=== PATIENT | male | born 1950 | race Caucasian/White ===

== ENCOUNTER 2017-06-24 23:58 | Emergency (ER) | payer OTHER ==
[~2017-06-24] VITALS: Ht 185.4 cm; Wt 104.3 kg
[~2017-06-24 23:58] MED LIST: ALBU90I INH; ALBU90OI INH; ALBU90OI6 INH; ALBU90OI61 INH; ALPR1 PO; AMIO200 PO; AMIT25 PO; AMOX250 PO; ARTAIN; ARTANE; ASPI81EC PO; ATOR40TA PO; AZIT250 PO; Aspir-Low81 MG PO; BENZ.5 PO; BENZ2 PO; CARV3.125 PO; CEPH500 PO; CHLO100 PO; CHOL10002 PO; CLON1 PO; CLON2 PO; CLOP75 PO; CODGUAEL PO; CRUTCH3 USE; DIGO.125 PO; DIPATR PO; DIVA250EC PO; DIVA250ER PO; DIVA500ER PO; FANAPT8 MG PO; FEBU40TA; FEBU40TA PO; FLORICET PO; FLUR15 PO; FURO40 PO; HALO5 PO; HYDACE10B PO; HYDACE5 PO; HYDHCL10EL PO; HYDMETSO OP; HYDPAM50 PO; LATUDA PO; LEVO750 PO; LISI10 PO; LISI20 PO; LISI5 PO; LITH300C PO; LOXA10 PO; MAGOXI400 PO; METO25ER PO; METO50 PO; METO50ER PO; NAPR500 PO; Namenda10 MG PO; OMEP20ER PO; OXYACE5T PO; OXYACE7.5T PO; OXYC15ER PO; OXYC1TAB11; OXYC1TAB11 PO; OXYC30ER PO; OXYC5 PO; Omeprazole20 M1 PO; Oxycodone-Apap1 EAC3; PALI6TA; POTCHL10ER PO; POTCHL20ER PO; PRED20 PO; Percocet 5-3251 EACH PO; QUET300 PO; RANI150 PO; RXTRAM50 PO; Roxicodone5 MG PO; SPIR25 PO; TEMA15 PO; TEMA30 PO; THORAZINE; TRAM50 PO; TRAZ150T57 PO; TRIA80TC; TRIA80TC TOP; Trihexyphenidyl2 MG PO; Trihexyphenidyl5 MG PO; VITAMIN D-32000 UNIT PO; VRAYLAR1.5 MG PO; WARF1 PO; WARF5 PO; XARELTO10 MG PO; XARELTO20 MG PO; Xanax0.5 MG PO; Zofran Odt4 MG SL; [UNRECOGNIZED DRUG - OTHER] PO
[2017-06-25] MEDS ORDERED: ENTRESTO 24 MG1 EACH PO (00:32)
[2017-06-25] MEDS ORDERED: TORSE20 PO (00:32)
[2017-06-25] MEDS ORDERED: LITH300C PO (00:33)
[2017-06-25 00:54] LABS: BASOPHILS ABSOLUTE AUTO 0.03 K/mm3 (0.00-0.23); BASOPHILS PERCENT AUTO 0 % (0-2); EOSINOPHILS ABSOLUTE AUTO 0.19 K/mm3 (0.00-0.68); EOSINOPHILS PERCENT AUTO 2 % (0-6); Hematocrit 40.9 % (37.0-53.0); Hemoglobin 13.2 g/dL (13.5-17.5); IMMATURE GRAN ABSOLUTE AUTO 0.06 K/mm3 (0.00-0.10); IMMATURE GRAN PERCENT AUTO 1 % (0-1); LYMPHOCYTES ABSOLUTE AUTO 1.21 K/mm3 (0.84-5.20); LYMPHOCYTES PERCENT AUTO 12 % (21-46); MONOCYTES ABSOLUTE AUTO 1.31 K/mm3 (0.16-1.47); MONOCYTES PERCENT AUTO 12 % (4-13); Mean Corpuscular HGB 30.9 pg (26.0-34.0); Mean Corpuscular HGB Conc 32.3 g/dL (31.5-36.5); Mean Corpuscular Volume 96 fL (80-100); Mean Platelet Volume 9.8 fL (9.1-12.4); NEUTROPHILS ABSOLUTE AUTO 7.73 K/mm3 (1.96-9.15); NEUTROPHILS PERCENT AUTO 73 % (41-73); Platelet Count 186 K/mm3 (150-400); RDW Coefficient Variation 13.6 % (11.7-14.2); RDW Standard Deviation 47.9 fL (35.1-46.3); Red Blood Cell Count 4.27 M/mm3 (4.30-5.90); White Blood Cell Count 10.53 K/mm3 (4.00-11.30)
== END 2017-06-25 02:09 | disposition home or self-care (01) ==
LOC: ER 23:58
PROVIDERS: Emergency Medicine
DX: M25.461 Effusion, right knee (principal); M25.561 Pain in right knee; F25.9 Schizoaffective disorder, unspecified; G20 Parkinson's disease; Z88.8 Allergy status to other drugs, medicaments and biological substances; Z88.5 Allergy status to narcotic agent; Z88.2 Allergy status to sulfonamides; Z79.899 Other long term (current) drug therapy; Z87.891 Personal history of nicotine dependence
CPT/HCPCS: 36415; 73562-RT; 85025; 85651; 86140; 99283

== ENCOUNTER 2017-06-27 14:56 | Emergency (ER) | payer OTHER ==
[~2017-06-27] VITALS: Ht 185.4 cm; Wt 104.3 kg
[~2017-06-27 14:56] MED LIST changes: +ENTRESTO 24 MG1 EACH PO; +TORSE20 PO
== END 2017-06-27 16:43 | disposition home or self-care (01) ==
LOC: ER 14:56
DX: S80.11XA Contusion of right lower leg, initial encounter (principal); F31.9 Bipolar disorder, unspecified; Z88.8 Allergy status to other drugs, medicaments and biological substances; Z88.2 Allergy status to sulfonamides; Z88.1 Allergy status to other antibiotic agents; Z79.899 Other long term (current) drug therapy; Z87.891 Personal history of nicotine dependence; X58.XXXA Exposure to other specified factors, initial encounter
CPT/HCPCS: 93971; 99284

== ENCOUNTER 2017-09-17 19:56 | Inpatient (IN) | payer OTHER ==
[~2017-09-17] VITALS: Ht 182.9 cm; Wt 100.6 kg
[~2017-09-17 19:56] MED LIST changes: +Amiodarone HCl200 MG PO
[2017-09-17 20:55] LABS: BASOPHILS ABSOLUTE AUTO 0.05 K/mm3 (0.00-0.23); BASOPHILS PERCENT AUTO 0 % (0-2); EOSINOPHILS ABSOLUTE AUTO 0.26 K/mm3 (0.00-0.68); EOSINOPHILS PERCENT AUTO 2 % (0-6); Hematocrit 40.6 % (37.0-53.0); Hemoglobin 13.2 g/dL (13.5-17.5); IMMATURE GRAN ABSOLUTE AUTO 0.06 K/mm3 (0.00-0.10); IMMATURE GRAN PERCENT AUTO 1 % (0-1); LYMPHOCYTES ABSOLUTE AUTO 1.38 K/mm3 (0.84-5.20); LYMPHOCYTES PERCENT AUTO 11 % (21-46); MONOCYTES ABSOLUTE AUTO 1.47 K/mm3 (0.16-1.47); MONOCYTES PERCENT AUTO 11 % (4-13); Mean Corpuscular HGB 29.9 pg (26.0-34.0); Mean Corpuscular HGB Conc 32.5 g/dL (31.5-36.5); Mean Corpuscular Volume 92 fL (80-100); Mean Platelet Volume 9.9 fL (9.1-12.4); NEUTROPHILS ABSOLUTE AUTO 9.75 K/mm3 (1.96-9.15); NEUTROPHILS PERCENT AUTO 75 % (41-73); Platelet Count 272 K/mm3 (150-400); RDW Coefficient Variation 13.8 % (11.7-14.2); Red Blood Cell Count 4.41 M/mm3 (4.30-5.90); White Blood Cell Count 12.97 K/mm3 (4.00-11.30)
[2017-09-17 21:29] LABS: Troponin I <0.015 ng/mL (0.000-0.040)
[2017-09-17 21:36] LABS: Alanine Aminotransfer (ALT/SGP 33 U/L (12-78); Albumin, Blood 3.3 g/dL (3.4-5.0); Albumin/Globulin Ratio 0.9 (0.8-1.8); Alk Phos 105 U/L (50-136); Anion Gap 10 mmol/L (6-16); Aspartate Aminotrans (AST/SGOT 23 U/L (12-37); Bilirubin, Total 0.6 mg/dL (0.1-1.0); Blood Urea Nitrogen 9 mg/dL (8-24); CO2, Blood 30 mmol/L (21-32); Calcium, Blood 8.4 mg/dL (8.5-10.1); Chloride, Blood 99 mmol/L (98-108); Creatinine, Blood 0.69 mg/dL (0.60-1.20); Globulin, Blood 3.5 g/dL (2.2-4.0); Glomerular Filtration Rate >60 (60-); Glucose, Blood 108 mg/dL (70-99); Potassium, Blood 3.6 mmol/L (3.5-5.5); Sodium, Blood 139 mmol/L (136-145); Total Protein, Blood 6.8 g/dL (6.4-8.2)
[2017-09-18 00:14] LABS: Lithium 0.52 mmol/L (0.60-1.20)
[2017-09-18 05:27] LABS: CHOL/HDL RATIO 2.5; Cholesterol 111 mg/dL (50-200); HDL Cholesterol 44 mg/dL (>39); LDL/HDL RATIO 1.1; Low Density Lipoprotein Chol 47 mg/dL (0-110); Triglycerides 102 mg/dL (30-160); Very Low Density Lipoprot Chol 20 mg/dL (6-32)
[2017-09-19 06:02] LABS: BASOPHILS ABSOLUTE AUTO 0.03 K/mm3 (0.00-0.23); BASOPHILS PERCENT AUTO 0 % (0-2); EOSINOPHILS ABSOLUTE AUTO 0.24 K/mm3 (0.00-0.68); EOSINOPHILS PERCENT AUTO 2 % (0-6); Hematocrit 41.5 % (37.0-53.0); Hemoglobin 13.5 g/dL (13.5-17.5); IMMATURE GRAN ABSOLUTE AUTO 0.05 K/mm3 (0.00-0.10); IMMATURE GRAN PERCENT AUTO 0 % (0-1); LYMPHOCYTES PERCENT AUTO 11 % (21-46); MONOCYTES ABSOLUTE AUTO 1.46 K/mm3 (0.16-1.47); MONOCYTES PERCENT AUTO 12 % (4-13); Mean Corpuscular HGB 30.5 pg (26.0-34.0); Mean Corpuscular HGB Conc 32.5 g/dL (31.5-36.5); Mean Corpuscular Volume 94 fL (80-100); Mean Platelet Volume 10.2 fL (9.1-12.4); NEUTROPHILS ABSOLUTE AUTO 8.86 K/mm3 (1.96-9.15); NEUTROPHILS PERCENT AUTO 74 % (41-73); Platelet Count 261 K/mm3 (150-400); RDW Coefficient Variation 13.6 % (11.7-14.2); RDW Standard Deviation 46.6 fL (35.1-46.3); Red Blood Cell Count 4.43 M/mm3 (4.30-5.90); White Blood Cell Count 11.94 K/mm3 (4.00-11.30)
[2017-09-19 06:26] LABS: Anion Gap 6 mmol/L (6-16); Blood Urea Nitrogen 11 mg/dL (8-24); Bun/Creatinine Ratio 16.7 (12.0-20.0); CO2, Blood 31 mmol/L (21-32); Calcium, Blood 8.7 mg/dL (8.5-10.1); Chloride, Blood 96 mmol/L (98-108); Creatinine, Blood 0.66 mg/dL (0.60-1.20); Glomerular Filtration Rate >60 (60-); Glucose, Blood 121 mg/dL (70-99); Phosphorus, Blood 2.8 mg/dL (2.5-4.9); Potassium, Blood 3.9 mmol/L (3.5-5.5); Sodium, Blood 133 mmol/L (136-145)
[2017-09-21 05:21] LABS: BASOPHILS ABSOLUTE AUTO 0.04 K/mm3 (0.00-0.23); BASOPHILS PERCENT AUTO 1 % (0-2); EOSINOPHILS ABSOLUTE AUTO 0.34 K/mm3 (0.00-0.68); EOSINOPHILS PERCENT AUTO 4 % (0-6); Hematocrit 38.3 % (37.0-53.0); Hemoglobin 12.5 g/dL (13.5-17.5); IMMATURE GRAN ABSOLUTE AUTO 0.04 K/mm3 (0.00-0.10); IMMATURE GRAN PERCENT AUTO 1 % (0-1); LYMPHOCYTES ABSOLUTE AUTO 1.34 K/mm3 (0.84-5.20); LYMPHOCYTES PERCENT AUTO 17 % (21-46); MONOCYTES ABSOLUTE AUTO 1.05 K/mm3 (0.16-1.47); MONOCYTES PERCENT AUTO 13 % (4-13); Mean Corpuscular HGB 30.6 pg (26.0-34.0); Mean Corpuscular HGB Conc 32.6 g/dL (31.5-36.5); Mean Corpuscular Volume 94 fL (80-100); NEUTROPHILS ABSOLUTE AUTO 5.26 K/mm3 (1.96-9.15); NEUTROPHILS PERCENT AUTO 65 % (41-73); Platelet Count 274 K/mm3 (150-400); RDW Coefficient Variation 13.6 % (11.7-14.2); RDW Standard Deviation 46.6 fL (35.1-46.3); Red Blood Cell Count 4.09 M/mm3 (4.30-5.90); White Blood Cell Count 8.07 K/mm3 (4.00-11.30)
[2017-09-21 05:49] LABS: Albumin, Blood 2.5 g/dL (3.4-5.0); Anion Gap 7 mmol/L (6-16); Blood Urea Nitrogen 8 mg/dL (8-24); Bun/Creatinine Ratio 10.9 (12.0-20.0); CO2, Blood 32 mmol/L (21-32); Calcium, Blood 8.8 mg/dL (8.5-10.1); Chloride, Blood 101 mmol/L (98-108); Creatinine, Blood 0.73 mg/dL (0.60-1.20); Glomerular Filtration Rate >60 (60-); Glucose, Blood 95 mg/dL (70-99); Phosphorus, Blood 2.5 mg/dL (2.5-4.9); Potassium, Blood 3.6 mmol/L (3.5-5.5); Sodium, Blood 140 mmol/L (136-145)
[2017-09-21] MEDS ORDERED: MIRALAX17 GM PO (13:12)
[2017-09-21] MEDS ORDERED: DOCU100 PO (13:13)
== END 2017-09-21 13:45 | disposition home or self-care (01) | DRG 392 ==
LOC: ER 19:56 → MEDS 19:57
PROVIDERS: Family Medicine; Internal Medicine; Physician Assistant
DX: K21.9 Gastro-esophageal reflux disease without esophagitis (principal); I50.22 Chronic systolic (congestive) heart failure; E87.1 Hypo-osmolality and hyponatremia; I25.10 Atherosclerotic heart disease of native coronary artery without angina pectoris; I48.0 Paroxysmal atrial fibrillation; Z95.1 Presence of aortocoronary bypass graft; Z87.891 Personal history of nicotine dependence; F25.0 Schizoaffective disorder, bipolar type; K76.0 Fatty (change of) liver, not elsewhere classified; K59.00 Constipation, unspecified; D72.829 Elevated white blood cell count, unspecified; T40.605A Adverse effect of unspecified narcotics, initial encounter; Y92.239 Unspecified place in hospital as the place of occurrence of the external cause; R40.0 Somnolence; K22.8 Other specified diseases of esophagus; E66.9 Obesity, unspecified; Z68.31 Body mass index [BMI] 31.0-31.9, adult
CPT/HCPCS: 36415; 36416; 71046; 74176; 74240; 80053; 80061; 80069; 80178; 83690; 84484; 85025; 93005; 93010; 94760; 96374; 96375; 96376; 99285-25; C9113; G0378; J2405

== ENCOUNTER → 2017-09-29 | Outpatient (CLI) | payer OTHER ==
[~2017-09-29] MED LIST changes: +DOCU100 PO; +MIRALAX17 GM PO
[2017-09-29 15:25] LABS: Adenovirus F 40/41 Not Detected (NOT DETECT); Astrovirus Not Detected (NOT DETECT); Campylobacter Sp Not Detected (NOT DETECT); Cryptosporidium Not Detected (NOT DETECT); Cyclospora Cayetanensis Not Detected (NOT DETECT); E. Coli O157 Not Detected (NOT DETECT); Entamoeba Histolytica Not Detected (NOT DETECT); Enteroaggregative E. coli-EAEC Not Detected (NOT DETECT); Enteropathogenic E. coli-EPEC Not Detected (NOT DETECT); Enterotoxigenic E. coli-ETEC Not Detected (NOT DETECT); Giardia Lamblia Not Detected (NOT DETECT); Norovirus GI/GII Not Detected (NOT DETECT); Plesiomonas Shigelloides Not Detected (NOT DETECT); Rotavirus A Not Detected (NOT DETECT); Salmonella Sp Not Detected (NOT DETECT); Sapovirus Not Detected (NOT DETECT); Shiga Toxin-prod E. coli-STEC Not Detected (NOT DETECT); Shigella/Enteroin E. coli-EIEC Not Detected (NOT DETECT); Vibrio Cholerae Not Detected (NOT DETECT); Vibrio Sp Not Detected (NOT DETECT); Yersinia Enterocolitica Not Detected (NOT DETECT)
== END ==
LOC: LAB 13:09 → LAB SHORT 13:09 → LAB FUT 09-17 14:25
PROVIDERS: Internal Medicine Gastroenterology
DX: R19.7 Diarrhea, unspecified (principal)
CPT/HCPCS: 87507

== ENCOUNTER 2017-10-29 18:57 | Emergency (ER) | payer OTHER ==
[~2017-10-29] VITALS: Ht 185.4 cm; Wt 99.8 kg
[2017-10-29 20:30] LABS: BASOPHILS ABSOLUTE AUTO 0.04 K/mm3 (0.00-0.23); BASOPHILS PERCENT AUTO 0 % (0-2); EOSINOPHILS ABSOLUTE AUTO 0.01 K/mm3 (0.00-0.68); EOSINOPHILS PERCENT AUTO 0 % (0-6); Hematocrit 36.6 % (37.0-53.0); IMMATURE GRAN ABSOLUTE AUTO 0.09 K/mm3 (0.00-0.10); IMMATURE GRAN PERCENT AUTO 1 % (0-1); LYMPHOCYTES ABSOLUTE AUTO 0.32 K/mm3 (0.84-5.20); LYMPHOCYTES PERCENT AUTO 2 % (21-46); MONOCYTES ABSOLUTE AUTO 1.01 K/mm3 (0.16-1.47); MONOCYTES PERCENT AUTO 8 % (4-13); Mean Corpuscular HGB 30.1 pg (26.0-34.0); Mean Corpuscular HGB Conc 32.8 g/dL (31.5-36.5); Mean Corpuscular Volume 92 fL (80-100); Mean Platelet Volume 10.1 fL (9.1-12.4); NEUTROPHILS ABSOLUTE AUTO 12.03 K/mm3 (1.96-9.15); NEUTROPHILS PERCENT AUTO 89 % (41-73); Platelet Count 172 K/mm3 (150-400); RDW Coefficient Variation 13.9 % (11.7-14.2); RDW Standard Deviation 47.2 fL (35.1-46.3); Red Blood Cell Count 3.99 M/mm3 (4.30-5.90)
[2017-10-29 20:59] LABS: Anion Gap 6 mmol/L (6-16); Blood Urea Nitrogen 9 mg/dL (8-24); Bun/Creatinine Ratio 8.7 (12.0-20.0); CO2, Blood 28 mmol/L (21-32); Calcium, Blood 7.9 mg/dL (8.5-10.1); Chloride, Blood 100 mmol/L (98-108); Creatinine, Blood 1.03 mg/dL (0.60-1.20); Glomerular Filtration Rate >60 (60-); Glucose, Blood 122 mg/dL (70-99); Potassium, Blood 3.9 mmol/L (3.5-5.5); Sodium, Blood 134 mmol/L (136-145); Troponin I <0.015 ng/mL (0.000-0.040)
== END 2017-10-29 21:55 | disposition home or self-care (01) ==
LOC: ER 18:57
PROVIDERS: Emergency Medicine
DX: H61.23 Impacted cerumen, bilateral (principal); T50.2X1A Poisoning by carbonic-anhydrase inhibitors, benzothiadiazides and other diuretics, accidental (unintentional), initial encounter; I48.91 Unspecified atrial fibrillation; I25.10 Atherosclerotic heart disease of native coronary artery without angina pectoris; I11.0 Hypertensive heart disease with heart failure; I50.9 Heart failure, unspecified; K21.9 Gastro-esophageal reflux disease without esophagitis; Z79.899 Other long term (current) drug therapy; Z79.51 Long term (current) use of inhaled steroids
CPT/HCPCS: 36415; 80048; 84484; 85025; 93005; 93010; 96360; 96361; 99283-25; J7030

== ENCOUNTER → 2017-11-12 | Outpatient (CLI) | payer OTHER ==
[~2017-11-12] MED LIST changes: +ACET325 PO; +Augmentin 875-1 EACH PO; +HYDR1TAB94 PO
== END | disposition home or self-care (01) ==
LOC: LAB SHORT 15:15 → LAB SRC 15:15
DX: L03.90 Cellulitis, unspecified (principal); S59.909A Unspecified injury of unspecified elbow, initial encounter; T14.8XXA Other injury of unspecified body region, initial encounter
CPT/HCPCS: 87070; 87075; 87077; 87147; 87186; 87205

== ENCOUNTER 2017-11-13 15:50 | Inpatient (IN) | payer OTHER ==
[~2017-11-13] VITALS: Ht 185.4 cm; Wt 99.3 kg
[~2017-11-13 15:50] MED LIST changes: -ACET325 PO; -Augmentin 875-1 EACH PO; -HYDR1TAB94 PO
[2017-11-13 19:22] LABS: BASOPHILS ABSOLUTE AUTO 0.06 K/mm3 (0.00-0.23); BASOPHILS PERCENT AUTO 1 % (0-2); EOSINOPHILS ABSOLUTE AUTO 0.32 K/mm3 (0.00-0.68); EOSINOPHILS PERCENT AUTO 4 % (0-6); Hematocrit 38.6 % (37.0-53.0); Hemoglobin 12.3 g/dL (13.5-17.5); IMMATURE GRAN ABSOLUTE AUTO 0.03 K/mm3 (0.00-0.10); IMMATURE GRAN PERCENT AUTO 0 % (0-1); LYMPHOCYTES ABSOLUTE AUTO 1.73 K/mm3 (0.84-5.20); LYMPHOCYTES PERCENT AUTO 20 % (21-46); MONOCYTES ABSOLUTE AUTO 0.82 K/mm3 (0.16-1.47); MONOCYTES PERCENT AUTO 10 % (4-13); Mean Corpuscular HGB 29.9 pg (26.0-34.0); Mean Corpuscular HGB Conc 31.9 g/dL (31.5-36.5); Mean Corpuscular Volume 94 fL (80-100); Mean Platelet Volume 9.6 fL (9.1-12.4); NEUTROPHILS ABSOLUTE AUTO 5.69 K/mm3 (1.96-9.15); NEUTROPHILS PERCENT AUTO 66 % (41-73); Platelet Count 292 K/mm3 (150-400); RDW Standard Deviation 48.6 fL (35.1-46.3); Red Blood Cell Count 4.11 M/mm3 (4.30-5.90); White Blood Cell Count 8.65 K/mm3 (4.00-11.30)
[2017-11-13 19:43] LABS: Alanine Aminotransfer (ALT/SGP 31 U/L (12-78); Alk Phos 121 U/L (50-136); Anion Gap 5 mmol/L (6-16); Aspartate Aminotrans (AST/SGOT 21 U/L (12-37); Bilirubin, Total 0.5 mg/dL (0.1-1.0); Blood Urea Nitrogen 6 mg/dL (8-24); CO2, Blood 28 mmol/L (21-32); Calcium, Blood 8.5 mg/dL (8.5-10.1); Chloride, Blood 106 mmol/L (98-108); Creatinine, Blood 0.85 mg/dL (0.60-1.20); Globulin, Blood 3.1 g/dL (2.2-4.0); Glomerular Filtration Rate >60 (60-); Glucose, Blood 85 mg/dL (70-99); Potassium, Blood 4.1 mmol/L (3.5-5.5); Sodium, Blood 139 mmol/L (136-145); Total Protein, Blood 6.1 g/dL (6.4-8.2)
[2017-11-14 06:31] LABS: BASOPHILS ABSOLUTE AUTO 0.04 K/mm3 (0.00-0.23); BASOPHILS PERCENT AUTO 1 % (0-2); EOSINOPHILS ABSOLUTE AUTO 0.29 K/mm3 (0.00-0.68); EOSINOPHILS PERCENT AUTO 4 % (0-6); Hematocrit 35.2 % (37.0-53.0); Hemoglobin 11.3 g/dL (13.5-17.5); IMMATURE GRAN ABSOLUTE AUTO 0.03 K/mm3 (0.00-0.10); IMMATURE GRAN PERCENT AUTO 0 % (0-1); LYMPHOCYTES ABSOLUTE AUTO 1.17 K/mm3 (0.84-5.20); LYMPHOCYTES PERCENT AUTO 17 % (21-46); MONOCYTES ABSOLUTE AUTO 0.72 K/mm3 (0.16-1.47); MONOCYTES PERCENT AUTO 11 % (4-13); Mean Corpuscular HGB Conc 32.1 g/dL (31.5-36.5); Mean Corpuscular Volume 93 fL (80-100); Mean Platelet Volume 9.4 fL (9.1-12.4); NEUTROPHILS ABSOLUTE AUTO 4.58 K/mm3 (1.96-9.15); NEUTROPHILS PERCENT AUTO 67 % (41-73); Platelet Count 272 K/mm3 (150-400); RDW Coefficient Variation 14.2 % (11.7-14.2); RDW Standard Deviation 48.3 fL (35.1-46.3); Red Blood Cell Count 3.77 M/mm3 (4.30-5.90); White Blood Cell Count 6.83 K/mm3 (4.00-11.30)
[2017-11-14 06:46] LABS: Anion Gap 6 mmol/L (6-16); Blood Urea Nitrogen 8 mg/dL (8-24); Bun/Creatinine Ratio 8.6 (12.0-20.0); CO2, Blood 30 mmol/L (21-32); Calcium, Blood 8.4 mg/dL (8.5-10.1); Chloride, Blood 106 mmol/L (98-108); Creatinine, Blood 0.93 mg/dL (0.60-1.20); Glomerular Filtration Rate >60 (60-); Glucose, Blood 129 mg/dL (70-99); Potassium, Blood 3.8 mmol/L (3.5-5.5); Sodium, Blood 142 mmol/L (136-145)
[2017-11-15] MEDS ORDERED: ACET325 PO (11:27)
[2017-11-15] MEDS ORDERED: Augmentin 875-1 EACH PO (11:28)
[2017-11-15] MEDS ORDERED: HYDR1TAB94 PO (11:30)
== END 2017-11-15 12:06 | disposition home or self-care (01) | DRG 511 ==
LOC: ER 15:50 → MEDS 20:10 → ENPENDDIS 11-15 10:00 → MEDS 11-15 12:06
PROVIDERS: Family Medicine; Orthopaedic Surgery; Physician Assistant
PROC: 0PBL0ZZ Excision of Left Ulna, Open Approach (ICD-10-PCS; principal; 2017-11-14 19:15)
DX: M71.122 Other infective bursitis, left elbow (principal); I50.20 Unspecified systolic (congestive) heart failure; L03.114 Cellulitis of left upper limb; I48.91 Unspecified atrial fibrillation; I11.0 Hypertensive heart disease with heart failure; B95.62 Methicillin resistant Staphylococcus aureus infection as the cause of diseases classified elsewhere; Z95.1 Presence of aortocoronary bypass graft; I25.10 Atherosclerotic heart disease of native coronary artery without angina pectoris; F20.9 Schizophrenia, unspecified; K21.9 Gastro-esophageal reflux disease without esophagitis; F31.9 Bipolar disorder, unspecified; Z87.891 Personal history of nicotine dependence; D64.9 Anemia, unspecified
CPT/HCPCS: 36415; 73201; 73221; 80048; 80053; 82947; 83605; 85025; 87070; 87071; 87075; 87077; 87147; 87186; 87205; 96365; 96367; 99285-25; J0692; J2001; J2250; J2405; J2543; J3010; J3370; J7050; Q9967

== ENCOUNTER 2017-12-18 15:28 | Emergency (ER) | payer OTHER ==
[~2017-12-18] VITALS: Ht 188 cm; Wt 95.2 kg
[~2017-12-18 15:28] MED LIST changes: +ACET325 PO; +Augmentin 875-1 EACH PO; +HYDR1TAB94 PO
[2017-12-18] MEDS ORDERED: HYDPAM50 PO (15:52)
[2017-12-18] MEDS ORDERED: Trihexyphenidyl5 MG PO (15:55)
[2017-12-18 16:25] LABS: BASOPHILS ABSOLUTE AUTO 0.07 K/mm3 (0.00-0.23); BASOPHILS PERCENT AUTO 1 % (0-2); EOSINOPHILS ABSOLUTE AUTO 0.32 K/mm3 (0.00-0.68); EOSINOPHILS PERCENT AUTO 4 % (0-6); Hematocrit 36.6 % (37.0-53.0); Hemoglobin 11.6 g/dL (13.5-17.5); IMMATURE GRAN ABSOLUTE AUTO 0.03 K/mm3 (0.00-0.10); IMMATURE GRAN PERCENT AUTO 0 % (0-1); LYMPHOCYTES ABSOLUTE AUTO 1.32 K/mm3 (0.84-5.20); LYMPHOCYTES PERCENT AUTO 16 % (21-46); MONOCYTES ABSOLUTE AUTO 0.76 K/mm3 (0.16-1.47); MONOCYTES PERCENT AUTO 9 % (4-13); Mean Corpuscular HGB 29.1 pg (26.0-34.0); Mean Corpuscular HGB Conc 31.7 g/dL (31.5-36.5); Mean Corpuscular Volume 92 fL (80-100); Mean Platelet Volume 10.2 fL (9.1-12.4); NEUTROPHILS ABSOLUTE AUTO 5.75 K/mm3 (1.96-9.15); NEUTROPHILS PERCENT AUTO 70 % (41-73); Platelet Count 253 K/mm3 (150-400); RDW Coefficient Variation 14.3 % (11.7-14.2); Red Blood Cell Count 3.98 M/mm3 (4.30-5.90); White Blood Cell Count 8.25 K/mm3 (4.00-11.30)
[2017-12-18 16:47] LABS: Alanine Aminotransfer (ALT/SGP 51 U/L (12-78); Albumin, Blood 2.9 g/dL (3.4-5.0); Alk Phos 128 U/L (50-136); Anion Gap 5 mmol/L (6-16); Aspartate Aminotrans (AST/SGOT 34 U/L (12-37); Bilirubin, Total 0.5 mg/dL (0.1-1.0); Blood Urea Nitrogen 11 mg/dL (8-24); CO2, Blood 31 mmol/L (21-32); Calcium, Blood 8.2 mg/dL (8.5-10.1); Chloride, Blood 103 mmol/L (98-108); Creatinine, Blood 0.84 mg/dL (0.60-1.20); Globulin, Blood 2.8 g/dL (2.2-4.0); Glomerular Filtration Rate >60 (60-); Glucose, Blood 103 mg/dL (70-99); Potassium, Blood 3.7 mmol/L (3.5-5.5); Sodium, Blood 139 mmol/L (136-145); Total Protein, Blood 5.7 g/dL (6.4-8.2)
[2017-12-18 16:49] LABS: Ethanol (Alcohol), Blood, Med <3 mg/dL
[2017-12-18 16:58] LABS: Source, Urine Clean Catch
[2017-12-18 17:19] LABS: Appearance, Urine Clear (Clear); Bilirubin, Urine Neg (Neg); Blood, Urine 2+ (Neg); Color, Urine Yellow (P-Yellow); Glucose Qualitative, Urine Neg (Neg); Ketones, Urine Neg (Neg); Leukocyte Esterase, Urine Neg (Neg); Nitrite, Urine Neg (Neg); Protein, Urine 1+ (Neg); Specific Gravity, Urine 1.015 (1.003-1.022); Urobilinogen, Urine NORM (Normal); pH, Urine 6.5 (5.0-8.0)
[2017-12-18 17:33] LABS: U Amphetamine Screen Not Detected; U Barbituate Screen Not Detected; U Benzodiazapine Screen DETECTED; U Buprenorphine Screen Not Detected; U Cannabinoids Screen Not Detected; U Cocaine Screen Not Detected; U Methadone Screen Not Detected; U Methamphetamine Screen Not Detected; U Opiates Screen DETECTED; U Oxycodone Screen Not Detected; U Phencyclidine Screen Not Detected; U Propoxyphene Screen Not Detected
[2017-12-18 17:42] LABS: Squamous Epithelial Cells Rare /hpf (Few)
[2017-12-18 17:43] LABS: Bacteria Not Seen /hpf; White Blood Cells, Urine 0-2 /hpf (0-5)
== END 2017-12-18 18:14 | disposition home or self-care (01) ==
LOC: ER 15:28
PROVIDERS: Emergency Medicine; Internal Medicine
DX: G93.40 Encephalopathy, unspecified (principal); I11.0 Hypertensive heart disease with heart failure; I50.42 Chronic combined systolic (congestive) and diastolic (congestive) heart failure; I25.10 Atherosclerotic heart disease of native coronary artery without angina pectoris; I48.91 Unspecified atrial fibrillation; Z88.8 Allergy status to other drugs, medicaments and biological substances; Z88.2 Allergy status to sulfonamides; Z88.1 Allergy status to other antibiotic agents; Z79.899 Other long term (current) drug therapy; Z87.891 Personal history of nicotine dependence
CPT/HCPCS: 36415; 70450; 80053; 81001; 82140; 82947; 83690; 85025; 99285-25; G0480

== ENCOUNTER 2018-01-23 00:20 | Day surgery (SDC) | payer OTHER | END 2018-01-23 22:54 | disposition home or self-care (01) | LOC: WOUND 00:20 | DX: S51.002D Unspecified open wound of left elbow, subsequent encounter (principal); M71.022 Abscess of bursa, left elbow ==

== ENCOUNTER 2018-01-26 01:35 | Day surgery (SDC) | payer OTHER | END 2018-01-26 22:42 | disposition home or self-care (01) | LOC: WOUND 01:35 | DX: S51.002D Unspecified open wound of left elbow, subsequent encounter (principal); M71.022 Abscess of bursa, left elbow; M25.522 Pain in left elbow; E11.9 Type 2 diabetes mellitus without complications; I10 Essential (primary) hypertension ==

== ENCOUNTER 2018-01-28 00:18 | Day surgery (SDC) | payer OTHER | END 2018-01-28 22:50 | disposition home or self-care (01) | LOC: WOUND 00:18 | DX: S51.002D Unspecified open wound of left elbow, subsequent encounter (principal); M25.522 Pain in left elbow; M70.22 Olecranon bursitis, left elbow; Z79.01 Long term (current) use of anticoagulants | CPT/HCPCS: G0463 ==

== ENCOUNTER 2018-01-30 00:12 | Day surgery (SDC) | payer OTHER | END 2018-01-30 22:49 | disposition home or self-care (01) | LOC: WOUND 00:12 | DX: S51.002D Unspecified open wound of left elbow, subsequent encounter (principal); M25.522 Pain in left elbow; M70.22 Olecranon bursitis, left elbow ==

== ENCOUNTER 2018-02-02 00:19 | Day surgery (SDC) | payer OTHER | END 2018-02-02 22:44 | disposition home or self-care (01) | LOC: WOUND 00:19 | DX: S51.002D Unspecified open wound of left elbow, subsequent encounter (principal); M25.522 Pain in left elbow; M70.22 Olecranon bursitis, left elbow; E11.9 Type 2 diabetes mellitus without complications; I10 Essential (primary) hypertension ==

== ENCOUNTER 2018-02-06 10:15 | Day surgery (SDC) | payer OTHER | END 2018-02-06 22:58 | disposition home or self-care (01) | LOC: WOUND 10:15 | DX: S51.002D Unspecified open wound of left elbow, subsequent encounter (principal); M70.22 Olecranon bursitis, left elbow; W22.8XXD Striking against or struck by other objects, subsequent encounter ==

== ENCOUNTER 2018-02-09 11:00 | Day surgery (SDC) | payer OTHER | END 2018-02-09 22:39 | disposition home or self-care (01) | LOC: WOUND 11:00 | DX: S51.002D Unspecified open wound of left elbow, subsequent encounter (principal); M25.522 Pain in left elbow; M70.22 Olecranon bursitis, left elbow; W22.8XXD Striking against or struck by other objects, subsequent encounter ==

== ENCOUNTER 2018-02-11 11:15 | Day surgery (SDC) | payer OTHER | END 2018-02-11 22:44 | disposition home or self-care (01) | LOC: WOUND 11:15 | DX: S51.002D Unspecified open wound of left elbow, subsequent encounter (principal); M70.22 Olecranon bursitis, left elbow; M25.522 Pain in left elbow; W22.8XXD Striking against or struck by other objects, subsequent encounter ==

== ENCOUNTER 2018-02-12 13:10 | Day surgery (SDC) | payer OTHER | END 2018-02-12 22:44 | disposition home or self-care (01) | LOC: WOUND 13:10 | DX: S51.002D Unspecified open wound of left elbow, subsequent encounter (principal); M70.22 Olecranon bursitis, left elbow; M25.522 Pain in left elbow; W22.8XXD Striking against or struck by other objects, subsequent encounter ==

== ENCOUNTER 2018-02-16 11:00 | Day surgery (SDC) | payer OTHER | END 2018-02-16 22:42 | disposition home or self-care (01) | LOC: WOUND 11:00 | DX: S51.002D Unspecified open wound of left elbow, subsequent encounter (principal); S51.802D Unspecified open wound of left forearm, subsequent encounter; M71.022 Abscess of bursa, left elbow; M25.522 Pain in left elbow; E11.9 Type 2 diabetes mellitus without complications; I10 Essential (primary) hypertension; Z88.2 Allergy status to sulfonamides; Z88.8 Allergy status to other drugs, medicaments and biological substances; Z79.01 Long term (current) use of anticoagulants ==

== ENCOUNTER 2018-02-18 11:03 | Day surgery (SDC) | payer OTHER | END 2018-02-18 22:40 | disposition home or self-care (01) | LOC: WOUND 11:03 | DX: S51.002D Unspecified open wound of left elbow, subsequent encounter (principal); M25.522 Pain in left elbow; M70.22 Olecranon bursitis, left elbow; E11.9 Type 2 diabetes mellitus without complications; I10 Essential (primary) hypertension; Z88.2 Allergy status to sulfonamides; Z88.8 Allergy status to other drugs, medicaments and biological substances; Z79.01 Long term (current) use of anticoagulants | CPT/HCPCS: G0463 ==

== ENCOUNTER 2018-02-23 11:00 | Day surgery (SDC) | payer OTHER | END 2018-02-23 23:06 | disposition home or self-care (01) | LOC: WOUND 11:00 | DX: S51.002D Unspecified open wound of left elbow, subsequent encounter (principal); M70.22 Olecranon bursitis, left elbow; M25.522 Pain in left elbow; E11.9 Type 2 diabetes mellitus without complications; I10 Essential (primary) hypertension; Z79.01 Long term (current) use of anticoagulants; W22.8XXD Striking against or struck by other objects, subsequent encounter ==

== ENCOUNTER 2018-03-02 10:20 | Day surgery (SDC) | payer OTHER | END 2018-03-02 22:47 | disposition home or self-care (01) | LOC: WOUND 10:20 | PROC: 0HBEXZZ Excision of Left Lower Arm Skin, External Approach (ICD-10-PCS; principal; 2018-03-02) | DX: S51.002A Unspecified open wound of left elbow, initial encounter (principal); M25.522 Pain in left elbow; M70.22 Olecranon bursitis, left elbow; E11.9 Type 2 diabetes mellitus without complications; I10 Essential (primary) hypertension; I48.91 Unspecified atrial fibrillation ==

== ENCOUNTER 2018-03-09 14:45 | Day surgery (SDC) | payer OTHER | END 2018-03-09 23:00 | disposition home or self-care (01) | LOC: WOUND 14:45 | DX: S51.002D Unspecified open wound of left elbow, subsequent encounter (principal); M71.022 Abscess of bursa, left elbow; E11.9 Type 2 diabetes mellitus without complications; I10 Essential (primary) hypertension; Z88.2 Allergy status to sulfonamides; Z88.8 Allergy status to other drugs, medicaments and biological substances | CPT/HCPCS: G0463 ==

== ENCOUNTER 2018-03-16 10:25 | Day surgery (SDC) | payer OTHER | END 2018-03-16 22:45 | disposition home or self-care (01) | LOC: WOUND 10:25 | DX: T81.31XA Disruption of external operation (surgical) wound, not elsewhere classified, initial encounter (principal); S51.002A Unspecified open wound of left elbow, initial encounter; M71.022 Abscess of bursa, left elbow; M70.22 Olecranon bursitis, left elbow; E11.9 Type 2 diabetes mellitus without complications; I10 Essential (primary) hypertension; I25.10 Atherosclerotic heart disease of native coronary artery without angina pectoris; Z95.1 Presence of aortocoronary bypass graft; I48.91 Unspecified atrial fibrillation ==

== ENCOUNTER 2018-03-30 00:28 | Day surgery (SDC) | payer OTHER | END 2018-03-30 23:02 | disposition home or self-care (01) | LOC: WOUND 00:28 | DX: S51.002D Unspecified open wound of left elbow, subsequent encounter (principal); M71.022 Abscess of bursa, left elbow; E11.9 Type 2 diabetes mellitus without complications; I10 Essential (primary) hypertension; Z88.2 Allergy status to sulfonamides; Z88.8 Allergy status to other drugs, medicaments and biological substances; Z79.01 Long term (current) use of anticoagulants | CPT/HCPCS: G0463 ==

== ENCOUNTER 2018-04-20 00:42 | Day surgery (SDC) | payer OTHER | END 2018-04-20 22:52 | disposition home or self-care (01) | LOC: WOUND 00:42 | DX: S51.002D Unspecified open wound of left elbow, subsequent encounter (principal); M25.522 Pain in left elbow; M70.22 Olecranon bursitis, left elbow; E11.9 Type 2 diabetes mellitus without complications; I10 Essential (primary) hypertension; Z88.2 Allergy status to sulfonamides; Z88.8 Allergy status to other drugs, medicaments and biological substances; Z79.01 Long term (current) use of anticoagulants | CPT/HCPCS: G0463 ==

== ENCOUNTER 2018-05-04 09:50 | Day surgery (SDC) | payer OTHER | END 2018-05-04 11:05 | disposition home or self-care (01) | LOC: WOUND 09:50 | DX: S51.002A Unspecified open wound of left elbow, initial encounter (principal); M70.22 Olecranon bursitis, left elbow; I11.0 Hypertensive heart disease with heart failure; I50.9 Heart failure, unspecified; I25.10 Atherosclerotic heart disease of native coronary artery without angina pectoris; I25.2 Old myocardial infarction; F03.90 Unspecified dementia, unspecified severity, without behavioral disturbance, psychotic disturbance, mood disturbance, and anxiety; E11.9 Type 2 diabetes mellitus without complications; Z95.1 Presence of aortocoronary bypass graft | CPT/HCPCS: G0463 ==

== ENCOUNTER 2018-05-25 07:54 | Day surgery (SDC) | payer OTHER ==
[~2018-05-25] VITALS: Ht 185.4 cm; Wt 98.5 kg
[2018-05-25] MEDS ORDERED: ELIQUIS5 MG (08:56)
--- NOTE | 2018-05-25 09:04 | NUR ---
05/25/18 0904 Nory Sexton 1 IV MISS IN RAC BY BLAKE VALVE 1 IV MISS IN R AC BY BLAKE UNABLE TO GET IN THE VEIN 1 IV MISS IN RW BY BLAKE VALVE 1 GOOD IV IN LH BY ARUN PT TOW
== END 2018-05-25 10:32 | disposition home or self-care (01) ==
LOC: ORSCSDS 07:54
PROVIDERS: Internal Medicine Gastroenterology
PROC: 0DBK8ZX Excision of Ascending Colon, Via Natural or Artificial Opening Endoscopic, Diagnostic (ICD-10-PCS; principal; 2018-05-25 09:15)
DX: Z86.010 Personal history of colon polyps (principal); Z80.0 Family history of malignant neoplasm of digestive organs; D12.2 Benign neoplasm of ascending colon; K64.8 Other hemorrhoids; I25.10 Atherosclerotic heart disease of native coronary artery without angina pectoris; I48.91 Unspecified atrial fibrillation; Z79.01 Long term (current) use of anticoagulants; Z87.891 Personal history of nicotine dependence; K21.9 Gastro-esophageal reflux disease without esophagitis; Z79.899 Other long term (current) drug therapy
CPT/HCPCS: 88305; J2704; J7120

== ENCOUNTER 2018-06-26 00:16 | Day surgery (SDC) | payer OTHER ==
[~2018-06-26 00:16] MED LIST changes: +ELIQUIS5 MG
== END 2018-06-26 23:15 | disposition home or self-care (01) ==
LOC: WOUND 00:16
DX: L89.022 Pressure ulcer of left elbow, stage 2 (principal); I11.0 Hypertensive heart disease with heart failure; I50.9 Heart failure, unspecified; E11.9 Type 2 diabetes mellitus without complications; I25.10 Atherosclerotic heart disease of native coronary artery without angina pectoris; I25.2 Old myocardial infarction; I48.91 Unspecified atrial fibrillation; F31.9 Bipolar disorder, unspecified; F20.9 Schizophrenia, unspecified; F03.90 Unspecified dementia, unspecified severity, without behavioral disturbance, psychotic disturbance, mood disturbance, and anxiety; Z88.8 Allergy status to other drugs, medicaments and biological substances; Z88.2 Allergy status to sulfonamides; Z87.891 Personal history of nicotine dependence
CPT/HCPCS: G0463

== ENCOUNTER 2018-07-01 10:58 | Day surgery (SDC) | payer OTHER | END 2018-07-01 22:54 | disposition home or self-care (01) | LOC: WOUND 10:58 | DX: L89.022 Pressure ulcer of left elbow, stage 2 (principal); I11.0 Hypertensive heart disease with heart failure; I50.9 Heart failure, unspecified; E11.9 Type 2 diabetes mellitus without complications; I25.10 Atherosclerotic heart disease of native coronary artery without angina pectoris; I48.91 Unspecified atrial fibrillation; I25.2 Old myocardial infarction; F03.90 Unspecified dementia, unspecified severity, without behavioral disturbance, psychotic disturbance, mood disturbance, and anxiety | CPT/HCPCS: G0463 ==

== ENCOUNTER → 2020-01-22 | Outpatient (CLI) | payer MEDICARE ==
[~2020-01-22] MED LIST changes: +ALLEGRA ALLERG180 MG PO; +CARV6.25 PO; +CLON.5 PO; +CLOT10 MT; +DIAZ10 PO; +DONE5 PO; +DONEPEZIL HCL10 M1 PO; +ELIQUIS5 MG PO; +FLUT.05NI; +LOSA50 PO; +Lithium Carbon450 MG PO; +MIRT15 PO; +MOTOFEN PO; -Omeprazole20 M1 PO; +QUET25 PO; +SEROQUEL400 MG PO; +VISCOUS LIDOCAINE PO
[2020-01-25 20:10] LABS: ADENOVIRUS F 40/41 Not Detected (Not Detected); ASTROVIRUS Not Detected (Not Detected); C DIFFICILE TOXIN A/B Not Detected (Not Detected); CRYPTOSPORIDIUM Not Detected (Not Detected); CYCLOSPORA CAYETANENSIS Not Detected (Not Detected); ENTAMOEBA HISTOLYTICA Not Detected (Not Detected); ENTEROAGGREGATIVE E COLI Not Detected (Not Detected); ENTEROPATHOGENIC E COLI Not Detected (Not Detected); ENTEROTOXIGENIC E COLI Not Detected (Not Detected); GIARDIA LAMBLIA Not Detected (Not Detected); NOROVIRUS GI/GII Not Detected (Not Detected); PLESIOMONAS SHIGELLOIDES Not Detected (Not Detected); ROTAVIRUS A Not Detected (Not Detected); SALMONELLA Not Detected (Not Detected); SAPOVIRUS Not Detected (Not Detected); SHIGA-TOXIN-PRODUCING E COLI Not Detected (Not Detected); SHIGELLA/ENTEROINVASIVE E COLI Not Detected (Not Detected); VIBRIO Not Detected (Not Detected); VIBRIO CHOLERAE Not Detected (Not Detected); YERSINIA ENTEROCOLITICA Not Detected (Not Detected)
== END | disposition home or self-care (01) ==
LOC: LAB SHORT 06:50 → LAB 06:50
PROVIDERS: Physician Assistant
DX: R10.32 Left lower quadrant pain (principal); R19.7 Diarrhea, unspecified
CPT/HCPCS: 0097U

== ENCOUNTER 2020-03-27 10:46 | Day surgery (SDC) | payer OTHER ==
[~2020-03-27] VITALS: Ht 182.9 cm; Wt 87.9 kg
[~2020-03-27 10:46] MED LIST changes: -ALLEGRA ALLERG180 MG PO; -CLON.5 PO; -CLOT10 MT; -DIAZ10 PO; -DONE5 PO; -DONEPEZIL HCL10 M1 PO; -ELIQUIS5 MG PO; -FLUT.05NI; -LOSA50 PO; -MIRT15 PO; -MOTOFEN PO; -QUET25 PO; -SEROQUEL400 MG PO; -VISCOUS LIDOCAINE PO
[2020-05-16] MEDS ORDERED: ELIQUIS5 MG PO (17:34)
[2020-05-16] MEDS ORDERED: DONE5 PO (17:35)
[2020-05-16] MEDS ORDERED: DIAZ10 PO (17:35)
[2020-05-16] MEDS ORDERED: CLOT10 MT (17:35)
[2020-05-16] MEDS ORDERED: FLUT.05NI (17:36)
[2020-05-16] MEDS ORDERED: VISCOUS LIDOCAINE PO (17:38)
[2020-05-16] MEDS ORDERED: LOSA50 PO (17:39)
[2020-05-16] MEDS ORDERED: MIRT15 PO (17:40)
== END 2020-03-27 12:39 | disposition home or self-care (01) ==
LOC: ORSCSDS 10:46
PROVIDERS: Internal Medicine Gastroenterology
PROC: 0DB68ZX Excision of Stomach, Via Natural or Artificial Opening Endoscopic, Diagnostic (ICD-10-PCS; principal; 2020-03-27 12:00)
PROC: 0DB58ZX Excision of Esophagus, Via Natural or Artificial Opening Endoscopic, Diagnostic (ICD-10-PCS; principal; 2020-03-27 12:00)
DX: R11.0 Nausea (principal); R10.9 Unspecified abdominal pain; R63.4 Abnormal weight loss; K22.70 Barrett's esophagus without dysplasia; K20.90 Esophagitis, unspecified without bleeding; B37.81 Candidal esophagitis; G47.33 Obstructive sleep apnea (adult) (pediatric); I48.0 Paroxysmal atrial fibrillation; Z87.891 Personal history of nicotine dependence; E11.9 Type 2 diabetes mellitus without complications; E78.5 Hyperlipidemia, unspecified; Z79.899 Other long term (current) drug therapy; Z79.01 Long term (current) use of anticoagulants
CPT/HCPCS: 88305; 88342; J2704; J7120

== ENCOUNTER 2020-05-17 06:03 | Day surgery (SDC) | payer OTHER ==
[~2020-05-17] VITALS: Ht 182.9 cm; Wt 88.0 kg
[~2020-05-17 06:03] MED LIST changes: +CLOT10 MT; +DIAZ10 PO; +DONE5 PO; +ELIQUIS5 MG PO; +FLUT.05NI; +LOSA50 PO; +MIRT15 PO; +VISCOUS LIDOCAINE PO
[2020-05-17] MEDS ORDERED: ALLEGRA ALLERG180 MG PO (06:48)
--- NOTE | 2020-05-17 09:15 | NUR ---
PATIENT RETURNED TO THE [facility]UTIONS SPECIALIST S/P AIDE INTERVENTION. RIGHT GROIN ANGIOSEAL CHECKED. SITE CDI, NO HEMATOMA, NO BLEEDING. PLACED ON THE MONITOR AND VVS. Geovanny CRUZ NOTED. CALLED WHO IS IN THE PARKING LOT AND INVITED HER TO THE BEDSIDE TO ASSIST PATIENT WHILE IN RECOVERY. PEDAL PULSES 2+ PALPABLE. CALL LIGHT IN REACH.
--- NOTE | 2020-05-17 10:05 | NUR ---
UNABLE TO REACH THE . WILL TRY AGAIN LATER. BREAKFAST TRAY SET UP FOR THE PATIENT AND HE FED HIMSELF. WATCHING TV. CALL LIGHT IN REACH.
--- NOTE | 2020-05-17 10:53 | NUR ---
AT THE BEDSIDE NOW, UPDATED ON PATIENT PROGRESS AND POTENTIAL DISCHARGE TIME. GROIN SITE UNCHANGED. PATIENT UP TO THE RESTRROM. DENIES DIZZINESS. NO BLEEDING NOTED.
--- NOTE | 2020-05-17 11:08 | NUR ---
REVIEWED ALL DISCHARGE INSTRUCTIONS WITH THE PATIENT AND . ALL QUESTIONS ANSWERED. REMOVED PIV FROM THE LEFT ARM. PRESSURE DRESSING APPLIED. ALL BELONGINGS GATHERED. CALLED FOR WHEELCHAIR AND DISCHARGED HOME WTH DRIVING. RIGHT GROIN STABLE WITH DRESSING IN PLACE.
== END 2020-05-17 11:25 | disposition home or self-care (01) ==
LOC: MHTC 06:03
DX: K55.1 Chronic vascular disorders of intestine (principal); I25.10 Atherosclerotic heart disease of native coronary artery without angina pectoris; I71.4 Abdominal aortic aneurysm, without rupture; I48.19 Other persistent atrial fibrillation; E11.9 Type 2 diabetes mellitus without complications; K21.9 Gastro-esophageal reflux disease without esophagitis; E78.5 Hyperlipidemia, unspecified; G47.33 Obstructive sleep apnea (adult) (pediatric); Z87.891 Personal history of nicotine dependence; Z95.1 Presence of aortocoronary bypass graft; Z79.01 Long term (current) use of anticoagulants
CPT/HCPCS: 36245; 37246; 75726; 99152; 99153; C1725; C1760; C1769; C1887; C1894; J1644; J2060; J2250; J3010; J7030; J7050; Q9967

== ENCOUNTER 2020-06-05 06:29 | Day surgery (SDC) | payer OTHER ==
[~2020-06-05] VITALS: Ht 182.9 cm; Wt 76.0 kg
[~2020-06-05 06:29] MED LIST changes: +ALLEGRA ALLERG180 MG PO
[2020-06-05] MEDS ORDERED: CLON.5 PO (07:10)
--- NOTE | 2020-06-05 09:54 | NUR ---
PT ARRIVED BACK TO RECOVERY ROOM IN BED. RIGHT FEMORAL GROIN SITE SOFT NON-TENDER WITH NO HEMATOMA, NO BLEEDING AND INTACT DRESSING. R DP 1+ PULSE. PT DENIES SHARP BACK PAIN. PT DOES DESCRIBE SORENESS ACROSS LOWER BACK. PT DESCRIBES STOACH ACHE AND SOME NAUSEA. DR JIMENEZ IN ROOM TO ASSESS PT SEE NEW ORDERS. CALL LIGHT IN REACH. PT DENIES CHEST PAIN.
--- NOTE | 2020-06-05 10:17 | NUR ---
PT STATES BACK SORENESS IMPROVING. R FEM GROIN SOFT WITH NO HEMATOMA, NO BLEEDING; PT STATES SOME SORENESS AT R FEM GROIN SITE. STOMACH SOFT; HURTS ON LEFT SIDE TO WHICH DR JIMENEZ TOLD PT THAT IS TO EXPECTED WITH THE PROCEDURE. PT STATES NAUSEA IMPROVING.
--- NOTE | 2020-06-05 10:37 | NUR ---
NO CHANGES TO R FEM GROIN SITE. PT'S STOMACH IS SOFT, BUT SENSITIVE TO TOUCH. PT STATES STOMACH HURTS "BAD" BUT NAUSEA DIMINISHED. DR JIMENEZ INFORMED.
--- NOTE | 2020-06-05 10:39 | NUR ---
SEE NEW ORDER FROM DR. SANCHEZ.
--- NOTE | 2020-06-05 11:07 | NUR ---
PT STATES STOMACH PAIN IMPROVING. NO OTHER CHANGES.
--- NOTE | 2020-06-05 11:33 | NUR ---
NO CHANGES TO R FEM GROIN SITE; HOB UP TO 30 DEGREES. PT STATES STOMACH PAIN A LITTLE BETTER.
--- NOTE | 2020-06-05 11:44 | NUR ---
DR JIMENEZ IN RECOVERY ROOM TO SEE AND ACCESS PT. DR JIMENEZ TOLD PT TO CALL HIS OFFICE TOMORROW IF STOMACH PAIN DOES NOT CONTINUE TO IMPROVE.
--- NOTE | 2020-06-05 12:02 | NUR ---
DISCHARGE INSTRUCTIONS REVIEWED ALL QUESTIONS ANSWERED. NO CHANGES TO R FEM GROIN SITE; STILL SOFT WITH NO HEMATOMA, NO BLEEDING AND INTACT DRESSING. 20 G IV DISCONTINUED FROM LEFT AC BY ARUN CENTENO WITH INTACT CANNULA.
== END 2020-06-05 12:00 | disposition home or self-care (01) ==
LOC: MHTC 06:29
DX: K55.1 Chronic vascular disorders of intestine (principal); I25.10 Atherosclerotic heart disease of native coronary artery without angina pectoris; I71.4 Abdominal aortic aneurysm, without rupture; E11.9 Type 2 diabetes mellitus without complications; I48.91 Unspecified atrial fibrillation; G47.33 Obstructive sleep apnea (adult) (pediatric); K21.9 Gastro-esophageal reflux disease without esophagitis; E78.5 Hyperlipidemia, unspecified; I34.0 Nonrheumatic mitral (valve) insufficiency; R63.4 Abnormal weight loss; R23.8 Other skin changes; F31.9 Bipolar disorder, unspecified; F20.9 Schizophrenia, unspecified; F41.3 Other mixed anxiety disorders; Z68.23 Body mass index [BMI] 23.0-23.9, adult; Z79.01 Long term (current) use of anticoagulants; Z86.010 Personal history of colon polyps; Z87.891 Personal history of nicotine dependence; Z95.1 Presence of aortocoronary bypass graft
CPT/HCPCS: 76937; C1760; C1769; C1874; C1887; C1894; J1644; J2001; J2250; J2370; J2405; J2704; J3010; J7030; J7040; J7050; Q9967

== ENCOUNTER 2020-07-18 07:43 | Day surgery (SDC) | payer OTHER ==
[~2020-07-18 07:43] MED LIST changes: +CLON.5 PO
[2020-07-18] MEDS ORDERED: CLOT10 MT (08:29)
[2020-07-18] MEDS ORDERED: MOTOFEN PO (08:32)
--- NOTE | 2020-07-18 14:14 | NUR ---
DISCHARGE PT DRESSED SELF WITH NO COMPLICATIONS. SITE WITH NO BLEEDING, OOZING OR DRAINAGE NOTED. PT WAS ABLE TO DRINK AND KEEP THE FLUIDS DOWN. PT AND SPOUSE STATE THEIR UNDERSTANDING OF DISCHARGE AND SITE MANAGEMENT CARE AND DENY ANY QUESTIONS OR CONCERNS UPON DISCHARGE. PT INFORMED PROVIDER WILL ARRANGE FOR A NUTRITION CONSULT WITHIN THE NEXT FEW DAYS. IV DCD WITH CATH INTACT. VSS. PT TAKEN TO EXIT VIA WHEELCHAIR WHERE WAS WAITING WITH CAR.
== END 2020-07-18 14:28 | disposition home or self-care (01) ==
LOC: MHTC 07:43
DX: R63.4 Abnormal weight loss (principal); R11.2 Nausea with vomiting, unspecified; R19.7 Diarrhea, unspecified; Z68.24 Body mass index [BMI] 24.0-24.9, adult; K55.1 Chronic vascular disorders of intestine; I71.4 Abdominal aortic aneurysm, without rupture; I48.91 Unspecified atrial fibrillation; I25.10 Atherosclerotic heart disease of native coronary artery without angina pectoris; K21.9 Gastro-esophageal reflux disease without esophagitis; E78.5 Hyperlipidemia, unspecified; E11.9 Type 2 diabetes mellitus without complications; G47.33 Obstructive sleep apnea (adult) (pediatric); Z95.1 Presence of aortocoronary bypass graft; Z96.651 Presence of right artificial knee joint; Z95.828 Presence of other vascular implants and grafts; Z87.891 Personal history of nicotine dependence; Z88.1 Allergy status to other antibiotic agents; Z88.2 Allergy status to sulfonamides; Z88.8 Allergy status to other drugs, medicaments and biological substances; Z79.01 Long term (current) use of anticoagulants
CPT/HCPCS: 49440; 49446; 99152; 99153; C1769; C1887; J2060; J2250; J3010; J7030; Q9967

== ENCOUNTER 2020-07-29 22:55 | Emergency (ER) | payer OTHER ==
[~2020-07-29] VITALS: Ht 182.9 cm; Wt 74.8 kg
[~2020-07-29 22:55] MED LIST changes: +MOTOFEN PO
[2020-07-30 03:08] LABS: BASOPHILS ABSOLUTE AUTO 0.06 K/mm3 (0.00-0.23); BASOPHILS PERCENT AUTO 1 % (0-2); EOSINOPHILS ABSOLUTE AUTO 0.43 K/mm3 (0.00-0.68); EOSINOPHILS PERCENT AUTO 5 % (0-6); Hematocrit 43.1 % (37.0-53.0); Hemoglobin 13.8 g/dL (13.5-17.5); IMMATURE GRAN ABSOLUTE AUTO 0.04 K/mm3 (0.00-0.10); IMMATURE GRAN PERCENT AUTO 1 % (0-1); LYMPHOCYTES ABSOLUTE AUTO 1.81 K/mm3 (0.84-5.20); LYMPHOCYTES PERCENT AUTO 23 % (21-46); MONOCYTES ABSOLUTE AUTO 0.76 K/mm3 (0.16-1.47); MONOCYTES PERCENT AUTO 10 % (4-13); Mean Corpuscular HGB 29.9 pg (26.0-34.0); Mean Corpuscular Volume 94 fL (80-100); Mean Platelet Volume 9.6 fL (9.1-12.4); NEUTROPHILS ABSOLUTE AUTO 4.91 K/mm3 (1.96-9.15); NEUTROPHILS PERCENT AUTO 61 % (41-73); Platelet Count 255 K/mm3 (150-400); RDW Coefficient Variation 13.9 % (11.7-14.2); RDW Standard Deviation 47.8 fL (35.1-46.3); Red Blood Cell Count 4.61 M/mm3 (4.30-5.90); White Blood Cell Count 8.01 K/mm3 (4.00-11.30)
[2020-07-30 03:26] LABS: International Normalized Ratio 1.07; Prothrombin Time Results 11.5 Sec (9.7-11.5)
[2020-07-30 03:28] LABS: Alanine Aminotransfer (ALT/SGP 50 U/L (12-78); Albumin, Blood 3.7 g/dL (3.4-5.0); Albumin/Globulin Ratio 1.1 (0.8-1.8); Alk Phos 114 U/L (50-136); Anion Gap 1 mmol/L (6-16); Aspartate Aminotrans (AST/SGOT 41 U/L (12-37); Bilirubin, Total 0.4 mg/dL (0.1-1.0); Blood Urea Nitrogen 11 mg/dL (8-24); Bun/Creatinine Ratio 15.1 (12.0-20.0); CO2, Blood 27 mmol/L (21-32); Calcium, Blood 8.8 mg/dL (8.5-10.1); Chloride, Blood 106 mmol/L (98-108); Creatinine, Blood 0.73 mg/dL (0.60-1.20); Globulin, Blood 3.5 g/dL (2.2-4.0); Glomerular Filtration Rate >60 (60-); Glucose, Blood 108 mg/dL (70-99); Potassium, Blood 4.7 mmol/L (3.5-5.5); Sodium, Blood 134 mmol/L (136-145); Total Protein, Blood 7.2 g/dL (6.4-8.2)
[2020-07-30] MEDS ORDERED: DONEPEZIL HCL10 M1 PO (03:38)
[2020-07-30 05:48] LABS: Troponin I <0.015 ng/mL (0.000-0.040)
[2020-07-30] MEDS ORDERED: MOTOFEN PO (15:13)
[2020-07-30] MEDS ORDERED: OMEP20ER PO (15:15)
[2020-07-30] MEDS ORDERED: SEROQUEL400 MG PO (15:16)
[2020-07-30] MEDS ORDERED: QUET25 PO (15:17)
== END 2020-07-30 09:00 | disposition home or self-care (01) ==
LOC: ER 22:55
PROVIDERS: Emergency Medicine; Physician Assistant
DX: K94.20 Gastrostomy complication, unspecified (principal); I48.91 Unspecified atrial fibrillation; I10 Essential (primary) hypertension; Z88.2 Allergy status to sulfonamides; Z88.1 Allergy status to other antibiotic agents; Z88.8 Allergy status to other drugs, medicaments and biological substances; Z79.899 Other long term (current) drug therapy; Z87.891 Personal history of nicotine dependence
CPT/HCPCS: 36415; 71045; 74018; 74177; 80053; 83605; 83690; 84484; 85025; 85610; 85730; 86850; 86900; 86901; 96361; 96374; 96375; 96376; 99283-25; J2270; J2405; J7120; Q9967

== ENCOUNTER 2020-07-30 14:23 | Day surgery (SDC) | payer OTHER ==
[~2020-07-30 14:23] MED LIST changes: +DONEPEZIL HCL10 M1 PO
[2020-07-30] MEDS ORDERED: MOTOFEN PO (15:13)
[2020-07-30] MEDS ORDERED: OMEP20ER PO (15:15)
[2020-07-30] MEDS ORDERED: SEROQUEL400 MG PO (15:16)
[2020-07-30] MEDS ORDERED: QUET25 PO (15:17)
--- NOTE | 2020-07-30 17:02 | NUR ---
PT ALSO HAS MESENTERIC ARTERY STENOSIS WITH MESENTERIC ANGIOGRAM ON 06/05/20 WITH STENTS. HE HAS CHRONIC NAUSEA, VOMITING AND DIARRHEA.
== END 2020-07-30 15:38 | disposition home or self-care (01) ==
LOC: ATC 14:23
DX: E64.0 Sequelae of protein-calorie malnutrition (principal); Z68.1 Body mass index [BMI] 19.9 or less, adult; Z71.3 Dietary counseling and surveillance; I48.91 Unspecified atrial fibrillation; F31.9 Bipolar disorder, unspecified; I25.10 Atherosclerotic heart disease of native coronary artery without angina pectoris; E11.9 Type 2 diabetes mellitus without complications; K21.9 Gastro-esophageal reflux disease without esophagitis; E78.5 Hyperlipidemia, unspecified; G47.33 Obstructive sleep apnea (adult) (pediatric); Z88.1 Allergy status to other antibiotic agents; Z88.8 Allergy status to other drugs, medicaments and biological substances
CPT/HCPCS: 96360; J7030

== ENCOUNTER 2020-08-02 04:56 | Day surgery (SDC) | payer OTHER ==
[~2020-08-02 04:56] MED LIST changes: +QUET25 PO; +SEROQUEL400 MG PO
--- NOTE | 2020-08-02 16:33 | NUR ---
3 UNSUCCESSFUL POWERGLIDE INSERTIONS BY TWO RNS.
== END 2020-08-02 17:32 | disposition home or self-care (01) ==
LOC: ATC 04:56
DX: K55.1 Chronic vascular disorders of intestine (principal); E64.0 Sequelae of protein-calorie malnutrition; Z71.3 Dietary counseling and surveillance; E11.9 Type 2 diabetes mellitus without complications; I25.5 Ischemic cardiomyopathy; I25.10 Atherosclerotic heart disease of native coronary artery without angina pectoris; I48.19 Other persistent atrial fibrillation; Z79.01 Long term (current) use of anticoagulants; K21.9 Gastro-esophageal reflux disease without esophagitis; I71.4 Abdominal aortic aneurysm, without rupture; G47.33 Obstructive sleep apnea (adult) (pediatric); Z95.1 Presence of aortocoronary bypass graft; Z87.891 Personal history of nicotine dependence; Z88.1 Allergy status to other antibiotic agents; Z88.2 Allergy status to sulfonamides; Z88.8 Allergy status to other drugs, medicaments and biological substances; Z96.651 Presence of right artificial knee joint; Z93.4 Other artificial openings of gastrointestinal tract status; Z68.24 Body mass index [BMI] 24.0-24.9, adult; Z95.828 Presence of other vascular implants and grafts
CPT/HCPCS: 96360; J2001; J7030

== ENCOUNTER 2020-08-04 01:05 | Day surgery (SDC) | payer OTHER ==
--- NOTE | 2020-08-04 11:34 | NUR ---
PT COMING TOMORROW FOR POWERGLIDE PLACEMENT.
== END 2020-08-04 10:09 | disposition home or self-care (01) ==
LOC: ATC 01:05
DX: E64.0 Sequelae of protein-calorie malnutrition (principal); E11.9 Type 2 diabetes mellitus without complications; I25.5 Ischemic cardiomyopathy; I25.10 Atherosclerotic heart disease of native coronary artery without angina pectoris; K21.9 Gastro-esophageal reflux disease without esophagitis; I71.4 Abdominal aortic aneurysm, without rupture; I34.0 Nonrheumatic mitral (valve) insufficiency; I48.19 Other persistent atrial fibrillation; Z71.3 Dietary counseling and surveillance; Z95.1 Presence of aortocoronary bypass graft; Z96.651 Presence of right artificial knee joint; Z87.891 Personal history of nicotine dependence; Z88.8 Allergy status to other drugs, medicaments and biological substances; Z88.5 Allergy status to narcotic agent; Z88.1 Allergy status to other antibiotic agents; Z79.01 Long term (current) use of anticoagulants; Z68.24 Body mass index [BMI] 24.0-24.9, adult
CPT/HCPCS: 96360; J7030

== ENCOUNTER 2020-08-07 00:18 | Day surgery (SDC) | payer OTHER | END 2020-08-07 16:30 | disposition home or self-care (01) | LOC: ATC 00:18 | DX: E64.0 Sequelae of protein-calorie malnutrition (principal); I71.4 Abdominal aortic aneurysm, without rupture; E11.9 Type 2 diabetes mellitus without complications; I25.5 Ischemic cardiomyopathy; I25.10 Atherosclerotic heart disease of native coronary artery without angina pectoris; K21.9 Gastro-esophageal reflux disease without esophagitis; I34.0 Nonrheumatic mitral (valve) insufficiency; I48.19 Other persistent atrial fibrillation; Z71.3 Dietary counseling and surveillance; Z87.19 Personal history of other diseases of the digestive system; Z95.1 Presence of aortocoronary bypass graft; Z87.891 Personal history of nicotine dependence; Z88.8 Allergy status to other drugs, medicaments and biological substances; Z88.1 Allergy status to other antibiotic agents; Z79.01 Long term (current) use of anticoagulants; Z96.651 Presence of right artificial knee joint; Z68.24 Body mass index [BMI] 24.0-24.9, adult | CPT/HCPCS: 96360; J7030 ==

== ENCOUNTER 2020-08-09 03:12 | Day surgery (SDC) | payer OTHER ==
--- NOTE | 2020-08-09 15:35 | NUR ---
WRAPPED WITH 2X2'S, COBAN AND NETTING FOR USE FRIDAY
== END 2020-08-09 15:36 | disposition home or self-care (01) ==
LOC: ATC 03:12
DX: R11.2 Nausea with vomiting, unspecified (principal); R41.3 Other amnesia; R63.4 Abnormal weight loss; I71.4 Abdominal aortic aneurysm, without rupture; E44.1 Mild protein-calorie malnutrition; I48.91 Unspecified atrial fibrillation; E11.9 Type 2 diabetes mellitus without complications; I25.5 Ischemic cardiomyopathy; K55.1 Chronic vascular disorders of intestine; I25.10 Atherosclerotic heart disease of native coronary artery without angina pectoris; E78.5 Hyperlipidemia, unspecified; K21.9 Gastro-esophageal reflux disease without esophagitis; I34.0 Nonrheumatic mitral (valve) insufficiency; G47.33 Obstructive sleep apnea (adult) (pediatric); Z71.3 Dietary counseling and surveillance; Z87.891 Personal history of nicotine dependence; Z95.1 Presence of aortocoronary bypass graft; Z88.1 Allergy status to other antibiotic agents; Z88.8 Allergy status to other drugs, medicaments and biological substances; Z79.01 Long term (current) use of anticoagulants; Z93.4 Other artificial openings of gastrointestinal tract status; Z68.24 Body mass index [BMI] 24.0-24.9, adult
CPT/HCPCS: 96360; J7030

== ENCOUNTER 2020-08-11 14:53 | Day surgery (SDC) | payer OTHER | END 2020-08-11 16:11 | disposition home or self-care (01) | LOC: ATC 14:53 | DX: E44.1 Mild protein-calorie malnutrition (principal); K55.1 Chronic vascular disorders of intestine; R11.2 Nausea with vomiting, unspecified; R19.7 Diarrhea, unspecified; I71.4 Abdominal aortic aneurysm, without rupture; E11.9 Type 2 diabetes mellitus without complications; I25.10 Atherosclerotic heart disease of native coronary artery without angina pectoris; I48.19 Other persistent atrial fibrillation; Z95.1 Presence of aortocoronary bypass graft; Z79.01 Long term (current) use of anticoagulants; Z87.891 Personal history of nicotine dependence; Z88.1 Allergy status to other antibiotic agents; Z88.8 Allergy status to other drugs, medicaments and biological substances; Z71.3 Dietary counseling and surveillance; Z68.1 Body mass index [BMI] 19.9 or less, adult; E66.01 Morbid (severe) obesity due to excess calories | CPT/HCPCS: 96360; J7030 ==

== ENCOUNTER 2021-03-09 15:09 | Emergency (ER) | payer MEDICARE ==
[~2021-03-09] VITALS: Ht 185.4 cm; Wt 83.9 kg
[2021-03-09 16:18] LABS: BASOPHILS ABSOLUTE AUTO 0.05 K/mm3 (0.00-0.23); BASOPHILS PERCENT AUTO 1 % (0-2); EOSINOPHILS ABSOLUTE AUTO 0.34 K/mm3 (0.00-0.68); EOSINOPHILS PERCENT AUTO 5 % (0-6); Hematocrit 47.7 % (37.0-53.0); Hemoglobin 15.1 g/dL (13.5-17.5); IMMATURE GRAN ABSOLUTE AUTO 0.03 K/mm3 (0.00-0.10); IMMATURE GRAN PERCENT AUTO 1 % (0-1); LYMPHOCYTES ABSOLUTE AUTO 1.25 K/mm3 (0.84-5.20); LYMPHOCYTES PERCENT AUTO 20 % (21-46); MONOCYTES ABSOLUTE AUTO 0.72 K/mm3 (0.16-1.47); MONOCYTES PERCENT AUTO 11 % (4-13); Mean Corpuscular HGB 29.6 pg (26.0-34.0); Mean Corpuscular HGB Conc 31.7 g/dL (31.5-36.5); Mean Corpuscular Volume 94 fL (80-100); Mean Platelet Volume 9.3 fL (9.1-12.4); NEUTROPHILS ABSOLUTE AUTO 3.99 K/mm3 (1.96-9.15); NEUTROPHILS PERCENT AUTO 63 % (41-73); Platelet Count 167 K/mm3 (150-400); RDW Coefficient Variation 14.4 % (11.7-14.2); RDW Standard Deviation 50.1 fL (35.1-46.3); White Blood Cell Count 6.38 K/mm3 (4.00-11.30)
[2021-03-09 16:41] LABS: Alanine Aminotransfer (ALT/SGP 34 U/L (12-78); Albumin, Blood 3.5 g/dL (3.4-5.0); Alk Phos 54 U/L (50-136); Anion Gap 1 mmol/L (6-16); Aspartate Aminotrans (AST/SGOT 33 U/L (12-37); Bilirubin, Total 0.4 mg/dL (0.1-1.0); Blood Urea Nitrogen 12 mg/dL (8-24); CO2, Blood 32 mmol/L (21-32); Chloride, Blood 106 mmol/L (98-108); Creatinine, Blood 0.75 mg/dL (0.60-1.20); Globulin, Blood 3.4 g/dL (2.2-4.0); Glomerular Filtration Rate >60 (60-); Glucose, Blood 90 mg/dL (70-99); Potassium, Blood 4.9 mmol/L (3.5-5.5); Sodium, Blood 139 mmol/L (136-145); Total Protein, Blood 6.9 g/dL (6.4-8.2); Troponin I <0.015 ng/mL (0.000-0.040)
[2021-03-09] MEDS ORDERED: ONDA4 PO (19:38)
[2021-03-09] MEDS ORDERED: Acetaminophen500 MG PO (19:38)
== END 2021-03-09 19:43 | disposition home or self-care (01) ==
LOC: ER 15:09
PROVIDERS: Physician Assistant
DX: S06.0X9A Concussion with loss of consciousness of unspecified duration, initial encounter (principal); I11.0 Hypertensive heart disease with heart failure; I50.9 Heart failure, unspecified; K21.9 Gastro-esophageal reflux disease without esophagitis; Z79.899 Other long term (current) drug therapy; Z88.2 Allergy status to sulfonamides; Z88.8 Allergy status to other drugs, medicaments and biological substances; W19.XXXA Unspecified fall, initial encounter
CPT/HCPCS: 36415; 70450; 71045; 80053; 83690; 83880; 84484; 85025; 93005; 93010; 96374; 99284-25; A9270; J1100; J2765

== ENCOUNTER 2021-03-11 21:33 | Emergency (ER) | payer MEDICARE ==
[~2021-03-11] VITALS: Ht 185.4 cm; Wt 90.7 kg
[~2021-03-11 21:33] MED LIST changes: +Acetaminophen500 MG PO; +ONDA4 PO
[2021-03-11 22:16] LABS: BASOPHILS ABSOLUTE AUTO 0.05 K/mm3 (0.00-0.23); BASOPHILS PERCENT AUTO 1 % (0-2); EOSINOPHILS ABSOLUTE AUTO 0.27 K/mm3 (0.00-0.68); EOSINOPHILS PERCENT AUTO 4 % (0-6); Hematocrit 47.1 % (37.0-53.0); Hemoglobin 14.8 g/dL (13.5-17.5); IMMATURE GRAN ABSOLUTE AUTO 0.03 K/mm3 (0.00-0.10); IMMATURE GRAN PERCENT AUTO 0 % (0-1); LYMPHOCYTES ABSOLUTE AUTO 1.94 K/mm3 (0.84-5.20); LYMPHOCYTES PERCENT AUTO 26 % (21-46); MONOCYTES PERCENT AUTO 12 % (4-13); Mean Corpuscular HGB 29.7 pg (26.0-34.0); Mean Corpuscular HGB Conc 31.4 g/dL (31.5-36.5); Mean Corpuscular Volume 95 fL (80-100); Mean Platelet Volume 9.7 fL (9.1-12.4); NEUTROPHILS PERCENT AUTO 57 % (41-73); Platelet Count 157 K/mm3 (150-400); RDW Standard Deviation 52.3 fL (35.1-46.3); Red Blood Cell Count 4.98 M/mm3 (4.30-5.90); White Blood Cell Count 7.49 K/mm3 (4.00-11.30)
[2021-03-11 22:33] LABS: Alanine Aminotransfer (ALT/SGP 42 U/L (12-78); Albumin, Blood 3.3 g/dL (3.4-5.0); Albumin/Globulin Ratio 1.1 (0.8-1.8); Alk Phos 51 U/L (50-136); Anion Gap 3 mmol/L (6-16); Aspartate Aminotrans (AST/SGOT 34 U/L (12-37); Bilirubin, Total 0.4 mg/dL (0.1-1.0); Blood Urea Nitrogen 12 mg/dL (8-24); Bun/Creatinine Ratio 14.2 (12.0-20.0); CO2, Blood 29 mmol/L (21-32); Calcium, Blood 8.7 mg/dL (8.5-10.1); Chloride, Blood 112 mmol/L (98-108); Creatinine, Blood 0.85 mg/dL (0.60-1.20); Globulin, Blood 3.1 g/dL (2.2-4.0); Glomerular Filtration Rate >60 (60-); Glucose, Blood 131 mg/dL (70-99); Sodium, Blood 144 mmol/L (136-145); Total Protein, Blood 6.4 g/dL (6.4-8.2)
[2021-03-12] MEDS ORDERED: DOCU100 PO (01:32)
== END 2021-03-12 01:47 | disposition home or self-care (01) ==
LOC: ER 21:33
PROVIDERS: Physician Assistant
DX: K59.00 Constipation, unspecified (principal); I48.91 Unspecified atrial fibrillation; I11.0 Hypertensive heart disease with heart failure; I50.9 Heart failure, unspecified; K21.9 Gastro-esophageal reflux disease without esophagitis; Z79.899 Other long term (current) drug therapy; Z88.2 Allergy status to sulfonamides
CPT/HCPCS: 36415; 74177; 80053; 83690; 85025; 96374; 99284-25; A9270; J1885; Q9967

== ENCOUNTER 2021-04-04 06:10 | Day surgery (SDC) | payer MEDICARE ==
[~2021-04-04] VITALS: Ht 182.9 cm; Wt 88.0 kg
[~2021-04-04 06:10] MED LIST changes: +DEPAKOTE ER500 M2 PO
--- NOTE | 2021-04-04 11:10 | NUR ---
PT VERBALIZES UNDERSTANDING WRITTEN AND VERBAL ORDERS. IV DC'D. CATH INTACT. PRESSURE DSG APPLIED. SITES REMAIN CLEAR. VSS. PT DRESSES SELF WITHOUT DIFF. PT DC TO HOME VIA WC BY S/O
== END 2021-04-04 11:20 | disposition home or self-care (01) ==
LOC: MHTC 06:10
DX: K55.1 Chronic vascular disorders of intestine (principal); R63.4 Abnormal weight loss; R10.30 Lower abdominal pain, unspecified; I25.10 Atherosclerotic heart disease of native coronary artery without angina pectoris; E11.9 Type 2 diabetes mellitus without complications; Z93.1 Gastrostomy status; E78.5 Hyperlipidemia, unspecified; Z87.891 Personal history of nicotine dependence; Z88.1 Allergy status to other antibiotic agents; Z88.2 Allergy status to sulfonamides; Z88.8 Allergy status to other drugs, medicaments and biological substances; Z79.01 Long term (current) use of anticoagulants
CPT/HCPCS: 76937; 99152; 99153; C1725; C1760; C1769; C1887; C1894; J1644; J2250; J3010; J7030; J7050; Q9967

== ENCOUNTER 2021-04-12 15:50 | Emergency (ER) | payer MEDICARE ==
[~2021-04-12] VITALS: Ht 182.9 cm; Wt 88.0 kg
[2021-04-12 16:37] LABS: BASOPHILS ABSOLUTE AUTO 0.07 K/mm3 (0.00-0.23); BASOPHILS PERCENT AUTO 1 % (0-2); EOSINOPHILS ABSOLUTE AUTO 0.37 K/mm3 (0.00-0.68); EOSINOPHILS PERCENT AUTO 6 % (0-6); Hematocrit 44.9 % (37.0-53.0); Hemoglobin 14.8 g/dL (13.5-17.5); IMMATURE GRAN ABSOLUTE AUTO 0.02 K/mm3 (0.00-0.10); IMMATURE GRAN PERCENT AUTO 0 % (0-1); LYMPHOCYTES ABSOLUTE AUTO 1.46 K/mm3 (0.84-5.20); LYMPHOCYTES PERCENT AUTO 22 % (21-46); MONOCYTES ABSOLUTE AUTO 0.65 K/mm3 (0.16-1.47); MONOCYTES PERCENT AUTO 10 % (4-13); Mean Corpuscular HGB 30.4 pg (26.0-34.0); Mean Corpuscular Volume 92 fL (80-100); Mean Platelet Volume 10.2 fL (9.1-12.4); NEUTROPHILS ABSOLUTE AUTO 4.09 K/mm3 (1.96-9.15); NEUTROPHILS PERCENT AUTO 61 % (41-73); Platelet Count 178 K/mm3 (150-400); RDW Coefficient Variation 14.4 % (11.7-14.2); RDW Standard Deviation 49.2 fL (35.1-46.3); Red Blood Cell Count 4.87 M/mm3 (4.30-5.90); White Blood Cell Count 6.66 K/mm3 (4.00-11.30)
[2021-04-12 16:58] LABS: Alanine Aminotransfer (ALT/SGP 44 U/L (12-78); Albumin, Blood 3.6 g/dL (3.4-5.0); Albumin/Globulin Ratio 1.1 (0.8-1.8); Alk Phos 62 U/L (50-136); Anion Gap 2 mmol/L (6-16); Aspartate Aminotrans (AST/SGOT 40 U/L (12-37); Bilirubin, Total 0.7 mg/dL (0.1-1.0); Blood Urea Nitrogen 11 mg/dL (8-24); Bun/Creatinine Ratio 12.4 (12.0-20.0); CO2, Blood 28 mmol/L (21-32); Calcium, Blood 8.9 mg/dL (8.5-10.1); Chloride, Blood 108 mmol/L (98-108); Creatinine, Blood 0.89 mg/dL (0.60-1.20); Globulin, Blood 3.3 g/dL (2.2-4.0); Glomerular Filtration Rate >60 (60-); Glucose, Blood 90 mg/dL (70-99); Potassium, Blood 4.6 mmol/L (3.5-5.5); Sodium, Blood 138 mmol/L (136-145); Total Protein, Blood 6.9 g/dL (6.4-8.2)
== END 2021-04-12 18:06 | disposition left against medical advice (07) ==
LOC: ER 15:50
PROVIDERS: Physician Assistant
DX: R10.32 Left lower quadrant pain (principal); Z53.21 Procedure and treatment not carried out due to patient leaving prior to being seen by health care provider
CPT/HCPCS: 36415; 74177; 80053; 83690; 85025; 99284-25; Q9967

== ENCOUNTER 2021-04-22 01:51 | Emergency (ER) | payer MEDICARE ==
[~2021-04-22] VITALS: Ht 182.9 cm; Wt 90.7 kg
[2021-04-22 04:03] LABS: BASOPHILS ABSOLUTE AUTO 0.04 K/mm3 (0.00-0.23); BASOPHILS PERCENT AUTO 1 % (0-2); EOSINOPHILS ABSOLUTE AUTO 0.18 K/mm3 (0.00-0.68); EOSINOPHILS PERCENT AUTO 3 % (0-6); Hematocrit 44.7 % (37.0-53.0); Hemoglobin 14.6 g/dL (13.5-17.5); IMMATURE GRAN ABSOLUTE AUTO 0.02 K/mm3 (0.00-0.10); IMMATURE GRAN PERCENT AUTO 0 % (0-1); LYMPHOCYTES ABSOLUTE AUTO 1.62 K/mm3 (0.84-5.20); LYMPHOCYTES PERCENT AUTO 27 % (21-46); MONOCYTES PERCENT AUTO 13 % (4-13); Mean Corpuscular HGB Conc 32.7 g/dL (31.5-36.5); Mean Corpuscular Volume 92 fL (80-100); Mean Platelet Volume 9.4 fL (9.1-12.4); NEUTROPHILS ABSOLUTE AUTO 3.31 K/mm3 (1.96-9.15); NEUTROPHILS PERCENT AUTO 56 % (41-73); Platelet Count 162 K/mm3 (150-400); RDW Coefficient Variation 14.5 % (11.7-14.2); RDW Standard Deviation 49.1 fL (35.1-46.3); Red Blood Cell Count 4.86 M/mm3 (4.30-5.90); White Blood Cell Count 5.97 K/mm3 (4.00-11.30)
[2021-04-22 04:19] LABS: Alanine Aminotransfer (ALT/SGP 45 U/L (12-78); Albumin, Blood 3.4 g/dL (3.4-5.0); Alk Phos 63 U/L (50-136); Anion Gap 5 mmol/L (6-16); Aspartate Aminotrans (AST/SGOT 42 U/L (12-37); Bilirubin, Total 0.5 mg/dL (0.1-1.0); Blood Urea Nitrogen 9 mg/dL (8-24); Bun/Creatinine Ratio 11.9 (12.0-20.0); CO2, Blood 28 mmol/L (21-32); Calcium, Blood 8.6 mg/dL (8.5-10.1); Chloride, Blood 106 mmol/L (98-108); Creatinine, Blood 0.76 mg/dL (0.60-1.20); Globulin, Blood 3.3 g/dL (2.2-4.0); Glomerular Filtration Rate >60 (60-); Glucose, Blood 100 mg/dL (70-99); Potassium, Blood 4.2 mmol/L (3.5-5.5); Sodium, Blood 139 mmol/L (136-145); Total Protein, Blood 6.7 g/dL (6.4-8.2)
[2021-04-22] MEDS ORDERED: METR500 PO (05:39)
[2021-04-22] MEDS ORDERED: CIPR500 PO (05:39)
[2021-05-08] MEDS ORDERED: CLOT10 MT (17:14)
[2021-05-08] MEDS ORDERED: HYDROCODONE-AC1 EA10 PO (17:15)
[2021-05-09] MEDS ORDERED: KETO.5OPSO LEFTEYE (08:45)
[2021-05-09] MEDS ORDERED: PRED FORTE5 ML LEFTEYE (08:46)
[2021-05-09] MEDS ORDERED: ONDA4ODT MM ×2 (08:46→08:47)
[2021-05-09] MEDS ORDERED: MOTOFEN PO (08:49)
[2021-06-05] MEDS ORDERED: DIVA500EC PO (10:49)
[2021-06-05] MEDS ORDERED: CLOT10 MT (10:49)
[2021-06-05] MEDS ORDERED: FLONASE ALLERG9.9 M2 (10:49)
[2021-06-05] MEDS ORDERED: HYDR1TAB94 PO (10:49)
[2021-06-05] MEDS ORDERED: QUET25 PO (10:50)
[2021-06-05] MEDS ORDERED: VISTARIL (10:50)
== END 2021-04-22 05:45 | disposition home or self-care (01) ==
LOC: ER 01:51
PROVIDERS: Student in an Organized Health Care Education/Training Program
DX: K52.9 Noninfective gastroenteritis and colitis, unspecified (principal); K21.9 Gastro-esophageal reflux disease without esophagitis; I11.0 Hypertensive heart disease with heart failure; I50.9 Heart failure, unspecified; I48.91 Unspecified atrial fibrillation; Z79.899 Other long term (current) drug therapy; Z88.2 Allergy status to sulfonamides; Z88.8 Allergy status to other drugs, medicaments and biological substances
CPT/HCPCS: 36415; 80053; 83690; 85025; 93005; 93010; 99284-25; A9270

== ENCOUNTER 2021-05-22 11:06 | Day surgery (SDC) | payer OTHER ==
[~2021-05-22] VITALS: Ht 182.9 cm; Wt 86.8 kg
[~2021-05-22 11:06] MED LIST changes: +CIPR500 PO; +HYDROCODONE-AC1 EA10 PO; +KETO.5OPSO LEFTEYE; +METR500 PO; +ONDA4ODT MM; +PRED FORTE5 ML LEFTEYE
--- NOTE | 2021-05-22 11:57 | NUR ---
05/22/21 Cameron Santiago CALL LIGHT WITHIN REACH. PT HAS A GTUBE UPON ARRIVAL
== END 2021-05-22 13:48 | disposition home or self-care (01) ==
LOC: ORSCSDS 11:06
PROVIDERS: Ophthalmology
PROC: 08RK3JZ Replacement of Left Lens with Synthetic Substitute, Percutaneous Approach (ICD-10-PCS; principal; 2021-05-22 13:00)
DX: H25.12 Age-related nuclear cataract, left eye (principal); I48.91 Unspecified atrial fibrillation; I25.10 Atherosclerotic heart disease of native coronary artery without angina pectoris; F03.90 Unspecified dementia, unspecified severity, without behavioral disturbance, psychotic disturbance, mood disturbance, and anxiety; E11.9 Type 2 diabetes mellitus without complications; K21.9 Gastro-esophageal reflux disease without esophagitis; E78.5 Hyperlipidemia, unspecified; G47.33 Obstructive sleep apnea (adult) (pediatric); F43.10 Post-traumatic stress disorder, unspecified; F31.9 Bipolar disorder, unspecified; F20.9 Schizophrenia, unspecified; Z79.01 Long term (current) use of anticoagulants; Z79.899 Other long term (current) drug therapy; Z87.891 Personal history of nicotine dependence
CPT/HCPCS: J2001; J2250; J3010; J3301; J7040; V2632

== ENCOUNTER 2021-09-26 15:28 | Emergency (ER) | payer OTHER ==
[~2021-09-26] VITALS: Ht 182.9 cm; Wt 88.5 kg
[~2021-09-26 15:28] MED LIST changes: +DIVA500EC PO; +FLONASE ALLERG9.9 M2; +VISTARIL
[2021-09-26] MEDS ORDERED: HYDR1TAB94 PO (17:48)
== END 2021-09-26 17:59 | disposition home or self-care (01) ==
LOC: ER 15:28
DX: S80.11XA Contusion of right lower leg, initial encounter (principal); S90.31XA Contusion of right foot, initial encounter; G20 Parkinson's disease; I11.0 Hypertensive heart disease with heart failure; I50.9 Heart failure, unspecified; K21.9 Gastro-esophageal reflux disease without esophagitis; V89.0XXA Person injured in unspecified motor-vehicle accident, nontraffic, initial encounter; Z88.2 Allergy status to sulfonamides; Z79.01 Long term (current) use of anticoagulants; Z79.899 Other long term (current) drug therapy; Z79.52 Long term (current) use of systemic steroids; Z95.1 Presence of aortocoronary bypass graft
CPT/HCPCS: 73590; 99284-25; A9270

== ENCOUNTER 2021-11-13 11:42 | Day surgery (SDC) | payer OTHER ==
[~2021-11-13] VITALS: Ht 182.9 cm; Wt 93.0 kg
--- NOTE | 2021-11-13 14:46 | NUR ---
PT TAKEN TO CTA PER ANNE-MARIE JUSTICE TO DC HOME AFTER REVIEW, IV DC'D INTACT, NEW G TUBE IN PLACE, STABLE, PRESENT, IV DC'D INTACT, PT DC'D
== END 2021-11-13 14:45 | disposition home or self-care (01) ==
LOC: MHTC 11:42
DX: Z43.1 Encounter for attention to gastrostomy (principal); I48.91 Unspecified atrial fibrillation; I25.10 Atherosclerotic heart disease of native coronary artery without angina pectoris; E11.9 Type 2 diabetes mellitus without complications; E78.5 Hyperlipidemia, unspecified; I25.5 Ischemic cardiomyopathy; F03.90 Unspecified dementia, unspecified severity, without behavioral disturbance, psychotic disturbance, mood disturbance, and anxiety; Z95.1 Presence of aortocoronary bypass graft; Z87.891 Personal history of nicotine dependence; Z88.8 Allergy status to other drugs, medicaments and biological substances; Z88.2 Allergy status to sulfonamides; Z88.1 Allergy status to other antibiotic agents; Z79.01 Long term (current) use of anticoagulants; Z90.49 Acquired absence of other specified parts of digestive tract
CPT/HCPCS: 49450; 74177; 99152; 99153; C1769; J3010; Q9967

== ENCOUNTER → 2022-02-13 | Outpatient (CLI) | payer OTHER ==
[2022-02-13 17:51] LABS: BASOPHILS ABSOLUTE AUTO 0.07 K/mm3 (0.00-0.23); BASOPHILS PERCENT AUTO 1 % (0-2); EOSINOPHILS ABSOLUTE AUTO 0.33 K/mm3 (0.00-0.68); EOSINOPHILS PERCENT AUTO 2 % (0-6); Hematocrit 41.9 % (37.0-53.0); Hemoglobin 13.7 g/dL (13.5-17.5); IMMATURE GRAN ABSOLUTE AUTO 0.06 K/mm3 (0.00-0.10); IMMATURE GRAN PERCENT AUTO 0 % (0-1); LYMPHOCYTES ABSOLUTE AUTO 0.71 K/mm3 (0.84-5.20); LYMPHOCYTES PERCENT AUTO 5 % (21-46); MONOCYTES ABSOLUTE AUTO 1.33 K/mm3 (0.16-1.47); MONOCYTES PERCENT AUTO 9 % (4-13); Mean Corpuscular HGB 31.1 pg (26.0-34.0); Mean Corpuscular HGB Conc 32.7 g/dL (31.5-36.5); Mean Corpuscular Volume 95 fL (80-100); Mean Platelet Volume 9.4 fL (9.1-12.4); NEUTROPHILS ABSOLUTE AUTO 11.78 K/mm3 (1.96-9.15); NEUTROPHILS PERCENT AUTO 83 % (41-73); Platelet Count 206 K/mm3 (150-400); RDW Coefficient Variation 14.5 % (11.7-14.2); RDW Standard Deviation 50.5 fL (35.1-46.3); White Blood Cell Count 14.28 K/mm3 (4.00-11.30)
[2022-02-13 17:59] LABS: Albumin, Blood 3.8 g/dL (3.4-5.0); Albumin/Globulin Ratio 1.1 (0.8-1.8); Bilirubin, Total 0.8 mg/dL (0.1-1.0); Bun/Creatinine Ratio 11.8 (12.0-20.0); Calcium, Blood 8.7 mg/dL (8.5-10.1); Creatinine, Blood 0.85 mg/dL (0.60-1.20); Globulin, Blood 3.4 g/dL (2.2-4.0); Potassium, Blood 4.9 mmol/L (3.5-5.5); Total Protein, Blood 7.2 g/dL (6.4-8.2)
== END | disposition home or self-care (01) ==
LOC: LAB SHORT 17:45
PROVIDERS: Physician Assistant
DX: R06.02 Shortness of breath (principal)
CPT/HCPCS: 80053; 83880; 84484; 85025

== ENCOUNTER 2022-02-24 14:25 | Emergency (ER) | payer OTHER ==
[~2022-02-24] VITALS: Ht 182.9 cm; Wt 96.2 kg
[2022-02-24 15:08] LABS: BASOPHILS ABSOLUTE AUTO 0.05 K/mm3 (0.00-0.23); BASOPHILS PERCENT AUTO 1 % (0-2); EOSINOPHILS ABSOLUTE AUTO 0.51 K/mm3 (0.00-0.68); EOSINOPHILS PERCENT AUTO 5 % (0-6); Hematocrit 45.3 % (37.0-53.0); Hemoglobin 14.8 g/dL (13.5-17.5); IMMATURE GRAN ABSOLUTE AUTO 0.04 K/mm3 (0.00-0.10); IMMATURE GRAN PERCENT AUTO 0 % (0-1); LYMPHOCYTES ABSOLUTE AUTO 1.27 K/mm3 (0.84-5.20); LYMPHOCYTES PERCENT AUTO 14 % (21-46); MONOCYTES ABSOLUTE AUTO 0.88 K/mm3 (0.16-1.47); MONOCYTES PERCENT AUTO 9 % (4-13); Mean Corpuscular HGB 30.5 pg (26.0-34.0); Mean Corpuscular HGB Conc 32.7 g/dL (31.5-36.5); Mean Corpuscular Volume 93 fL (80-100); Mean Platelet Volume 9.5 fL (9.1-12.4); NEUTROPHILS ABSOLUTE AUTO 6.63 K/mm3 (1.96-9.15); NEUTROPHILS PERCENT AUTO 71 % (41-73); Platelet Count 271 K/mm3 (150-400); RDW Coefficient Variation 14.2 % (11.7-14.2); RDW Standard Deviation 49.5 fL (35.1-46.3); Red Blood Cell Count 4.85 M/mm3 (4.30-5.90); White Blood Cell Count 9.38 K/mm3 (4.00-11.30)
[2022-02-24 15:22] LABS: Albumin, Blood 3.6 g/dL (3.4-5.0); Bilirubin, Total 0.5 mg/dL (0.1-1.0); Bun/Creatinine Ratio 9.4 (12.0-20.0); Calcium, Blood 8.6 mg/dL (8.5-10.1); Creatinine, Blood 1.06 mg/dL (0.60-1.20); Globulin, Blood 3.6 g/dL (2.2-4.0); Potassium, Blood 5.1 mmol/L (3.5-5.5); Total Protein, Blood 7.2 g/dL (6.4-8.2)
[2022-02-24] MEDS ORDERED: AMIODARONE HCL400 M2 PO (19:48)
[2022-02-24] MEDS ORDERED: DONEPEZIL HCL10 M1 PO (19:48)
== END 2022-02-24 20:26 | disposition home or self-care (01) ==
LOC: ER 14:25
PROVIDERS: Physician Assistant
DX: I11.0 Hypertensive heart disease with heart failure (principal); I50.20 Unspecified systolic (congestive) heart failure; I48.91 Unspecified atrial fibrillation; I25.10 Atherosclerotic heart disease of native coronary artery without angina pectoris; G20 Parkinson's disease; Z88.8 Allergy status to other drugs, medicaments and biological substances; Z88.1 Allergy status to other antibiotic agents; Z88.2 Allergy status to sulfonamides; Z79.899 Other long term (current) drug therapy; Z79.01 Long term (current) use of anticoagulants
CPT/HCPCS: 36415; 71046; 80053; 83880; 84484; 85025; 93005; 93010; J1940

== ENCOUNTER 2022-03-01 06:14 | Day surgery (SDC) | payer OTHER ==
[~2022-03-01 06:14] MED LIST changes: +HYDHCL25 PO
--- NOTE | 2022-03-01 07:52 | NUR ---
PT AND VERBALIZED UNDERSTANDING OF WRITTEN AND VERBAL D/C INST. IV REMOVED. SR 70-80 BPM ON D/C. PT TAKEN OUT OF THE HRT CENTER VIA W/C.
== END 2022-03-01 10:00 | disposition home or self-care (01) ==
LOC: MHTC 06:14
DX: I48.91 Unspecified atrial fibrillation (principal); I44.0 Atrioventricular block, first degree; Z79.01 Long term (current) use of anticoagulants; Z79.899 Other long term (current) drug therapy
CPT/HCPCS: 92960; 93005; 93010; J2704; J7030

== ENCOUNTER → 2022-03-13 | Outpatient (CLI) | payer OTHER | LOC: LAB 09:00 → LAB SHORT 09:00 | DX: K52.9 Noninfective gastroenteritis and colitis, unspecified (principal) | CPT/HCPCS: 82653 ==

== ENCOUNTER → 2022-04-04 | Outpatient (CLI) | payer OTHER ==
[~2022-04-04] MED LIST changes: +CREON DR 12,001 EACH PO; +DONEPEZIL HCL10 MG PO; +JARDIANCE10 MG PO
[2022-04-04 12:06] LABS: BASOPHILS ABSOLUTE AUTO 0.05 K/mm3 (0.00-0.23); BASOPHILS PERCENT AUTO 1 % (0-2); EOSINOPHILS ABSOLUTE AUTO 0.39 K/mm3 (0.00-0.68); EOSINOPHILS PERCENT AUTO 6 % (0-6); Hematocrit 45.9 % (37.0-53.0); Hemoglobin 15.5 g/dL (13.5-17.5); IMMATURE GRAN ABSOLUTE AUTO 0.03 K/mm3 (0.00-0.10); IMMATURE GRAN PERCENT AUTO 1 % (0-1); LYMPHOCYTES ABSOLUTE AUTO 1.03 K/mm3 (0.84-5.20); LYMPHOCYTES PERCENT AUTO 16 % (21-46); MONOCYTES ABSOLUTE AUTO 0.59 K/mm3 (0.16-1.47); MONOCYTES PERCENT AUTO 9 % (4-13); Mean Corpuscular HGB 30.9 pg (26.0-34.0); Mean Corpuscular HGB Conc 33.8 g/dL (31.5-36.5); Mean Corpuscular Volume 92 fL (80-100); Mean Platelet Volume 9.1 fL (9.1-12.4); NEUTROPHILS ABSOLUTE AUTO 4.37 K/mm3 (1.96-9.15); NEUTROPHILS PERCENT AUTO 68 % (41-73); Platelet Count 221 K/mm3 (150-400); RDW Coefficient Variation 14.6 % (11.7-14.2); RDW Standard Deviation 48.9 fL (35.1-46.3); Red Blood Cell Count 5.01 M/mm3 (4.30-5.90); White Blood Cell Count 6.46 K/mm3 (4.00-11.30)
[2022-04-04 12:21] LABS: Albumin, Blood 3.7 g/dL (3.4-5.0); Bilirubin, Total 0.7 mg/dL (0.1-1.0); Bun/Creatinine Ratio 6.8 (12.0-20.0); Calcium, Blood 9.2 mg/dL (8.5-10.1); Creatinine, Blood 0.74 mg/dL (0.60-1.20); Globulin, Blood 3.6 g/dL (2.2-4.0); Potassium, Blood 4.3 mmol/L (3.5-5.5); Total Protein, Blood 7.3 g/dL (6.4-8.2)
== END | disposition home or self-care (01) ==
LOC: LAB SHORT 12:01 → LAB 12:01
PROVIDERS: Chiropractor
DX: R33.9 Retention of urine, unspecified (principal)
CPT/HCPCS: 80053; 85025

== ENCOUNTER 2022-04-24 23:49 | Emergency (ER) | payer OTHER ==
[~2022-04-24] VITALS: Ht 182.9 cm; Wt 92.5 kg
== END 2022-04-25 01:21 | disposition home or self-care (01) ==
LOC: ER 23:49
DX: Z46.6 Encounter for fitting and adjustment of urinary device (principal); G20 Parkinson's disease; Z95.1 Presence of aortocoronary bypass graft; Z87.891 Personal history of nicotine dependence
CPT/HCPCS: 99282

== ENCOUNTER 2022-07-11 06:36 | Day surgery (SDC) | payer OTHER ==
[~2022-07-11] VITALS: Ht 182.9 cm; Wt 93.0 kg
[2022-07-11 08:57] VITALS: BP 127/76
--- NOTE | 2022-07-11 09:19 | NUR ---
PT BACK FROM PROCEDURE. VSS. OKAY TO DISCHARGE HOME PER DR. EGAN. PT. IV REMOVED, CATHETER TIP INTACT. DISCHARGE INSTRUCTIONS REVIEWED. PT SITE WNL, NO OOZING, DRESSING CDI. ADDITIONAL DRESSING SUPPLIES SENT WITH PATIENT. EDUCATED ON SITE CARE, PT VERBALIZED UNDERSTANDING. ABLE TO DRESS SELF FOR DISCHARGE, PT TO TAKE PT HOME.
== END 2022-07-11 09:15 | disposition home or self-care (01) ==
LOC: MHTC 06:36
DX: Z43.1 Encounter for attention to gastrostomy (principal); I25.10 Atherosclerotic heart disease of native coronary artery without angina pectoris; E11.9 Type 2 diabetes mellitus without complications; K21.9 Gastro-esophageal reflux disease without esophagitis; E78.5 Hyperlipidemia, unspecified; G47.33 Obstructive sleep apnea (adult) (pediatric); Z95.1 Presence of aortocoronary bypass graft; Z87.891 Personal history of nicotine dependence; Z88.1 Allergy status to other antibiotic agents; Z88.2 Allergy status to sulfonamides; Z88.8 Allergy status to other drugs, medicaments and biological substances; Z79.899 Other long term (current) drug therapy
CPT/HCPCS: 76000

== ENCOUNTER 2022-07-14 12:33 | Emergency (ER) | payer OTHER ==
[~2022-07-14] VITALS: Ht 182.9 cm; Wt 94.3 kg
[2022-07-14 13:22] LABS: BASOPHILS ABSOLUTE AUTO 0.05 K/mm3 (0.00-0.23); BASOPHILS PERCENT AUTO 0 % (0-2); EOSINOPHILS ABSOLUTE AUTO 0.37 K/mm3 (0.00-0.68); EOSINOPHILS PERCENT AUTO 3 % (0-6); Hematocrit 43.4 % (37.0-53.0); Hemoglobin 14.1 g/dL (13.5-17.5); IMMATURE GRAN ABSOLUTE AUTO 0.05 K/mm3 (0.00-0.10); IMMATURE GRAN PERCENT AUTO 0 % (0-1); LYMPHOCYTES ABSOLUTE AUTO 0.95 K/mm3 (0.84-5.20); LYMPHOCYTES PERCENT AUTO 8 % (21-46); MONOCYTES ABSOLUTE AUTO 1.29 K/mm3 (0.16-1.47); MONOCYTES PERCENT AUTO 10 % (4-13); Mean Corpuscular HGB 29.4 pg (26.0-34.0); Mean Corpuscular HGB Conc 32.5 g/dL (31.5-36.5); Mean Corpuscular Volume 91 fL (80-100); Mean Platelet Volume 9.2 fL (9.1-12.4); NEUTROPHILS ABSOLUTE AUTO 9.71 K/mm3 (1.96-9.15); NEUTROPHILS PERCENT AUTO 78 % (41-73); Platelet Count 256 K/mm3 (150-400); RDW Coefficient Variation 13.4 % (11.7-14.2); RDW Standard Deviation 45.2 fL (35.1-46.3); Red Blood Cell Count 4.79 M/mm3 (4.30-5.90); White Blood Cell Count 12.42 K/mm3 (4.00-11.30)
[2022-07-14 13:51] LABS: Albumin, Blood 3.3 g/dL (3.4-5.0); Albumin/Globulin Ratio 0.9 (0.8-1.8); Bilirubin, Total 0.7 mg/dL (0.1-1.0); Bun/Creatinine Ratio 8.4 (12.0-20.0); Calcium, Blood 8.5 mg/dL (8.5-10.1); Creatinine, Blood 0.83 mg/dL (0.60-1.20); Globulin, Blood 3.6 g/dL (2.2-4.0); Potassium, Blood 4.2 mmol/L (3.5-5.5); Total Protein, Blood 6.9 g/dL (6.4-8.2)
[2022-07-14 15:00] VITALS: BP 118/84
== END 2022-07-14 16:31 | disposition home or self-care (01) ==
LOC: ER 12:33
PROVIDERS: Student in an Organized Health Care Education/Training Program
DX: M54.50 Low back pain, unspecified (principal); G20 Parkinson's disease; Z88.2 Allergy status to sulfonamides; Z88.1 Allergy status to other antibiotic agents; Z88.8 Allergy status to other drugs, medicaments and biological substances; Z87.891 Personal history of nicotine dependence
CPT/HCPCS: 71046; 74177; 80053; 83690; 84484; 85025; J1170; J2405; Q9967

== ENCOUNTER → 2022-08-12 | Outpatient (CLI) | payer OTHER | LOC: LAB SHORT 15:13 → LAB 15:13 | DX: R31.9 Hematuria, unspecified (principal) | CPT/HCPCS: 87077; 87086; 87186 ==

== ENCOUNTER → 2022-08-17 | Outpatient (CLI) | payer OTHER | END | disposition home or self-care (01) | LOC: LAB 14:09 → LAB SHORT 14:09 | DX: R31.9 Hematuria, unspecified (principal) | CPT/HCPCS: 87077; 87086; 87186 ==

== ENCOUNTER 2022-11-24 20:48 | Emergency (ER) | payer OTHER ==
[~2022-11-24] VITALS: Ht 182.9 cm; Wt 88.5 kg
[~2022-11-24 20:48] MED LIST changes: +CARVEDILOL6.25 MG PO; +CLIN150 PO; +Methocarbamol500 MG PO
[2022-11-24 21:13] LABS: BASOPHILS ABSOLUTE AUTO 0.05 K/mm3 (0.00-0.23); BASOPHILS PERCENT AUTO 1 % (0-2); EOSINOPHILS ABSOLUTE AUTO 0.63 K/mm3 (0.00-0.68); EOSINOPHILS PERCENT AUTO 7 % (0-6); Hematocrit 44.2 % (37.0-53.0); Hemoglobin 14.9 g/dL (13.5-17.5); IMMATURE GRAN ABSOLUTE AUTO 0.03 K/mm3 (0.00-0.10); IMMATURE GRAN PERCENT AUTO 0 % (0-1); LYMPHOCYTES ABSOLUTE AUTO 1.39 K/mm3 (0.84-5.20); LYMPHOCYTES PERCENT AUTO 15 % (21-46); MONOCYTES ABSOLUTE AUTO 0.64 K/mm3 (0.16-1.47); MONOCYTES PERCENT AUTO 7 % (4-13); Mean Corpuscular HGB 29.2 pg (26.0-34.0); Mean Corpuscular HGB Conc 33.7 g/dL (31.5-36.5); Mean Corpuscular Volume 87 fL (80-100); Mean Platelet Volume 9.4 fL (9.1-12.4); NEUTROPHILS ABSOLUTE AUTO 6.56 K/mm3 (1.96-9.15); NEUTROPHILS PERCENT AUTO 71 % (41-73); Platelet Count 274 K/mm3 (150-400); RDW Coefficient Variation 14.9 % (11.7-14.2); RDW Standard Deviation 47.8 fL (35.1-46.3)
[2022-11-24 21:32] LABS: Albumin, Blood 3.5 g/dL (3.4-5.0); Albumin/Globulin Ratio 0.9 (0.8-1.8); Bilirubin, Total 0.6 mg/dL (0.1-1.0); Bun/Creatinine Ratio 7.8 (12.0-20.0); Calcium, Blood 8.7 mg/dL (8.5-10.1); Creatinine, Blood 1.02 mg/dL (0.60-1.20); Globulin, Blood 3.8 g/dL (2.2-4.0); Total Protein, Blood 7.3 g/dL (6.4-8.2)
[2022-11-24 23:56] LABS: Influenza A, PCR NEGATIVE (NEGATIVE); Influenza B, PCR NEGATIVE (NEGATIVE); Resp Syncytial Virus, PCR NEGATIVE (NEGATIVE)
[2022-11-25 00:02] LABS: SARS-Cov-2 (COVID-19) PCR, MMC POSITIVE (NEGATIVE)
[2022-11-25 00:30] VITALS: BP 131/91
[2022-11-25] MEDS ORDERED: ONDA4ODT MM (02:15)
== END 2022-11-25 02:25 | disposition home or self-care (01) ==
LOC: ER 20:48
PROVIDERS: Physician Assistant; Student in an Organized Health Care Education/Training Program
DX: U07.1 COVID-19 (principal); R11.2 Nausea with vomiting, unspecified; R10.10 Upper abdominal pain, unspecified; Z88.8 Allergy status to other drugs, medicaments and biological substances; Z88.2 Allergy status to sulfonamides; Z88.1 Allergy status to other antibiotic agents; Z79.899 Other long term (current) drug therapy; G20.C Parkinsonism, unspecified; I48.91 Unspecified atrial fibrillation; I50.9 Heart failure, unspecified; I11.0 Hypertensive heart disease with heart failure; K21.9 Gastro-esophageal reflux disease without esophagitis; Z87.891 Personal history of nicotine dependence
CPT/HCPCS: 0241U; 74177; 80053; 83690; 85025; 93005; 93010; 96361; 96374-59; 96375; 96375-59; 96376; 96376-59; 99285-25; A9270; J1885; J2405; J3010; J7030; Q9967

== ENCOUNTER 2022-11-28 20:08 | Emergency (ER) | payer OTHER ==
[~2022-11-28] VITALS: Ht 182.9 cm; Wt 83.9 kg
[2022-11-28 20:11] VITALS: BP 138/101
[2022-11-28] MEDS ORDERED: CEPH500 PO (21:00)
== END 2022-11-28 21:34 | disposition home or self-care (01) ==
LOC: ER 20:08
DX: T83.84XA Pain due to genitourinary prosthetic devices, implants and grafts, initial encounter (principal); Z88.8 Allergy status to other drugs, medicaments and biological substances; Z88.2 Allergy status to sulfonamides; Z88.1 Allergy status to other antibiotic agents; Z79.899 Other long term (current) drug therapy; G20.C Parkinsonism, unspecified; I48.91 Unspecified atrial fibrillation; I50.9 Heart failure, unspecified; I11.0 Hypertensive heart disease with heart failure; K21.9 Gastro-esophageal reflux disease without esophagitis; Z87.891 Personal history of nicotine dependence
CPT/HCPCS: 99284; A9270

== ENCOUNTER 2023-01-14 12:25 | Day surgery (SDC) | payer OTHER ==
[~2023-01-14] VITALS: Ht 182.9 cm; Wt 87.0 kg
[2023-01-14] VITALS (13 sets, daily range): BP systolic 116–139; BP diastolic 68–94
--- NOTE | 2023-01-14 13:48 | NUR ---
1346- TIME OUT DONE 1347- PT MEDICATED BY BRAIN 1348- SYNCRONIZED CARDIOVERSION DONE WITH 200 J X1, PT RETURNED TO NORMAL SINUS ON MONITOR.
--- NOTE | 2023-01-14 14:19 | NUR ---
PT AND SPOUSE VERVALIZE D/C INSTRUCTIONS. NORMAL SINUS ON MONITOR. EKG DONE. PT ALERT AND ORIENTED. SITTING UP SIPPING ON WATER.
== END 2023-01-14 22:57 | disposition home or self-care (01) ==
LOC: MHTC 12:25
DX: I48.19 Other persistent atrial fibrillation (principal); Z88.2 Allergy status to sulfonamides; Z88.1 Allergy status to other antibiotic agents; Z88.8 Allergy status to other drugs, medicaments and biological substances; I25.10 Atherosclerotic heart disease of native coronary artery without angina pectoris; Z95.1 Presence of aortocoronary bypass graft; I25.2 Old myocardial infarction; E11.9 Type 2 diabetes mellitus without complications; I10 Essential (primary) hypertension; E78.5 Hyperlipidemia, unspecified; J44.9 Chronic obstructive pulmonary disease, unspecified
CPT/HCPCS: 92960; 93005; 93010; J2001; J2704; J7030

== ENCOUNTER 2023-02-04 00:45 | Observation (INO) | payer OTHER ==
[2023-02-04] VITALS (25 sets, daily range): BP systolic 119–162; BP diastolic 68–100
[~2023-02-04] VITALS: Ht 182.9 cm; Wt 90.2 kg
[2023-02-04 02:38] LABS: Source, Urine Voided
[2023-02-04 02:40] LABS: BASOPHILS ABSOLUTE AUTO 0.02 K/mm3 (0.00-0.23); BASOPHILS PERCENT AUTO 0 % (0-2); EOSINOPHILS ABSOLUTE AUTO 0.16 K/mm3 (0.00-0.68); EOSINOPHILS PERCENT AUTO 3 % (0-6); Hematocrit 36.9 % (37.0-53.0); Hemoglobin 12.1 g/dL (13.5-17.5); IMMATURE GRAN ABSOLUTE AUTO 0.02 K/mm3 (0.00-0.10); IMMATURE GRAN PERCENT AUTO 0 % (0-1); LYMPHOCYTES PERCENT AUTO 15 % (21-46); MONOCYTES ABSOLUTE AUTO 0.52 K/mm3 (0.16-1.47); MONOCYTES PERCENT AUTO 9 % (4-13); Mean Corpuscular HGB 29.3 pg (26.0-34.0); Mean Corpuscular HGB Conc 32.8 g/dL (31.5-36.5); Mean Corpuscular Volume 89 fL (80-100); NEUTROPHILS ABSOLUTE AUTO 4.42 K/mm3 (1.96-9.15); NEUTROPHILS PERCENT AUTO 73 % (41-73); Platelet Count 222 K/mm3 (150-400); RDW Coefficient Variation 14.6 % (11.7-14.2); RDW Standard Deviation 47.4 fL (35.1-46.3); Red Blood Cell Count 4.13 M/mm3 (4.30-5.90); White Blood Cell Count 6.04 K/mm3 (4.00-11.30)
[2023-02-04 03:00] LABS: Bilirubin, Urine Neg (Neg); Blood, Urine Neg (Neg); Glucose Qualitative, Urine Neg (Neg); Ketones, Urine Neg (Neg); Leukocyte Esterase, Urine Neg (Neg); Nitrite, Urine Neg (Neg); Protein, Urine Neg (Neg); Urobilinogen, Urine NORM (Normal)
[2023-02-04 03:18] LABS: Albumin, Blood 2.7 g/dL (3.4-5.0); Bilirubin, Total 0.4 mg/dL (0.1-1.0); Calcium, Blood 8.1 mg/dL (8.5-10.1); Creatinine, Blood 0.88 mg/dL (0.60-1.20); Globulin, Blood 2.8 g/dL (2.2-4.0); Total Protein, Blood 5.5 g/dL (6.4-8.2)
[2023-02-04 03:20] LABS: Appearance, Urine Clear (Clear); Color, Urine Pale Yellow (P-Yellow)
[2023-02-04 04:21] LABS: Influenza A, PCR NEGATIVE (NEGATIVE); Influenza B, PCR NEGATIVE (NEGATIVE); Resp Syncytial Virus, PCR NEGATIVE (NEGATIVE); SARS-Cov-2 (COVID-19) PCR, MMC NEGATIVE (NEGATIVE)
--- NOTE | 2023-02-04 06:31 | NUR ---
ARRIVAL TO UNIT PT ARRIVED VIA W/C TO UNIT. ABLE TO TRANSFER TO BED INDEPENDENTLY. A&0 X4, PLEASENT AND ABLE TO ANSWER ALL QUESTIONS. PT HAS TELE ON. PAIN CONTROLLED PER EMAR. DENIES N/V AT THIS TIME. FLUIDS RUNNING. NPO SINCE YESTERDAY. VSS. NO OTHER CONCERNS AT THIS TIME. EDUCATED ON HOW TO USE CALL LIGHT. CALL LIGHT WITHIN REACH.
--- NOTE | 2023-02-04 11:00 | NUR ---
assumed care of patient just prior to back to OR. Per prior RN Suzanne Dill, lungs slightly course, clip prep and clorehedine wipes done. PAs in place. patient has seen both anethesia and surgeon. awaiting circultating rn to transfer to OR
--- NOTE | 2023-02-04 12:48 | NUR ---
BRANCH LOGISTICS SUPERVISOR REPORTS STS PT'S BLADDER FULL, TURP PROCEDURE LAST WEEK. INSTRUCTED TO AVOID BLADDER CATH D/T. PT AROUSABLE, ENCOURAGED TO VOID. PT STS UNABLE TO URINATE DESPITE THE URGE TO GO. BLADDER SCANNED, REPORTS 999+ ML. SURGEON NOTIFIED. CONTINUING TO ENCOURAGE PT TO ATTEMPT TO VOID, REPOSITIONED, SMALL SIP OF WATER PROVIDED PER PT'S REQUEST, COOL WATER RAN OVER PT'S HANDS IN ATTEMPTS TO AID ABILITY TO VOID. PT ABLE TO PRODUCE APPROX 5ML OF URINE EACH ATTEMPT, WITH A TOTAL OF APPROX 10ML TOTAL.
--- NOTE | 2023-02-04 13:04 | NUR ---
1256 PT ABLE TO VOID SMALL AMOUT, URINAL EMPTIED FOR A PACU TOTAL OF 50ML. 1259 PT HAD ONE UNMEASURED VOID IN GURNEY, OUTSIDE OF URINAL CATCH. BLADDER RESCANNED, REPORTING 999+ ML. FRESH BEDDING PLACED, CONTINUING TO ENCOURAGE PT TO VOID, EDUCATION PROVIDED IMPORTANCE OF URINATING. PT CONTINUES TO STS HE "CAN'T GO, I'M TRYING." PT CALM & COOPERATIVE THROUGHOUT PACU STAY. RESTING WITH EYED CLOSED, OPENS EYES & ANSWERS APPROPRIATELY WHEN ADDRESSED. NO CATHETER PER MD, WAITING ON FURTHER ORDERS.
--- NOTE | 2023-02-04 13:10 | NUR ---
1310 ADDITIONAL 25ML URINE OUT
--- NOTE | 2023-02-04 13:16 | NUR ---
1315 SURGEON CONSULTED AGAIN REGARDING REMAINING BLADDER VOLUME, APPROX 100ML OUT AT THIS TIME. SURGEON STS LONG PT IS ABLE TO VOID ANY AMOUNT, OKAY TO PROCEED WITH TRANSFER BACK TO FLOOR. SURGEON ORDERS NO BLADDER CATHETER, PT STS HE WOULD OBJECT TO CATHETER IF OFFERED. PT CALM, COOPERATIVE, REQUESTING TO SEE SPOUSE.
[2023-02-04 15:24] LABS: BASOPHILS ABSOLUTE AUTO 0.02 K/mm3 (0.00-0.23); BASOPHILS PERCENT AUTO 0 % (0-2); EOSINOPHILS ABSOLUTE AUTO 0.05 K/mm3 (0.00-0.68); EOSINOPHILS PERCENT AUTO 1 % (0-6); Hematocrit 42.3 % (37.0-53.0); Hemoglobin 13.5 g/dL (13.5-17.5); IMMATURE GRAN ABSOLUTE AUTO 0.02 K/mm3 (0.00-0.10); IMMATURE GRAN PERCENT AUTO 0 % (0-1); LYMPHOCYTES ABSOLUTE AUTO 0.37 K/mm3 (0.84-5.20); LYMPHOCYTES PERCENT AUTO 5 % (21-46); MONOCYTES ABSOLUTE AUTO 0.12 K/mm3 (0.16-1.47); MONOCYTES PERCENT AUTO 2 % (4-13); Mean Corpuscular HGB 29.1 pg (26.0-34.0); Mean Corpuscular HGB Conc 31.9 g/dL (31.5-36.5); Mean Corpuscular Volume 91 fL (80-100); Mean Platelet Volume 10.3 fL (9.1-12.4); NEUTROPHILS ABSOLUTE AUTO 7.26 K/mm3 (1.96-9.15); NEUTROPHILS PERCENT AUTO 93 % (41-73); Platelet Count 224 K/mm3 (150-400); RDW Coefficient Variation 14.7 % (11.7-14.2); RDW Standard Deviation 49.5 fL (35.1-46.3); Red Blood Cell Count 4.64 M/mm3 (4.30-5.90); White Blood Cell Count 7.84 K/mm3 (4.00-11.30)
[2023-02-04 15:38] LABS: Albumin/Globulin Ratio 0.9 (0.8-1.8); Bilirubin, Total 0.5 mg/dL (0.1-1.0); Bun/Creatinine Ratio 6.7 (12.0-20.0); Calcium, Blood 8.3 mg/dL (8.5-10.1); Creatinine, Blood 0.75 mg/dL (0.60-1.20); Globulin, Blood 3.3 g/dL (2.2-4.0); Potassium, Blood 4.1 mmol/L (3.5-5.5); Total Protein, Blood 6.3 g/dL (6.4-8.2)
--- NOTE | 2023-02-04 16:53 | NUR ---
Pt. is awake in bed and welcomes my visit. Spouse is present. Facilitate a lengthey life review and considered matters of jose and life. Pt. displayed evidence of engagement and awareness. Pt. also displayed some frustration with his decling health. Listen with empathy and interest. Consider matters of hope and purpose. Pt. verbalized that he felt his life had more purpose. Pryaed with Pt. Pt. and spouse verbalized gratitude for the spiritual care visit and welcomed this wallpaper embosser helper to return.
--- NOTE | 2023-02-04 19:38 | NUR ---
SHIFT SUMMARY S/P LAP APPY, LAP SITES CDI, A&OX4, VSS/RA/TELE NSR 64 BPM, SONAL PO REG DIET, VOIDING/URINAL, AMB SBA TO [facility], PAIN MANAGED. REPORT TO ELIZABETH DIAS.
[2023-02-05 04:38] VITALS: BP 142/86
[2023-02-05 05:02] LABS: Hematocrit 37.9 % (37.0-53.0); Hemoglobin 12.5 g/dL (13.5-17.5); Mean Corpuscular HGB 29.2 pg (26.0-34.0); Mean Corpuscular Volume 89 fL (80-100); Mean Platelet Volume 10.1 fL (9.1-12.4); Platelet Count 232 K/mm3 (150-400); RDW Coefficient Variation 14.4 % (11.7-14.2); RDW Standard Deviation 46.5 fL (35.1-46.3); Red Blood Cell Count 4.28 M/mm3 (4.30-5.90); White Blood Cell Count 11.78 K/mm3 (4.00-11.30)
--- NOTE | 2023-02-05 05:03 | NUR ---
SHIFT SUMMARY POD1 LAP APPY. LAP SITES ARE C/D/I. VSS, TELE READS NSR 63 W/ 1ST DEGREE AND BBB. PT SLEPT NONE T/O THE NIGHT. REPORTS DIFFICULTY SLEEPING W/O HOME MEDS. KLONOPIN ORDERED TO TAKE FOR THE NIGHT, MED REC COMPLETE. PT TOLLERATING PO INTAKE T/O THE NIGHT W/O N/V. AMBULATING W/SBA. VOIDING W/O DIFFICULTY. DENIES PASSING FLATTUS OR STOOL. PT ENCOURAGED TO INCREASE PO FLUIDS AND TO AMBULATE TO AIDE IN PERISTALSIS. C/O MID ABD PAIN T/O THE NIGHT, RATES PAIN 8/10 CONSISTANTLY. MEDICATED PER EMAR, K PAD GIVEN. NO ACUTE EVENTS NOTED T/O THE NIGHT.
[2023-02-05 05:34] LABS: Albumin, Blood 2.6 g/dL (3.4-5.0); Albumin/Globulin Ratio 0.9 (0.8-1.8); Bilirubin, Total 0.5 mg/dL (0.1-1.0); Bun/Creatinine Ratio 6.3 (12.0-20.0); Calcium, Blood 8.4 mg/dL (8.5-10.1); Creatinine, Blood 0.64 mg/dL (0.60-1.20); Globulin, Blood 2.9 g/dL (2.2-4.0); Potassium, Blood 4.3 mmol/L (3.5-5.5); Total Protein, Blood 5.5 g/dL (6.4-8.2)
[2023-02-05 07:11] VITALS: BP 127/86
[2023-02-05] MEDS ORDERED: MELA3 PO (10:57)
[2023-02-05] MEDS ORDERED: QUETIAPINE FUM400 M2 PO (11:00)
[2023-02-05] MEDS ORDERED: AMIODARONE HCL200 M1 (11:01)
[2023-02-05] MEDS ORDERED: PRED20 PO (11:02)
[2023-02-05] MEDS ORDERED: ELIQUIS5 M2 PO (11:29)
[2023-02-05] MEDS ORDERED: POLYETHYLENE G500 G1 PO (11:31)
[2023-02-05] MEDS ORDERED: AMOCLA875 PO (11:31)
[2023-02-05] MEDS ORDERED: Percocet 5-3251 EACH PO (11:32)
--- NOTE | 2023-02-05 12:31 | NUR ---
DISCHARGE SUMMARY PT A&OX4, VSS/RA, SONAL PO, VOIDING, AMB INDEPENDENTLY TO BRP/HALLWAY AND UP TO CHAIR, PAIN MANAGED, IV DC'D. POD1 LAP APPY, ABD SITES CDI MARIELLA. DC INS PROVIDED. PT AND REP UNDERSTANDING THOSE INSTRUCTIONS INCLUDING FU APPTS WITH PCP, UROLOGY AND SURGEON, MEDS AT [facility] INCLUDING AUGMENTIN, RESTART ELIQUIS 02/07, OXY SCRIPT GIVEN TO PT, STOOL SOFTENERS/MIRALAX, OK TO SHOWER/DO NOT REMOVE WOUND GLUE. LEFT FLOOR VIA WC WITH CASING MATERIAL WEIGHER TO GO HOME WITH WITH ALL PERSONAL POSSESSIONS INCLUDING DC PACKET AND 1 NARC SCRIPT.
== END 2023-02-05 13:13 | disposition home or self-care (01) ==
LOC: ER 00:45 → SURS 00:46 → ER 05:02 → SURS 05:02
PROVIDERS: Internal Medicine; Student in an Organized Health Care Education/Training Program; Surgery; ADMIT Internal Medicine
PROC: 0DTJ4ZZ Resection of Appendix, Percutaneous Endoscopic Approach (ICD-10-PCS; principal; 2023-02-04 11:00)
DX: K35.80 Unspecified acute appendicitis (principal); K59.00 Constipation, unspecified; K52.9 Noninfective gastroenteritis and colitis, unspecified; N40.0 Benign prostatic hyperplasia without lower urinary tract symptoms; I25.10 Atherosclerotic heart disease of native coronary artery without angina pectoris; Z95.1 Presence of aortocoronary bypass graft; F25.9 Schizoaffective disorder, unspecified; F03.90 Unspecified dementia, unspecified severity, without behavioral disturbance, psychotic disturbance, mood disturbance, and anxiety; J44.9 Chronic obstructive pulmonary disease, unspecified; I48.91 Unspecified atrial fibrillation; Z79.01 Long term (current) use of anticoagulants; Z20.822 Contact with and (suspected) exposure to COVID-19
CPT/HCPCS: 0241U; 36415; 74177; 80053; 81003; 83690; 83880; 85025; 85027; 93005; 93010; 96361; 96365; 96375; 99285-25; A9270; J0295; J1100; J1885; J2405; J2543; J2704; J2710; J3010; J7030; J7120; Q9967

== ENCOUNTER 2023-03-21 09:17 | Day surgery (SDC) | payer MEDICARE ==
[~2023-03-21] VITALS: Ht 182.9 cm; Wt 86.3 kg
[~2023-03-21 09:17] MED LIST changes: +AMIODARONE HCL200 M1; +AMOCLA875 PO; +ELIQUIS5 M2 PO; -HYDHCL25 PO; +Hydroxyzine HCl50 MG PO; +MELA3 PO; +PANT20 PO; +POLYETHYLENE G500 G1 PO; +QUETIAPINE FUM400 M2 PO; +VOLTAREN ARTHRI20 GM TOP
[2023-03-21] MEDS ORDERED: Lactated Ringer's 1,000 ML IV ONE ×2 (10:25→14:19)
[2023-03-21] MEDS ORDERED: propofoL 20 ML IV ONE (11:49)
[2023-03-21] MEDS ORDERED: Lidocaine HCl 4% 5 ML SDA ONE (11:49)
[2023-03-21] MEDS ORDERED: Etomidate 2MG / ML 10ML Vial ONE (11:50)
[2023-03-21] MEDS ORDERED: Phenylephrine HCl 100 MCG/ML-NS 10MLSYR (1MG/10ML) ONE (11:51)
[2023-03-21] MEDS ORDERED: Vasopressin 20 UNITS/ML 1ML Vial ONE (11:51)
[2023-03-21 12:50] VITALS: BP 149/88
== END 2023-03-21 12:49 | disposition home or self-care (01) ==
LOC: ORSCSDS 09:17
PROVIDERS: Specialist
PROC: 0DB58ZX Excision of Esophagus, Via Natural or Artificial Opening Endoscopic, Diagnostic (ICD-10-PCS; principal; 2023-03-21 10:45)
PROC: 0DB68ZX Excision of Stomach, Via Natural or Artificial Opening Endoscopic, Diagnostic (ICD-10-PCS; principal; 2023-03-21 10:45)
PROC: 0DB98ZX Excision of Duodenum, Via Natural or Artificial Opening Endoscopic, Diagnostic (ICD-10-PCS; principal; 2023-03-21 10:45)
DX: K22.70 Barrett's esophagus without dysplasia (principal); R23.4 Changes in skin texture; R13.10 Dysphagia, unspecified; Z87.11 Personal history of peptic ulcer disease; I10 Essential (primary) hypertension; Z95.1 Presence of aortocoronary bypass graft; E11.9 Type 2 diabetes mellitus without complications; G47.33 Obstructive sleep apnea (adult) (pediatric); F20.9 Schizophrenia, unspecified; F43.10 Post-traumatic stress disorder, unspecified; F31.9 Bipolar disorder, unspecified; F03.90 Unspecified dementia, unspecified severity, without behavioral disturbance, psychotic disturbance, mood disturbance, and anxiety; F17.210 Nicotine dependence, cigarettes, uncomplicated; Z79.01 Long term (current) use of anticoagulants; Z79.899 Other long term (current) drug therapy
CPT/HCPCS: 82947; 88305; 88342; J2001; J2371; J2704; J7120

== ENCOUNTER 2023-08-09 22:59 | Emergency (ER) | payer OTHER, MEDICARE ==
[~2023-08-09] VITALS: Ht 182.9 cm; Wt 83.5 kg
[~2023-08-09 22:59] MED LIST changes: +FAMO20; +Robaxin750 MG
[2023-08-10] MEDS ORDERED: OxyCODONE HCL 5 MG TAB PO ONE (00:55)
[2023-08-10 03:00] VITALS: BP 138/94
[2023-08-10] MEDS ORDERED: Methocarbamol 500 MG Tab PO ONE (03:20)
[2023-08-10] MEDS ORDERED: Robaxin750 MG PO (03:20)
== END 2023-08-10 03:45 | disposition home or self-care (01) ==
LOC: ER 22:59
DX: S29.012A Strain of muscle and tendon of back wall of thorax, initial encounter (principal); S16.1XXA Strain of muscle, fascia and tendon at neck level, initial encounter; S00.83XA Contusion of other part of head, initial encounter; I11.9 Hypertensive heart disease without heart failure; I50.9 Heart failure, unspecified; K21.9 Gastro-esophageal reflux disease without esophagitis; W01.0XXA Fall on same level from slipping, tripping and stumbling without subsequent striking against object, initial encounter; Z79.51 Long term (current) use of inhaled steroids; Z79.899 Other long term (current) drug therapy; Z88.2 Allergy status to sulfonamides; Z88.1 Allergy status to other antibiotic agents; Z88.8 Allergy status to other drugs, medicaments and biological substances
CPT/HCPCS: 70450; 72125; 72128; 99283-25; A9270

== ENCOUNTER 2023-08-12 21:31 | Emergency (ER) | payer OTHER ==
[~2023-08-12] VITALS: Ht 182.9 cm; Wt 82.1 kg
[~2023-08-12 21:31] MED LIST changes: +Robaxin750 MG PO
[2023-08-12 21:49] VITALS: BP 165/89
== END 2023-08-12 23:01 | disposition home or self-care (01) ==
LOC: ER 21:31
DX: S90.122A Contusion of left lesser toe(s) without damage to nail, initial encounter (principal); W22.8XXA Striking against or struck by other objects, initial encounter; Z88.8 Allergy status to other drugs, medicaments and biological substances; Z88.2 Allergy status to sulfonamides; Z88.1 Allergy status to other antibiotic agents; Z79.899 Other long term (current) drug therapy; I48.91 Unspecified atrial fibrillation; I11.0 Hypertensive heart disease with heart failure; I50.9 Heart failure, unspecified; K21.9 Gastro-esophageal reflux disease without esophagitis; Z87.891 Personal history of nicotine dependence; M19.072 Primary osteoarthritis, left ankle and foot
CPT/HCPCS: 73620; 99283-25

== ENCOUNTER 2023-09-02 13:35 | Day surgery (SDC) | payer OTHER ==
[~2023-09-02] VITALS: Ht 182.9 cm; Wt 82.8 kg
[~2023-09-02 13:35] MED LIST changes: +Atropine Sulfate 0.1 MG/ML 10ML SYR ONE; +Glycopyrrolate 0.2 MG/ML 1MLVIAL ONE; +Lactated Ringer's 1,000 ML IV ONE; +Lidocaine 2% 5 ML SDV ONE; +Lidocaine HCl/Pf 1% 5 ML VIAL ONE; +Methylene Blue 1% 100 MG/10 ML VIAL ONE; +Ondansetron HCl 2 MG / ML 2ML Vial ONE; +ePHEDrine Sulfate 50 MG/ML 1ML Injection ONE
[2023-09-02] MEDS ORDERED: AMOCLA500 (13:50)
[2023-09-02] MEDS ORDERED: ALBU90OI (13:50)
[2023-09-02] MEDS ORDERED: MELA3 (13:51)
[2023-09-02] MEDS ORDERED: DONE5 (13:51)
[2023-09-02] MEDS ORDERED: DIPATR (13:51)
[2023-09-02] MEDS ORDERED: ZENPEP DR 40,01 EACH (13:51)
[2023-09-02] MEDS ORDERED: DICLOFENAC SOD100 GM (13:51)
[2023-09-02] MEDS ORDERED: ONDA4ODT (13:52)
[2023-09-02] MEDS ORDERED: PANT20 (13:52)
[2023-09-02] MEDS ORDERED: Lactated Ringer's 1,000 ML IV ONE (14:50)
[2023-09-02] MEDS ORDERED: propofoL 50 ML IV ONE ×2 (15:10→15:50)
--- NOTE | 2023-09-02 16:20 | NUR ---
09/02/23 1620 Nikky Colon PT SLOW TO WAKE. AWAKE AROUND 1614.
[2023-09-02 16:40] VITALS: BP 141/99
== END 2023-09-02 16:48 | disposition home or self-care (01) ==
LOC: ORSCSDS 13:35
PROVIDERS: Internal Medicine Gastroenterology
PROC: 0DBK8ZX Excision of Ascending Colon, Via Natural or Artificial Opening Endoscopic, Diagnostic (ICD-10-PCS; principal; 2023-09-02 15:00)
PROC: 0DBL8ZX Excision of Transverse Colon, Via Natural or Artificial Opening Endoscopic, Diagnostic (ICD-10-PCS; principal; 2023-09-02 15:00)
DX: Z86.010 Personal history of colon polyps (principal); D12.2 Benign neoplasm of ascending colon; K63.5 Polyp of colon; Z80.0 Family history of malignant neoplasm of digestive organs; I10 Essential (primary) hypertension; J44.9 Chronic obstructive pulmonary disease, unspecified; E11.9 Type 2 diabetes mellitus without complications; G47.33 Obstructive sleep apnea (adult) (pediatric); I25.10 Atherosclerotic heart disease of native coronary artery without angina pectoris; I48.91 Unspecified atrial fibrillation; F20.9 Schizophrenia, unspecified; F43.10 Post-traumatic stress disorder, unspecified; K21.9 Gastro-esophageal reflux disease without esophagitis; E78.5 Hyperlipidemia, unspecified; F31.9 Bipolar disorder, unspecified; Z87.891 Personal history of nicotine dependence; Z79.01 Long term (current) use of anticoagulants; Z79.899 Other long term (current) drug therapy
CPT/HCPCS: 82947; 88305; J0461; J2001; J2405; J2704; J7120; Q9968

== ENCOUNTER 2024-05-25 10:37 | Emergency (ER) | payer MEDICARE ==
[~2024-05-25] VITALS: Ht 185.4 cm; Wt 87.1 kg
[~2024-05-25 10:37] MED LIST changes: +ALBU90OI; +AMOCLA500; -Atropine Sulfate 0.1 MG/ML 10ML SYR ONE; +DICLOFENAC SOD100 GM; +DIPATR; +DONE5; -Glycopyrrolate 0.2 MG/ML 1MLVIAL ONE; -Lactated Ringer's 1,000 ML IV ONE; -Lidocaine 2% 5 ML SDV ONE; -Lidocaine HCl/Pf 1% 5 ML VIAL ONE; +MELA3; -Methylene Blue 1% 100 MG/10 ML VIAL ONE; +ONDA4ODT; -Ondansetron HCl 2 MG / ML 2ML Vial ONE; +PANT20; +ZENPEP DR 40,01 EACH; -ePHEDrine Sulfate 50 MG/ML 1ML Injection ONE
[2024-05-25] MEDS ORDERED: Acetaminophen 500 MG Tab PO ONE (10:55)
[2024-05-25] MEDS ORDERED: Metoclopramide HCl 10 MG Tab PO ONE (11:00)
[2024-05-25 11:45] VITALS: BP 118/77
[2024-05-25] MEDS ORDERED: METO5A PO (11:54)
[2024-05-28] MEDS ORDERED: Voltaren100 GM TOP (15:17)
[2024-05-28] MEDS ORDERED: BENZ100A PO (15:18)
[2024-05-28] MEDS ORDERED: MIRT30 PO (15:20)
[2024-05-28] MEDS ORDERED: OLAN20 MM (15:22)
[2024-05-28] MEDS ORDERED: TEMA15 PO (15:23)
== END 2024-05-25 12:05 | disposition home or self-care (01) ==
LOC: ER 10:37
DX: S09.90XA Unspecified injury of head, initial encounter (principal); R11.0 Nausea; I48.91 Unspecified atrial fibrillation; G20.A1 Parkinson's disease without dyskinesia, without mention of fluctuations; I25.10 Atherosclerotic heart disease of native coronary artery without angina pectoris; I11.0 Hypertensive heart disease with heart failure; I50.9 Heart failure, unspecified; K21.9 Gastro-esophageal reflux disease without esophagitis; Z87.891 Personal history of nicotine dependence; Z88.8 Allergy status to other drugs, medicaments and biological substances; Z88.2 Allergy status to sulfonamides; Z88.1 Allergy status to other antibiotic agents; Z79.01 Long term (current) use of anticoagulants; Z79.899 Other long term (current) drug therapy; W22.8XXA Striking against or struck by other objects, initial encounter
CPT/HCPCS: 70450; 99283-25; A9270

== ENCOUNTER 2024-05-31 06:21 | Day surgery (SDC) | payer MEDICARE ==
[2024-05-31] VITALS (15 sets, daily range): BP systolic 113–135; BP diastolic 71–93
[~2024-05-31 06:21] MED LIST changes: +BENZ100A PO; +METO5A PO; +MIRT30 PO; +OLAN20 MM; +Voltaren100 GM TOP
[2024-05-31] MEDS ORDERED: Lidocaine HCl 2% 20 ML MDV INJ ONE (06:26)
[2024-05-31] MEDS ORDERED: propofoL 20 ML IV ONE (06:26)
[2024-05-31] MEDS ORDERED: NS 1,000 ML IV ONE (06:34)
--- NOTE | 2024-05-31 07:16 | NUR ---
ASSUMED CARE FROM ANESTHESIA. PT IS AWAKE AND VERBALIZING WELL. AFIB 77BPM POST CARDIOVERSION X2.
--- NOTE | 2024-05-31 07:41 | NUR ---
PT AND FAMILY VERBALIZED UNDERSTANDING OF WRITTEN AND VERBAL D/C INST. IV REMOVED. AFIB 83BPM. PT WILL BE TAKEN OUT OF THE HRT CENTER VIA W/C.
== END 2024-05-31 23:00 | disposition home or self-care (01) ==
LOC: MHTC 06:21
DX: I48.19 Other persistent atrial fibrillation (principal); I25.10 Atherosclerotic heart disease of native coronary artery without angina pectoris; Z95.1 Presence of aortocoronary bypass graft; I25.5 Ischemic cardiomyopathy; I10 Essential (primary) hypertension; E11.9 Type 2 diabetes mellitus without complications; I77.810 Thoracic aortic ectasia; E78.5 Hyperlipidemia, unspecified; K21.9 Gastro-esophageal reflux disease without esophagitis; G47.33 Obstructive sleep apnea (adult) (pediatric); Z87.891 Personal history of nicotine dependence; Z88.2 Allergy status to sulfonamides; Z88.5 Allergy status to narcotic agent; Z88.1 Allergy status to other antibiotic agents; Z88.8 Allergy status to other drugs, medicaments and biological substances; Z79.899 Other long term (current) drug therapy
CPT/HCPCS: 92960; J2704; J7030

== ENCOUNTER 2024-08-20 16:49 | Emergency (ER) | payer MEDICARE ==
[~2024-08-20] VITALS: Ht 182.9 cm; Wt 92.1 kg
[~2024-08-20 16:49] MED LIST changes: +ACET500 PO; +CARV6.25; +Crestor40 MG PO; +DONE10 PO; +Isosorbide Mono30 MG PO; +LOSA25 PO; +OLAN10A MM; +QUET100 PO; +TORS10 PO
[2024-08-20 17:12] VITALS: BP 120/81
[2024-08-20] MEDS ORDERED: Ketorolac Tromethamine 15mg Vial IM ONE (17:15)
[2024-08-20] MEDS ORDERED: Robaxin750 MG PO (18:26)
== END 2024-08-20 18:38 | disposition home or self-care (01) ==
LOC: ER 16:49
DX: S16.1XXA Strain of muscle, fascia and tendon at neck level, initial encounter (principal); M43.6 Torticollis; K21.9 Gastro-esophageal reflux disease without esophagitis; I48.91 Unspecified atrial fibrillation; I11.0 Hypertensive heart disease with heart failure; I50.20 Unspecified systolic (congestive) heart failure; X58.XXXA Exposure to other specified factors, initial encounter; Z87.891 Personal history of nicotine dependence; Z79.899 Other long term (current) drug therapy; Z88.5 Allergy status to narcotic agent; Z88.1 Allergy status to other antibiotic agents; Z88.8 Allergy status to other drugs, medicaments and biological substances
CPT/HCPCS: 96372; 99283-25; A9270; J1885

== ENCOUNTER 2024-08-20 23:33 | Emergency (ER) | payer MEDICARE ==
[~2024-08-20] VITALS: Ht 182.9 cm; Wt 86.2 kg
[2024-08-21] MEDS ORDERED: RX Prepack 6 Tabs Oxycodone 5mg UD ONE (02:20)
[2024-08-21 02:34] VITALS: BP 162/83
== END 2024-08-21 02:35 | disposition home or self-care (01) ==
LOC: ER 23:33
DX: M62.838 Other muscle spasm (principal); Z59.89 Other problems related to housing and economic circumstances; Z88.8 Allergy status to other drugs, medicaments and biological substances; Z88.2 Allergy status to sulfonamides; Z79.899 Other long term (current) drug therapy; I48.91 Unspecified atrial fibrillation; I11.0 Hypertensive heart disease with heart failure; I50.20 Unspecified systolic (congestive) heart failure; K21.9 Gastro-esophageal reflux disease without esophagitis; Z87.891 Personal history of nicotine dependence
CPT/HCPCS: 99282; A9270

== ENCOUNTER 2024-09-28 16:12 | Emergency (ER) | payer OTHER, MEDICARE ==
[~2024-09-28] VITALS: Ht 185.4 cm; Wt 86.2 kg
[2024-09-28] MEDS ORDERED: CHLO50 PO (17:10)
[2024-09-28] MEDS ORDERED: DIGOX125 MC1 PO (17:11)
[2024-09-28 17:23] LABS: BASOPHILS ABSOLUTE AUTO 0.07 K/mm3 (0.00-0.23); BASOPHILS PERCENT AUTO 1 % (0-2); EOSINOPHILS ABSOLUTE AUTO 0.34 K/mm3 (0.00-0.68); EOSINOPHILS PERCENT AUTO 4 % (0-6); Hematocrit 41.8 % (37.0-53.0); Hemoglobin 13.2 g/dL (13.5-17.5); IMMATURE GRAN ABSOLUTE AUTO 0.02 K/mm3 (0.00-0.10); IMMATURE GRAN PERCENT AUTO 0 % (0-1); LYMPHOCYTES ABSOLUTE AUTO 0.96 K/mm3 (0.84-5.20); LYMPHOCYTES PERCENT AUTO 12 % (21-46); MONOCYTES ABSOLUTE AUTO 0.73 K/mm3 (0.16-1.47); MONOCYTES PERCENT AUTO 9 % (4-13); Mean Corpuscular HGB Conc 31.6 g/dL (31.5-36.5); Mean Corpuscular Volume 94 fL (80-100); NEUTROPHILS ABSOLUTE AUTO 5.65 K/mm3 (1.96-9.15); NEUTROPHILS PERCENT AUTO 73 % (41-73); NRBC ABSOLUTE 0.00 K/mm3 (0.00-0.02); NRBC Auto 0.0 /100 WBC (0.0-0.2); Platelet Count 234 K/mm3 (150-400); RDW Coefficient Variation 15.0 % (11.7-14.2); RDW Standard Deviation 52.9 fL (35.1-46.3)
[2024-09-28 17:42] LABS: Anion Gap 4.0 mmol/L (3-11); Blood Urea Nitrogen 10.0 mg/dL (8-24); CO2, Blood 30.0 mmol/L (21-32); Calcium, Blood 9.4 mg/dL (8.5-10.1); Chloride, Blood 105.0 mmol/L (98-108); Creatinine, Blood 0.7 mg/dL (0.60-1.20); Glucose, Blood 103.0 mg/dL (70-99); Potassium, Blood 4.6 mmol/L (3.5-5.5); Sodium, Blood 134.0 mmol/L (136-145)
[2024-09-28 17:45] VITALS: BP 196/106
== END 2024-09-28 18:40 | disposition home or self-care (01) ==
LOC: ER 16:12
PROVIDERS: Student in an Organized Health Care Education/Training Program
DX: S00.03XA Contusion of scalp, initial encounter (principal); S80.01XA Contusion of right knee, initial encounter; K86.9 Disease of pancreas, unspecified; I48.91 Unspecified atrial fibrillation; G20.A1 Parkinson's disease without dyskinesia, without mention of fluctuations; I11.0 Hypertensive heart disease with heart failure; I50.20 Unspecified systolic (congestive) heart failure; I25.10 Atherosclerotic heart disease of native coronary artery without angina pectoris; K21.9 Gastro-esophageal reflux disease without esophagitis; Z87.891 Personal history of nicotine dependence; Z88.8 Allergy status to other drugs, medicaments and biological substances; Z88.2 Allergy status to sulfonamides; Z88.1 Allergy status to other antibiotic agents; Z79.01 Long term (current) use of anticoagulants; Z79.899 Other long term (current) drug therapy; W01.10XA Fall on same level from slipping, tripping and stumbling with subsequent striking against unspecified object, initial encounter
CPT/HCPCS: 70450; 70486; 71260; 72125; 73560-RT; 74177; 80048; 85025; 90471; 90715; 99284-25; L0160; Q9967

== ENCOUNTER 2024-10-06 15:52 | Inpatient (IN) | payer MEDICARE, OTHER ==
[~2024-10-06] VITALS: Ht 172.7 cm; Wt 82.0 kg
[~2024-10-06 15:52] MED LIST changes: +CHLO50 PO; +DIGOX125 MC1 PO
[2024-10-06 16:37] LABS: BASOPHILS ABSOLUTE AUTO 0.07 K/mm3 (0.00-0.23); BASOPHILS PERCENT AUTO 0 % (0-2); EOSINOPHILS ABSOLUTE AUTO 0.00 K/mm3 (0.00-0.68); EOSINOPHILS PERCENT AUTO 0 % (0-6); Hematocrit 48.1 % (37.0-53.0); Hemoglobin 15.7 g/dL (13.5-17.5); IMMATURE GRAN ABSOLUTE AUTO 0.07 K/mm3 (0.00-0.10); IMMATURE GRAN PERCENT AUTO 0 % (0-1); LYMPHOCYTES ABSOLUTE AUTO 1.03 K/mm3 (0.84-5.20); LYMPHOCYTES PERCENT AUTO 7 % (21-46); MONOCYTES ABSOLUTE AUTO 1.50 K/mm3 (0.16-1.47); MONOCYTES PERCENT AUTO 10 % (4-13); Mean Corpuscular HGB Conc 32.6 g/dL (31.5-36.5); Mean Corpuscular Volume 92 fL (80-100); NEUTROPHILS ABSOLUTE AUTO 12.95 K/mm3 (1.96-9.15); NEUTROPHILS PERCENT AUTO 83 % (41-73); NRBC ABSOLUTE 0.00 K/mm3 (0.00-0.02); NRBC Auto 0.0 /100 WBC (0.0-0.2); Platelet Count 363 K/mm3 (150-400); RDW Coefficient Variation 14.6 % (11.7-14.2); RDW Standard Deviation 49.1 fL (35.1-46.3)
[2024-10-06 17:03] LABS: Prothrombin Time Results 12.6 Sec (9.7-11.5)
[2024-10-06 17:21] LABS: Alanine Aminotransfer (ALT/SGP 23.0 U/L (12-78); Albumin, Blood 4.3 g/dL (3.4-5.0); Albumin/Globulin Ratio 1.0 (0.8-1.8); Anion Gap 11.0 mmol/L (3-11); Aspartate Aminotrans (AST/SGOT 27.0 U/L (12-37); Bilirubin, Total 1.1 mg/dL (0.1-1.0); Blood Urea Nitrogen 15.0 mg/dL (8-24); CO2, Blood 28.0 mmol/L (21-32); Calcium, Blood 10.2 mg/dL (8.5-10.1); Chloride, Blood 96.0 mmol/L (98-108); Creatinine, Blood 0.54 mg/dL (0.60-1.20); Globulin, Blood 4.3 g/dL (2.2-4.0); Glucose, Blood 148.0 mg/dL (70-99); Potassium, Blood 4.7 mmol/L (3.5-5.5); Sodium, Blood 130.0 mmol/L (136-145); Total Protein, Blood 8.6 g/dL (6.4-8.2)
[2024-10-06] MEDS ORDERED: D5W-NS 1,000 ML IV SCH (19:00)
[2024-10-06 20:57] LABS: Lithium 0.79 mmol/L (0.60-1.20)
[2024-10-06 21:21] LABS: Source, Urine Straight Cath
[2024-10-06 21:22] LABS: Bilirubin, Urine Neg (Neg); Color, Urine Amber (P-Yellow); Glucose Qualitative, Urine Neg (Neg); Ketones, Urine 2+ (Neg); Leukocyte Esterase, Urine 1+ (Neg); Protein, Urine 3+ (Neg); Specific Gravity, Urine 1.025 (1.003-1.022); Urobilinogen, Urine NORM (Normal)
[2024-10-06 21:55] VITALS: BP 129/89
[2024-10-06 22:00] LABS: Lithium 0.74 mmol/L (0.60-1.20)
[2024-10-07] VITALS (8 sets, daily range): BP systolic 125–180; BP diastolic 80–122
[2024-10-07 00:17] LABS: Salicylate <1.7 mg/dL (2.8-20.0)
[2024-10-07 00:30] LABS: Acetaminophen, Random <2.0 ug/mL (10.0-30.0)
--- NOTE | 2024-10-07 01:23 | NUR ---
ADMIT NOTE PT DIRECT ADMIT FROM ED FOR SUBARACHNOID HEMORRHAGE FOLLOWING A FALL AT HOME. PT IS A&OX1, ORIENTED TO SELF ONLY. PT ORIENTED TO CALL LIGHT, ROOM, SAFETY AND FALL PRECAUTIONS. 1:1 SITTER AT BEDSIDE. ED NURSE REPORTED COMBATIVENESS FROM PT WHEN TRYING TO COLLECT URINE SAMPLE AND PLACE IV. IV PLACED IN ED, BUT PT PULLED IT OUT PRIOR TO ARRIVAL ONTO UNIT. INTERNET WEBMASTER SUCCESSFULLY PLACED 20G IN KASH[place]. HEMATOMA PRESENT ON L SIDE OF FACE AND MULTIPLE WOUNDS PRESENT ON ADMISSION. PICS PLACED IN CHART. LEAST RESTRICTIVE MEASURES UNSUCCESSFUL IN KEEPING PT IN BED. ORDER OBTAINED FROM PROVIDER AND RICHELLE VEST PLACED ON PT. AUTHOR ALSO RECEIVED CALL FROM PT'S . PT'S STATED PT HAD 16 MISSING PILLS FROM CLONAZEPAM BOTTLE AND 6 MISSING PILLS FROM SEROQUEL BOTTLE. PT'S STATED SHE THINKS PT MIGHT HAVE TAKEN TOO MANY PILLS, CONTRIBUTING TO HIS FALL AT HOME. MD AND POISION CONTROL NOTIFIED. POISON CONTROL RECOMMENDED EKG, TYLENOL AND ASPIRIN LEVELS DRAWN, AND TELE FOR AT LEAST 6 HOURS. MD AGREES AND ORDERS PLACED. THIS AUTHOR UNABLE TO COMPLETE MED REC OR HISTORY D/T PT'S CONDITION. WILL PASS THAT ONTO DAY SHIFT. BED RAILS UP X 3, BED IN LOWEST POSITION, BED WHEELS LOCKED, PERSONAL BELONGINGS AND CALL LIGHT WITHIN REACH. 1:1 SITTER AT BEDSIDE FOR SAFETY.
--- NOTE | 2024-10-07 03:23 | NUR ---
TONO FROM POISON CONTROL CALLED FOR FOLLOW UP AFTER EARLIER CONVERSATION W/ FABIAN. THIS AUTHOR RELAYED ASPIRIN LAB, TYLENOL LAB, AND EKG RESULTS WELL LATEST VS. TONO NOTED NO MAJOR CONCERNS. TONO RECOMMENDED SEIZURE PRECAUTIONS. NOTIFIED. ORDERS PLACED.
[2024-10-07] MEDS ORDERED: Midazolam HCl 1MG / ML 2ML Vial IV ONE (04:00)
[2024-10-07 05:08] LABS: BASOPHILS ABSOLUTE AUTO 0.08 K/mm3 (0.00-0.23); BASOPHILS PERCENT AUTO 1 % (0-2); EOSINOPHILS ABSOLUTE AUTO 0.03 K/mm3 (0.00-0.68); EOSINOPHILS PERCENT AUTO 0 % (0-6); Hematocrit 45.1 % (37.0-53.0); Hemoglobin 15.0 g/dL (13.5-17.5); IMMATURE GRAN ABSOLUTE AUTO 0.08 K/mm3 (0.00-0.10); IMMATURE GRAN PERCENT AUTO 1 % (0-1); LYMPHOCYTES ABSOLUTE AUTO 1.15 K/mm3 (0.84-5.20); LYMPHOCYTES PERCENT AUTO 7 % (21-46); MONOCYTES ABSOLUTE AUTO 1.83 K/mm3 (0.16-1.47); MONOCYTES PERCENT AUTO 11 % (4-13); Mean Corpuscular HGB Conc 33.3 g/dL (31.5-36.5); Mean Corpuscular Volume 89 fL (80-100); NEUTROPHILS ABSOLUTE AUTO 13.89 K/mm3 (1.96-9.15); NEUTROPHILS PERCENT AUTO 81 % (41-73); NRBC ABSOLUTE 0.00 K/mm3 (0.00-0.02); NRBC Auto 0.0 /100 WBC (0.0-0.2); Platelet Count 333 K/mm3 (150-400); RDW Coefficient Variation 14.3 % (11.7-14.2); RDW Standard Deviation 46.5 fL (35.1-46.3)
[2024-10-07 05:25] LABS: Anion Gap 10.0 mmol/L (3-11); Blood Urea Nitrogen 17.0 mg/dL (8-24); CO2, Blood 23.0 mmol/L (21-32); Calcium, Blood 9.6 mg/dL (8.5-10.1); Chloride, Blood 100.0 mmol/L (98-108); Creatinine, Blood 0.69 mg/dL (0.60-1.20); Glucose, Blood 163.0 mg/dL (70-99); Potassium, Blood 4.4 mmol/L (3.5-5.5); Sodium, Blood 129.0 mmol/L (136-145)
--- NOTE | 2024-10-07 06:32 | NUR ---
PRINT GRAPHIC DESIGNER SUMMARY PT REMAINS A&OX1, ORIENTED TO SELF ONLY, AND CONFUSED. PT HAS HAD RICHELLE VEST REMOVED AND TWO POINT SOFT RESTRAINTS PLACED FOLLOWING ATTEMPTS TO SWING AT STAFF, INTERFERE W/ CARE, AND GET OUT OF BED UNSAFELY. ZYPREXA AND VERSED GIVEN 1X EACH WITH MILD EFFECT. MALE PUREWICK PLACED FOR INCONTINENCE, DRAINING TO SUCTION. PT REMAINS ON TELE. A FLUTTER W/ BBB AT 90. ON BED REST AT THIS TIME D/T CONFUSION AND FALL RISK. POISON CONTROL TO PERFORM ANOTHER FOLLOW UP AT 10 AM. ON Q4 NEURO CHECKS AT THIS TIME. BED RAILS UP X 3, BED IN LOWEST POSITION, BED WHEELS LOCKED, CALL LIGHT IN REACH. 1:1 SITTER AT BEDSIDE FOR SAFETY.
--- NOTE | 2024-10-07 11:01 | NUR ---
NOTE POISEN CONTROL CALLED FOR UPDATE. THIS RN REPORTED PT CURRENT CONDITION, REPORTED EKG RESULTS DURING NIGHT. POISEN CONTROL REPORTED "WILL CALL BACK FOR UPDATE AT 9PM. PT MAY BENEFIT FROM LOW DOSE OF BENZO DUE TO POSSIBLE WITHDRAWL SYMPTOMS." PT CURRENTLY A&OXSELF. PT SHOWS TREMORS IN HANDS. YELLS OUT, PT HAS GOOD CAP REFILL, AT RISK FOR FALLS AND PULLING LINES AND HARM TO SELF, SOFT WRIST RESTRAINTS IN PLACE. AT BEDSIDE. REPORTED "PT TAKES HIS MEDS BY HIMSELF REPORTS TO THAT IM A MAN WHO CAN BE INCHARGE OF OWN MEDS." BROUGHT IN PT HOME MED LIST, REPORTED WAS UPDATED ON August. TOOK PT BLOOD PRESSURE, BP IS 180/117. CALLED DR. OLMSTEAD, DR. OLMSTEAD REPORTED NEED UPDATED MED LIST. PT IN BED, BED IN LOWEST POSITION, CALL LIGHT IN REACH, SEIZURE PRECAUTIONS IN PLACE.
[2024-10-07] MEDS ORDERED: Prinivil10 MG PO (11:44)
[2024-10-07] MEDS ORDERED: CYCL10 PO (11:47)
[2024-10-07] MEDS ORDERED: CLON1 PO (11:54)
[2024-10-07] MEDS ORDERED: FAMO20 PO (11:56)
[2024-10-07] MEDS ORDERED: NASONEX 24HR AL17 ML (12:01)
[2024-10-07] MEDS ORDERED: QUIN300 PO (12:02)
[2024-10-07] MEDS ORDERED: ZENPEP DR 40,01 EACH PO (12:06)
[2024-10-07 14:06] LABS: Lithium 0.59 mmol/L (0.60-1.20)
--- NOTE | 2024-10-07 14:08 | NUR ---
NOTE MED REC UPDATED. DR. OLMSTEAD NOTIFIED THIS AM. DR. OLMSTEAD NOTIFIED W POISEN CONTROL RECOMENDATION. DR. OLMSTEAD ORDERED PO BLOOD PRESSURE MEDS. PT A&OXSELF, IS NOT REDIRECTABLE. PT HAS TREMORS IN HANDS, CALLED DR. OLMSTEAD TO NOTIFY THIS RN BELIEVES PT UNSAFE TO SWALLOW. DR. OLMSTEAD RESPONDED, "SIT PT UP 90 DEGREES TRY TO FEED HIM APPLESAUCE, SEE HOW HE DOES." PT ON CLEAR LIQUID DIET. ATTEMPTED TO DO ORAL CARE W MOUTH SWAB TO ASSESS PT RESPONSE, PT CLOSED MOUTH AND FURROWED FACE, SHOOK HEAD NO. CALLED DR. OLMSTEAD TO REPORT, LEFT VOICEMAIL. DR. OLMSTEAD NOT IN OFFICE. ATTEMPTED TO CALL DR. OLMSTEAD 15 MINUTES LATER, NO ANSWER, DR. OLMSTEAD NOT IN OFFICE. SEIZURE PADS IN PLACE. BED IN LOWEST POSITION, CALL LIGHT IN REACH. LOW DOSE BENZO PER POISEN CONTROL RECOMENDATION NOT ORDERED.
[2024-10-07] MEDS ORDERED: HydrALAZINE HCl 20 MG / ML 1ML Vial IV STA (14:44)
--- NOTE | 2024-10-07 17:46 | NUR ---
NOTE DR. OLMSTEAD CAME AT BEDSIDE FOR A SWALLOW EVAL. PT HELD JELLO IN MOUTH, DROOLED BROTH. PT HAS HARD TIME FOLLOWING DIRECTIONS. DR. OLMSTEAD ORDERED ONE TIME OF HYDRALAZINE 10MG. HYDRALAZINE GIVEN LATE DUE TO PT TRANSPORTED TO HEAD CT. HEAD CT COMPLETE. DR. ROMERO ROUNDED ON PT. DR. OLMSTEAD NOTIFIED OF HEAD CT AND HYDRALAZINE GIVEN LATE. PT BLOOD PRESSURE POST HYDRALAZINE, IS 144/104.
[2024-10-07] MEDS ORDERED: Isosorbide Mononitrate 60 MG TABCR PO SCH (18:00)
[2024-10-07] MEDS ORDERED: Amylase/Lipase/Protease DR 20,000 PO PRN (19:20)
--- NOTE | 2024-10-07 19:46 | NUR ---
SHIFT SUMMARY PT RESPONDS TO PAINFUL STIMULI, TURNED Q2. PT ON TELE, NO TELE REPORTS, TELE REPORTED PT HAS PACEMAKER AND IS V PACED. PT REMAINS IN 2 POINT SOFT WRIST RESTRAINT DUE TO AGITATION/PULLING AT LINES. PT PULLED OFF PERWICK MULTIPLE TIMES. PT REMAINS W ATTENDS IN PLACE, CHANGED PRN. PT HAS D5 NS RUNNING AT 75ML/HR. SEIZURE PRECAUTIONS IN PLACE. PT ADMITTED DUE TO SUBARACHNOID HEMORRHAGE FOLLOWING INJURY, PT FURROWS FACE AND GRIMMACES W TURNS. PT ON CLEAR LIQUID DIET, DOES NOT HAVE ADEQUATE NUTRITION DUE TO NOT ABLE TO FOLLOW COMMANDS. PHARMACY RECOMENDED WARM COMPRESS ON KASHMIR DUE TO IV INFILTRATION, REPORTED TO NIGHT RN. PT IN BED, BED IN LOWEST POSITION, CALL LIGHT IN REACH. TOLD NIGHT RN THIS AM POISEN CONTROL RECOMENDATION AND THAT IT WAS REPORTED TO DR. OLMSTEAD.
--- NOTE | 2024-10-07 22:46 | NUR ---
RN ATTEMPTED TO FEED PT MEDICATION W/ CLEAR THICKENED LIQUIDS. PT AGAIN CLOSED MOUTH, FURROWED FACE, AND SHOOK HIS HEAD NO. PROVIDER NOTIFIED. ORDERS PLACED FOR IV FAMOTIDINE 1X.
[2024-10-08] VITALS (26 sets, daily range): BP systolic 101–195; BP diastolic 30–174
--- NOTE | 2024-10-08 06:13 | NUR ---
RAIL CAR UNLOADER SUMMARY PT A&OX1 (SELF ONLY) AND CONFUSED. PT REMAINS ON TWO POINT SOFT RESTRAINTS FOR INTERFERING W/ CARE AND ATTEMPTING TO GET OUT OF BED UNSAFELY. PT PULLED OUT MALE PUREWICK DURING AM SHIFT. REMAINS IN ATTENDS W/ REGULAR CHECKS AND CHANGES. PT REMAINS ON TELE. A FLUTTER W/ BBB AT 105. PT DID HAVE A VEWS SCORE OF 4 THIS SHIFT. ON Q2H VS CHECKS, PLACED ON STRICT 1&O, HEEL CEMENTER MACHINE CONSULTED, AND PROVIDER NOTIFIED. NO FURTHER ORDERS AT THIS TIME. PT REFUSED TO TAKE MEDICATIONS DESPITE MULTIPLE ATTEMPTS BY AUTHOR TO FEED PT. PROVIDER NOTIFIED AND ORDERS FOR IV FAMOTIDINE PLACED. JEFFERSON PG REMAINS WNL. DRESSINGS PLACED W/ XEROFOAM AND GUAZE FOLLOWING EXTRAVASATION DURING AM SHIFT. D5W-NS WAS RUNNING THROUGH A L ARM IV AT THE TIME. BED RAILS UP X 3, BED IN LOWEST POSITION, BED WHEELS LOCKED, PERSONAL BELONGINGS AND CALL LIGHT WITHIN REACH FOR SAFETY. AT THE TIME.
[2024-10-08] MEDS ORDERED: Amylase/Lipase/Protease DR 20,000 PO SCH (08:30)
[2024-10-08] MEDS ORDERED: Fluticasone 0.05% Nasal Spray SCH (09:00)
[2024-10-08] MEDS ORDERED: Isosorbide Mononitrate 60 MG TABCR PO SCH (09:00)
[2024-10-08] MEDS ORDERED: Torsemide 20 MG TAB PO SCH (09:00)
[2024-10-08 10:01] LABS: Anion Gap 8.0 mmol/L (3-11); Blood Urea Nitrogen 20.0 mg/dL (8-24); CO2, Blood 23.0 mmol/L (21-32); Calcium, Blood 9.0 mg/dL (8.5-10.1); Chloride, Blood 107.0 mmol/L (98-108); Creatinine, Blood 0.75 mg/dL (0.60-1.20); Glucose, Blood 202.0 mg/dL (70-99); Potassium, Blood 4.3 mmol/L (3.5-5.5); Sodium, Blood 134.0 mmol/L (136-145)
[2024-10-08 10:30] LABS: pH Blood Arterial 7.49 (7.35-7.45)
--- NOTE | 2024-10-08 10:31 | NUR ---
PT DROWSY AND LETHARGIC THIS AM, UNABLE TO TAKE PO. DR OLMSTEAD IN TO SEE PT AND WAS ABLE TO WAKE PT ENOUGH TO TAKE A SMALL SPOON OF JELLO. SP LAQUITA ORDERED. DR OLMSTEAD REQUESTING PT TO RECEIVE KLONAPIN AT THIS TIME, IF PT ABLE TO SWALLOW.
[2024-10-08 11:49] LABS: Hematocrit 46.9 % (37.0-53.0); Hemoglobin 15.2 g/dL (13.5-17.5); Mean Corpuscular HGB Conc 32.4 g/dL (31.5-36.5); Mean Corpuscular Volume 91 fL (80-100); NRBC ABSOLUTE 0.00 K/mm3 (0.00-0.02); NRBC Auto 0.0 /100 WBC (0.0-0.2); Platelet Count 376 K/mm3 (150-400); RDW Coefficient Variation 14.8 % (11.7-14.2); RDW Standard Deviation 49.6 fL (35.1-46.3)
--- NOTE | 2024-10-08 13:46 | NUR ---
NOTE THIS AM THIS RN NOTICED PT EYES CLOSED BUT GRIMACE WHEN REPOSITIONING. CALLED DR. OLMSTEAD TO NOTIFY PT CONDITION AND AM VITALS. DR. OLMSTEAD REPORTED "PT LIKELY HAD BUSY NIGHT AND IS TIRED." THIS RN NOTIFIED CHARGE NURSE. GREENSTONE POLISHER OPERATOR ISAC CAME TO ASSESS PT. GREENSTONE POLISHER OPERATOR DID STERNAL RUB AND NOTICED PT EYES OPENED A LITTLE BUT NOT ENOUGH TO GET PT ATTENTION. SUGGESTED ABG LAB TO CHECK METABOLIC STATUS. THIS RN WENT TO DR. OLMSTEAD OFFICE, THIS RN REPORTED PT CONDITION REMAINED AND PT POSSIBLY IN PAIN DUE TO GRIMMACING TO DR. OLMSTEAD . THIS RN REPORTED UNABLE TO GIVE ORAL MEDS DUE TO PT NOT RESPONDING. DR. OLMSTEAD REPORTED "HOLD ORAL AM MEDS AND WILL ORDER ST EVAL AND TREAT AND ABG." DR. OLMSTEAD AT BEDSIDE WITH BREAK RN, DR. OLMSTEAD ATTEMPTED TO GIVE JELLO WITH BREAK RN. BREAK RN REPORTED "PT HELD IT IN HIS MOUTH THEN SWALLOWED." DR. OLMSTEAD REPORTED "GIVE KLONOPIM PO." THIS RN ASSESSED NOTICED PT IS ASPIRATION RISK. SPEECH THERAPY CAME TO ASSESS PT. SPEECH THERAPY REPORTED "PT SHOULD BE NPO." NOTIFIED DR. OLMSTEAD PT SHOULD BE NPO PER SPEECH EVAL. THIS RN UNABLE TO GIVE ORAL KLONOPIN, DR. OLMSTEAD NOTIFIED. DR. OLMSTEAD REPORTED "OK I WILL REVIEW LABS." NO NEW ORDERS AT THIS TIME. PT IN BED, BED IN LOWEST POSITION, CALL LIGHT IN REACH.
[2024-10-08] MEDS ORDERED: HydrALAZINE HCl 20 MG / ML 1ML Vial IV PRN (15:00)
[2024-10-08] MEDS ORDERED: FentaNYL Citrate 50 MCG/ML 2 ML Injection IV STA (15:43)
[2024-10-08] MEDS ORDERED: FentaNYL Citrate 50 MCG/ML 2 ML Injection IV PRN (16:00)
--- NOTE | 2024-10-08 16:49 | NUR ---
NOTE NOTIFIED DR. OLMSTEAD PT IN PAIN DUE TO GRIMACING, ORDERED ONE TIME OF FENT. DR. OLMSTEAD ORDERED TYLENOL SUPPOSITORY DUE TO LOW GRADE FEVER, DR. OLMSTEAD REPORTED "WAIT TO SEE IF TEMP WORSENS BEFORE GIVING IT." DR. OLMSTEAD ORDERED NPO FOR PT DUE TO SPEECH EVAL RECCOMENDATION,
--- NOTE | 2024-10-08 19:42 | NUR ---
SHIFT SUMMARY PT RESPONDS TO PAINFUL STIMULI, PT LETHARGIC. PT GRIMMACING. DR. OLMSTEAD NOTIFIED. PT ADMITTED DUE TO SUBARACHNOID HEMORHHAGE FOLLOWING INJURY. PT ON BEDREST. PT NO LONGER IN RESTRAINTS. PT NOT COMBATIVE. PT INC. ATTENDS IN PLACE, CHANGED PRN. PT NPO, PT ON TELE. WOUND CARE DRESSING COMPLETE, XEROFORM APPLIED AND WRAPPED WITH GAUZE ON L ARM. BLOOD PRESSURE CAME DOWN AFTER FENT. ADMINISTRATION. GAVE POISEN CONTROL UPDATE ON PT CONDITION, THEY REPORTED WILL CALL TOMORROW. PT IN BED, BED IN LOWEST POSITION, CALL LIGHT IN REACH.
[2024-10-08 20:32] LABS: pH Blood Venous 7.46 (7.34-7.37)
--- NOTE | 2024-10-08 20:34 | NUR ---
PATIENT TRANSFER TO PCU 20. REPORT GIVEN TO EDWIN DIAS. PATIENT SENT FOR CT SCAN BEFORE TRANSFER. MEDICATIONS TUBED TO PCU.
[2024-10-08 21:09] LABS: BASOPHILS ABSOLUTE AUTO 0.08 K/mm3 (0.00-0.23); BASOPHILS PERCENT AUTO 0 % (0-2); EOSINOPHILS ABSOLUTE AUTO 0.57 K/mm3 (0.00-0.68); EOSINOPHILS PERCENT AUTO 2 % (0-6); Hematocrit 46.4 % (37.0-53.0); Hemoglobin 15.0 g/dL (13.5-17.5); IMMATURE GRAN ABSOLUTE AUTO 0.13 K/mm3 (0.00-0.10); IMMATURE GRAN PERCENT AUTO 1 % (0-1); LYMPHOCYTES ABSOLUTE AUTO 1.06 K/mm3 (0.84-5.20); LYMPHOCYTES PERCENT AUTO 4 % (21-46); MONOCYTES ABSOLUTE AUTO 2.76 K/mm3 (0.16-1.47); MONOCYTES PERCENT AUTO 11 % (4-13); Mean Corpuscular HGB Conc 32.3 g/dL (31.5-36.5); Mean Corpuscular Volume 92 fL (80-100); NEUTROPHILS ABSOLUTE AUTO 20.76 K/mm3 (1.96-9.15); NEUTROPHILS PERCENT AUTO 82 % (41-73); NRBC ABSOLUTE 0.00 K/mm3 (0.00-0.02); NRBC Auto 0.0 /100 WBC (0.0-0.2); Platelet Count 334 K/mm3 (150-400); RDW Coefficient Variation 15.1 % (11.7-14.2); RDW Standard Deviation 50.2 fL (35.1-46.3)
[2024-10-08 21:31] LABS: Alanine Aminotransfer (ALT/SGP 15.0 U/L (12-78); Albumin, Blood 3.2 g/dL (3.4-5.0); Albumin/Globulin Ratio 0.8 (0.8-1.8); Anion Gap 10.0 mmol/L (3-11); Aspartate Aminotrans (AST/SGOT 25.0 U/L (12-37); Bilirubin, Total 1.2 mg/dL (0.1-1.0); Blood Urea Nitrogen 17.0 mg/dL (8-24); CO2, Blood 22.0 mmol/L (21-32); Calcium, Blood 8.8 mg/dL (8.5-10.1); Chloride, Blood 110.0 mmol/L (98-108); Creatinine, Blood 0.81 mg/dL (0.60-1.20); Globulin, Blood 3.9 g/dL (2.2-4.0); Glucose, Blood 171.0 mg/dL (70-99); Potassium, Blood 4.3 mmol/L (3.5-5.5); Sodium, Blood 138.0 mmol/L (136-145); Total Protein, Blood 7.1 g/dL (6.4-8.2)
--- NOTE | 2024-10-08 21:35 | NUR ---
TRANSFER OF CARE REPORT RECEIVED FROM ATA DIAS ON MEDICAL FLOOR AT APPROX 2000. PT ARRIVES TO PCU 20 AT [address] HE IS RESPONDING TO PAINFUL STIMULI ONLY. UNABLE TO FOLLOW COMMANDS OR PARTICIPATE IN ANY MEANINGFUL COMMUNICATION. FEBRILE, CURRENT TEMPERATURE 103.1 VIA RECTAL PROBE THERMOMETER. TYLENOL ADMINISTERED RECTALLY, ICE PACKS IN PLACE BEHIND NECK, JUSTIN AXILLARY, AND GROIN. HE IS GRIMACING, TENSE, LEGS ARE RESTLESS AT TIMES. EXHIBITING RIGHT FACIAL TWITCHING AND RIGHT ARM TWITCHING FREQUENTLY. PUPILS ARE PINPOINT, 1MM. SLUGGISH, NOT ACCOMADATING. IN AFIB, HR 120'S-130'S. RADIAL AND PEDAL PULSES PALPABLE. UNABLE TO ASSESS PT FOR CHEST PAIN OR PRESSURE DUE TO DECREASED LOC. HE IS ON ROOM AIR, SATS ABOVE 90%. PT IS TACHYPNEIC WITH RR IN 30 WITH BRIEF APNEIC PERIODS. SKIN HAS VARIOS WOUNDS, SEE SHIFT ASSESSMENT FOR DETAILS. D5 NS RUNNING AT 75ML/HR INTO POWERGLIDE IN RIGHT UPPER ARM. PT IS NPO AND ON BEDREST AT THIS TIME DUE TO DECREASED LOC.
[2024-10-08] MEDS ORDERED: NS 1,000 ML IR SCH (23:35)
[2024-10-08 23:51] LABS: Influenza A/2009-H1 Not Detected (NOT DETECT); SARS-Cov-2 (COVID-19), BioFire Not Detected (NOT DETECT)
[2024-10-08 23:59] LABS: BASOPHILS ABSOLUTE AUTO 0.07 K/mm3 (0.00-0.23); BASOPHILS PERCENT AUTO 0 % (0-2); EOSINOPHILS ABSOLUTE AUTO 0.39 K/mm3 (0.00-0.68); EOSINOPHILS PERCENT AUTO 2 % (0-6); Hematocrit 46.4 % (37.0-53.0); Hemoglobin 15.0 g/dL (13.5-17.5); IMMATURE GRAN ABSOLUTE AUTO 0.12 K/mm3 (0.00-0.10); IMMATURE GRAN PERCENT AUTO 1 % (0-1); LYMPHOCYTES ABSOLUTE AUTO 1.31 K/mm3 (0.84-5.20); LYMPHOCYTES PERCENT AUTO 6 % (21-46); MONOCYTES ABSOLUTE AUTO 2.70 K/mm3 (0.16-1.47); MONOCYTES PERCENT AUTO 12 % (4-13); Mean Corpuscular HGB Conc 32.3 g/dL (31.5-36.5); Mean Corpuscular Volume 93 fL (80-100); NEUTROPHILS ABSOLUTE AUTO 18.97 K/mm3 (1.96-9.15); NEUTROPHILS PERCENT AUTO 80 % (41-73); NRBC ABSOLUTE 0.00 K/mm3 (0.00-0.02); NRBC Auto 0.0 /100 WBC (0.0-0.2); Platelet Count 324 K/mm3 (150-400); RDW Coefficient Variation 15.1 % (11.7-14.2); RDW Standard Deviation 51.8 fL (35.1-46.3)
[2024-10-09] VITALS (15 sets, daily range): BP systolic 116–179; BP diastolic 88–162
[2024-10-09] LABS: Source, Urine Straight Cath
[2024-10-09 00:16] LABS: Bilirubin, Urine Neg (Neg); Color, Urine Amber (P-Yellow); Glucose Qualitative, Urine Neg (Neg); Ketones, Urine Neg (Neg); Leukocyte Esterase, Urine 1+ (Neg); Protein, Urine 3+ (Neg); Specific Gravity, Urine 1.020 (1.003-1.022); Urobilinogen, Urine 1+ (Normal)
[2024-10-09 00:24] LABS: Alanine Aminotransfer (ALT/SGP 15.0 U/L (12-78); Albumin, Blood 3.3 g/dL (3.4-5.0); Albumin/Globulin Ratio 0.8 (0.8-1.8); Anion Gap 8.0 mmol/L (3-11); Aspartate Aminotrans (AST/SGOT 23.0 U/L (12-37); Bilirubin, Total 1.3 mg/dL (0.1-1.0); Blood Urea Nitrogen 19.0 mg/dL (8-24); CO2, Blood 26.0 mmol/L (21-32); Calcium, Blood 9.2 mg/dL (8.5-10.1); Chloride, Blood 110.0 mmol/L (98-108); Creatinine, Blood 0.95 mg/dL (0.60-1.20); Globulin, Blood 4.0 g/dL (2.2-4.0); Glucose, Blood 182.0 mg/dL (70-99); Magnesium, Blood 2.5 mg/dL (1.6-2.4); Phosphorus, Blood 2.9 mg/dL (2.5-4.9); Potassium, Blood 4.5 mmol/L (3.5-5.5); Sodium, Blood 139.0 mmol/L (136-145); Total Protein, Blood 7.3 g/dL (6.4-8.2)
--- NOTE | 2024-10-09 05:06 | NUR ---
SHIFT SUMMARY - PT REMAINS UNRESPONSIVE TO VERBAL STIMULI AND UNABLE TO FOLLOW COMMANDS. ONLY RESPONDING TO PAINFUL STIMULI. HE IS MOVING AROUND IN BED SIGNIFICANTLY MORE THAN UPON ARRIVAL, HOWEVER. HE REMAINS FEBRILE DESPITE RECTAL TYLENOL AND ICE PACKS AT JUSTIN AXILLARY, GROIN, AND BACK OF NECK. CURRENT TEMPERATURE 101.7. ON RA, SATS ABOVE 95%, RR IN 30'S WITH BRIEF APNEIC PERIODS. PT WAS BLADDER SCANNED WITH 425ML IN BLADDER. STRAIGHT CATHED AND UA SENT TO LAB. NS RUNNING AT 75ML/HR AND TO NOT EXCEED 500ML PER MD DUE TO ELEVATED BNP. PALLIATIVE CARE CONSULT PLACED.
[2024-10-09] MEDS ORDERED: Piperacillin/Tazobactam Sod 3.375 GM in NS 100 ML IV SCH (05:40)
[2024-10-09] MEDS ORDERED: NS 1,000 ML IV SCH (12:45)
[2024-10-09] MEDS ORDERED: Lidocaine 2% Jelly Uro-Jet UR ONE (14:50)
--- NOTE | 2024-10-09 15:25 | NUR ---
UPDATE 1425 AT THIS TIME BLADDER SCAN PT > 442 NOTED, PT STRAIGHT CATHED PER PROTOCOL. URINE MAROON AND BRIGHT RED. WHILE STRAIGHT CATHING MOTTLING NOTED OF BILAT LOWER EXTREMITIES. MD NOTIFIED OF MOTTLING AND BLOOD IN URINE BAG. [address] WRAY ORDERED PER MD.
--- NOTE | 2024-10-09 15:28 | NUR ---
UPDATE 1520 THIS RN ENTERED ROOM. PT NOTED TO BE SITTING AT EDGE OF BED. PT ASKED TO LAY DOWN MULTIPLE TIMES, PT UNABLE TO FOLLOW COMMANDS. ADDITIONAL STAFF CONTACTED TO ASSIST PT BACK TO BED. PT TOLERATED WELL.
[2024-10-09] MEDS ORDERED: LORazepam 2 MG/ML 1ML Injection IV STA (16:39)
[2024-10-09] MEDS ORDERED: LORazepam 2 MG/ML 1ML Injection IV ONE (17:00)
--- NOTE | 2024-10-09 18:40 | NUR ---
SHIFT SUMMARY PT RESPONNSIVE TO PAIN STIMULI ONLY THIS MORNING. PT RESPONDING TO SOUDS AND STERNAL RUBS. PT NOT FOLLOWING INSTRUCTIONS. PT AHD FEW TIMES SAYING ONE WORD TO STAFF AT RANDOM. PT WAS ABLE TO SIT HIMSELF UP AT EOB ON HIS OWN. PT TEMP ELEVATED RANGING 101.1F-102.4F; FANS, ICE AND TYLENOL SUPPOSITORY GIVEN. PT HR TACHY ALL SHIFT, SEE VITALS. PT RESP RATE LABILE RANGING 20-30'S. OTHER VSS. PT BALDDER SCANNED AND STRAIGHT CATHED THIS SHIFT, BLOOD IN URINE WITH SOME CLOTS NOTED. MD NOTIFIED AND 3 WAY WRAY OREDERED AND PLACED, CONTINUES TO HAVE BLOOD IN URINE. MOTTLING NOTED THIS AFTERNOON, MD NOTIFIED. MD TO BEDSIDE FOR ASSESSMENT. PT STARTED ON NS, SEE EMAR. PT AND DAUGHTER AT BEDSIDE THIS SHIFT, FAMILY UPDATED PT STATUS AND PLAN OF CARE. PT NOT RESPONDING TO STAFF OR FAMILY WHEN THEY ARE TALKING TO STAFF.PT UNABLE TO RECIEVE PO MEDS MYNOR TO AMS.
--- NOTE | 2024-10-09 22:13 | NUR ---
PER PT PACEMAKER PLACED BY DR. MORALES IN [place], [place]. [address].
--- NOTE | 2024-10-09 23:24 | NUR ---
CALL PLACED TO REGARDING PT SUSTAINED ELEVATED HEART RATE/RHYTHM. PHYSICIAN IS REVIEWING.
[2024-10-10] VITALS (20 sets, daily range): BP systolic 91–185; BP diastolic 77–147
[2024-10-10 04:34] LABS: BASOPHILS ABSOLUTE AUTO 0.06 K/mm3 (0.00-0.23); BASOPHILS PERCENT AUTO 0 % (0-2); EOSINOPHILS ABSOLUTE AUTO 0.04 K/mm3 (0.00-0.68); EOSINOPHILS PERCENT AUTO 0 % (0-6); Hematocrit 45.1 % (37.0-53.0); Hemoglobin 14.0 g/dL (13.5-17.5); IMMATURE GRAN ABSOLUTE AUTO 0.10 K/mm3 (0.00-0.10); IMMATURE GRAN PERCENT AUTO 1 % (0-1); LYMPHOCYTES ABSOLUTE AUTO 1.17 K/mm3 (0.84-5.20); LYMPHOCYTES PERCENT AUTO 6 % (21-46); MONOCYTES ABSOLUTE AUTO 1.98 K/mm3 (0.16-1.47); MONOCYTES PERCENT AUTO 11 % (4-13); Mean Corpuscular HGB Conc 31.0 g/dL (31.5-36.5); Mean Corpuscular Volume 96 fL (80-100); NEUTROPHILS ABSOLUTE AUTO 14.87 K/mm3 (1.96-9.15); NEUTROPHILS PERCENT AUTO 82 % (41-73); NRBC ABSOLUTE 0.00 K/mm3 (0.00-0.02); NRBC Auto 0.0 /100 WBC (0.0-0.2); Platelet Count 308 K/mm3 (150-400); RDW Coefficient Variation 15.2 % (11.7-14.2); RDW Standard Deviation 53.4 fL (35.1-46.3)
[2024-10-10 05:01] LABS: Alanine Aminotransfer (ALT/SGP 24.0 U/L (12-78); Albumin, Blood 3.2 g/dL (3.4-5.0); Albumin/Globulin Ratio 0.8 (0.8-1.8); Anion Gap 11.0 mmol/L (3-11); Aspartate Aminotrans (AST/SGOT 38.0 U/L (12-37); Bilirubin, Total 1.5 mg/dL (0.1-1.0); Blood Urea Nitrogen 24.0 mg/dL (8-24); CO2, Blood 24.0 mmol/L (21-32); Calcium, Blood 9.4 mg/dL (8.5-10.1); Chloride, Blood 118.0 mmol/L (98-108); Creatinine, Blood 0.77 mg/dL (0.60-1.20); Globulin, Blood 3.8 g/dL (2.2-4.0); Glucose, Blood 138.0 mg/dL (70-99); Potassium, Blood 4.0 mmol/L (3.5-5.5); Total Protein, Blood 7.0 g/dL (6.4-8.2)
[2024-10-10 05:02] LABS: Sodium, Blood 149.0 mmol/L (136-145)
--- NOTE | 2024-10-10 06:57 | NUR ---
PT STATUS UNCHANGED DURING SHIFT. PT REMAINED AOX0, RESTLESS. PT DID TOLERATE IV ABX AND FLUIDS. BLOOD PRESSURE AND HEART RATE LABILE. PT FEVER DID IMPROVE MODERATELY. PT DID HAVE GOOD URINARY OUTPUT 450ML, TERRANCE COLORED URINE S/P TRAUMATIC INSERTION CLEARED OF BLOOD. SEIZURE PADS AND PRECAUTIONS IN PLACE.
[2024-10-10] MEDS ORDERED: Diazepam 5 MG / ML 2ML SYR IV SCH (09:00)
[2024-10-10] MEDS ORDERED: Metoprolol Tartrate 1 MG/ML 5 ML VIAL IV ONE (09:50)
[2024-10-10] MEDS ORDERED: Metoprolol Tartrate 1 MG/ML 5 ML VIAL IV SCH (14:00)
[2024-10-10] MEDS ORDERED: Pantoprazole Sodium 40 MG Injection IV SCH (14:00)
[2024-10-10 14:25] LABS: Anion Gap 10.0 mmol/L (3-11); Blood Urea Nitrogen 25.0 mg/dL (8-24); CO2, Blood 24.0 mmol/L (21-32); Calcium, Blood 9.3 mg/dL (8.5-10.1); Chloride, Blood 121.0 mmol/L (98-108); Creatinine, Blood 0.87 mg/dL (0.60-1.20); Glucose, Blood 127.0 mg/dL (70-99); Potassium, Blood 4.8 mmol/L (3.5-5.5); Sodium, Blood 150.0 mmol/L (136-145)
--- NOTE | 2024-10-10 18:06 | NUR ---
SHIFT SUMMARY; ASSUMED CARE AT 0700. RESPONDS TO PAINFUL STIMULI ONLY, MOANS AND PULLS AWAY. ROLLS SELF ON BED AND MOVES ALL FOUR EXTREMETIES. WRAY IN PLACE DRAINING TO GRAVITY BAG. D5 STARTED PER EMAR. IV METOPROLOL FOR HR PER EMAR. ORAL CARE ATTEMPTED AND VERY DIFFICULT CLINCHES TEETH, GRABS THIS RN'S HANDS, BITES ORAL CARE SWAB. MOUTH MOISTURIZER APPLIED. SEE SKIN ASSESMENT IN CHART. SKIN TEAR OF LEFT BACK OF ARM REDRESSED. REMAINS NPO, WILL CONTINUE TO MONITOR AND TREAT UNTIL REPORT GIVEN TO NOC SHIFT RN.
[2024-10-11 04:25] VITALS: BP 104/53
[2024-10-11 05:05] LABS: Hematocrit 43.3 % (37.0-53.0); Hemoglobin 13.8 g/dL (13.5-17.5); Mean Corpuscular HGB Conc 31.9 g/dL (31.5-36.5); Mean Corpuscular Volume 95 fL (80-100); NRBC ABSOLUTE 0.00 K/mm3 (0.00-0.02); NRBC Auto 0.0 /100 WBC (0.0-0.2); Platelet Count 289 K/mm3 (150-400); RDW Coefficient Variation 15.4 % (11.7-14.2); RDW Standard Deviation 54.0 fL (35.1-46.3)
[2024-10-11 05:41] LABS: Alanine Aminotransfer (ALT/SGP 30 U/L (12-78); Albumin, Blood 3.0 g/dL (3.4-5.0); Albumin/Globulin Ratio 0.8 (0.8-1.8); Anion Gap 6 mmol/L (3-11); Aspartate Aminotrans (AST/SGOT 34 U/L (12-37); Bilirubin, Total 1.1 mg/dL (0.1-1.0); Blood Urea Nitrogen 18 mg/dL (8-24); CO2, Blood 26 mmol/L (21-32); Calcium, Blood 8.8 mg/dL (8.5-10.1); Chloride, Blood 120 mmol/L (98-108); Creatinine, Blood 0.72 mg/dL (0.60-1.20); Globulin, Blood 3.8 g/dL (2.2-4.0); Glucose, Blood 124 mg/dL (70-99); Potassium, Blood 3.5 mmol/L (3.5-5.5); Sodium, Blood 148 mmol/L (136-145); Total Protein, Blood 6.8 g/dL (6.4-8.2)
[2024-10-11 05:59] VITALS: BP 119/106
--- NOTE | 2024-10-11 06:52 | NUR ---
SHIFT SUMMARY: PT IS SOMNOLENT, RESPONDS TO PHYSICAL STIMULI. DOES NOT FOLLOW COMMANDS. VSS ON RA. AFIB 110'S-120'S. WHEN ASKED IF PT WAS IN PAIN, HE STATED "NO". PT REMAINS NPO. ORAL CARE COMPLETED. X2 ASSIST WITH REPOSITIONS. NOOB THIS SHIFT, REPOSITION TOLERATED. PT IS FREQUENTLY MOVING HIMSELF AROUND IN BED. WARY CATHETER DRAINING ADEQUATE AMOUNTS OF TERRANCE COLORED URINE TO GRAVITY. NO BM THIS SHIFT, BRIEF IN PLACE. BED IN LOWEST POSITION, CALL LIGHT WITHIN REACH. SEIZURE PRECAUTIONS IN PLACE. BED ALARM SET FOR PT'S SAFETY. FREQUENT ROUNDING COMPLETE.
[2024-10-11 07:01] VITALS: BP 118/91
[2024-10-11] MEDS ORDERED: TPN Consult Notification IV ONE (12:00)
[2024-10-11] MEDS ORDERED: D5W-1/2NS 1,000 ML IV SCH (12:25)
[2024-10-11 13:03] VITALS: BP 101/78
[2024-10-11 15:39] VITALS: BP 119/99
[2024-10-11] MEDS ORDERED: Parenteral Electolytes 40 ML,Potassium Phosphate Dibasic 30 MM,Multivitamins 10 ML,ZINC... IV SCH (17:00)
--- NOTE | 2024-10-11 17:53 | NUR ---
SHIFT SUMMARY; ASSUMED CARE AT 0700. REPSPONDS TO PAINFUL STIMULI AND VOICE AT TIMES. MUMBLED WORDS DURING SHIFT INTERMITANTLY. BED BATH TODAY WITH LINEN CHANGE AND ORAL CARE. PPN STARTED PER EMAR, REMAINS NPO. VSS, MOVES SELF ON BED FROM SIDE TO SIDE AND MOVES ALL FOUR EXTREMETIES. WRAY IN PLACE DRAINING TO GRAVITY BAG. WILL CONTINUE TO MONITOR AND TREAT UNTIL CHANGE OF SHIFT AND REPORT TO NOC SHIFT RN.
[2024-10-11 20:32] VITALS: BP 92/79
[2024-10-12 00:04] VITALS: BP 147/88
[2024-10-12 03:59] VITALS: BP 147/105
[2024-10-12 04:18] LABS: Hematocrit 43.1 % (37.0-53.0); Hemoglobin 13.8 g/dL (13.5-17.5); Mean Corpuscular HGB Conc 32.0 g/dL (31.5-36.5); Mean Corpuscular Volume 93 fL (80-100); NRBC ABSOLUTE 0.00 K/mm3 (0.00-0.02); NRBC Auto 0.0 /100 WBC (0.0-0.2); Platelet Count 198 K/mm3 (150-400); RDW Coefficient Variation 14.9 % (11.7-14.2); RDW Standard Deviation 50.9 fL (35.1-46.3)
[2024-10-12 04:39] LABS: Anion Gap 8 mmol/L (3-11); Blood Urea Nitrogen 17 mg/dL (8-24); CO2, Blood 23 mmol/L (21-32); Calcium, Blood 8.3 mg/dL (8.5-10.1); Chloride, Blood 119 mmol/L (98-108); Creatinine, Blood 0.64 mg/dL (0.60-1.20); Glucose, Blood 138 mg/dL (70-99); Magnesium, Blood 2.2 mg/dL (1.6-2.4); Phosphorus, Blood 2.6 mg/dL (2.5-4.9); Potassium, Blood 3.8 mmol/L (3.5-5.5); Sodium, Blood 146 mmol/L (136-145); Triglycerides 160 mg/dL (30-160)
[2024-10-12 07:24] VITALS: BP 142/87
--- NOTE | 2024-10-12 07:46 | NUR ---
SHIFT SUMMARY: PT IS LETHARGIC, RESPONDS TO VERBAL STIMULI. PT IS ORIENTED TO SELF ONLY, ABLE TO TELL ME HIS NAME AND BIRTHDAY. DOES NOT FOLLOW COMMANDS. VSS ON RA. AFIB 110'S-120'S. WHEN ASKED IF PT WAS IN PAIN, HE STATED "YES, I AM OLD", MEDICATED WITH PRN NE TYLENOL. PT REMAINS NPO, PPN INFUSING AT 95ML/HR. ORAL CARE COMPLETED. X2 ASSIST WITH REPOSITIONS. PT ATTEMPTED TO GET OOB, HIS BED ALARMED, AND THIS RN FOUND HIM STANDING AT BEDSIDE. PT IS RESTLESS AND FREQUENTLY MOVING HIMSELF AROUND IN BED. WHEN THIS RN WAS ON LUNCH, PT WAS FOUND TO BE ON ALL FOURS IN BED, REFUSING TO LAY BACK DOWN, WAS IRRITABLE, AND NOT FOLLOWING COMMANDS. PRN IM ZYPREXA GIVEN WITH LITTLE EFFECT. WRAY CATHETER DRAINING ADEQUATE AMOUNTS OF TERRANCE COLORED URINE TO GRAVITY. NO BM THIS SHIFT, BRIEF IN PLACE. BED IN LOWEST POSITION, CALL LIGHT WITHIN REACH. SEIZURE PRECAUTIONS IN PLACE. BED ALARM SET FOR PT'S SAFETY. FREQUENT ROUNDING COMPLETE.
[2024-10-12] MEDS ORDERED: Furosemide 10 MG / ML 2ML Vial IV SCH (09:00)
[2024-10-12 11:45] VITALS: BP 164/122
--- NOTE | 2024-10-12 13:08 | NUR ---
LITHIUM MED CHANGE: DUE TO PATIENT BEING ON SWALLOW PRECAUTIONS OF BREAK/OPEN/CRUSH PILLS CALL TO PHARMACY, UNABLE TO CRUSH/OPEN, EQUIVALENT FOR DOSE WOULD BE 300MG OF THE 150 CAPS THAT CAN BE OPENED TID, SPOKE WITH HOSPITALIST, OK TO CHANGE. UPDATED ON SITUATION, 1:1 SITTER AT BEDSIDE.
[2024-10-12 17:41] VITALS: BP 142/103
--- NOTE | 2024-10-12 18:25 | NUR ---
SHIFT SUMMARY; ASSUMED CARE AT 0700, OPENS EYES AND WAKES TO VERBAL STIMULI. ANSWERS QUESTIONS AND AT TIMES FOLLOWS DIRECTIONS. MOVES SELF ON BED, INCREASINLY T/O DAY BECOMES DIFFICULT TO DIRECT AND ATTEMPTING TO CLIMB OUT OF BED. ONE TO ONE SITTER INTITATED, CONTINUES TO ATTEMPT TO CRAWL OUT OF BED, RICHELLE VEST PLACED AND SITTER REMAINS WITH PT. EVALUATED BY SPEECH TODAY, EATING PUREE DIET AND THICKENED PO FLUIDS, TOLERATING WELL. WRAY DC'D, WILL CONTINUE TO MONITOR FOR URINE OUTPUT. MEDS CRUSHED IN APPLESAUCE, TOLERATED WELL. VSS, DRESSING TO LEFT UPPER ARM CHANGED PER ORDERS, SEE SKIN ASSESMENTS AND PHOTOS IN CHART FOR SKIN ASSESMENTS. WILL REPORT TO NOC SHIFT RN TO ASSUME CARE.
[2024-10-12 20:49] VITALS: BP 141/89
[2024-10-13] VITALS (7 sets, daily range): BP systolic 113–154; BP diastolic 72–105
[2024-10-13 04:09] LABS: Hematocrit 44.6 % (37.0-53.0); Hemoglobin 14.0 g/dL (13.5-17.5); Mean Corpuscular HGB Conc 31.4 g/dL (31.5-36.5); Mean Corpuscular Volume 95 fL (80-100); NRBC ABSOLUTE 0.00 K/mm3 (0.00-0.02); NRBC Auto 0.0 /100 WBC (0.0-0.2); Platelet Count 290 K/mm3 (150-400); RDW Coefficient Variation 14.9 % (11.7-14.2); RDW Standard Deviation 51.8 fL (35.1-46.3)
[2024-10-13 04:36] LABS: Anion Gap 9.0 mmol/L (3-11); Blood Urea Nitrogen 13.0 mg/dL (8-24); CO2, Blood 28.0 mmol/L (21-32); Calcium, Blood 8.7 mg/dL (8.5-10.1); Chloride, Blood 116.0 mmol/L (98-108); Creatinine, Blood 0.81 mg/dL (0.60-1.20); Glucose, Blood 108.0 mg/dL (70-99); Magnesium, Blood 2.2 mg/dL (1.6-2.4); Phosphorus, Blood 3.2 mg/dL (2.5-4.9); Potassium, Blood 4.0 mmol/L (3.5-5.5); Sodium, Blood 149.0 mmol/L (136-145)
--- NOTE | 2024-10-13 07:24 | NUR ---
SHIFT SUMMARY: PT IS LETHARGIC, RESPONDS TO VERBAL STIMULI. PT IS ORIENTED TO SELF ONLY, ABLE TO TELL ME HIS NAME AND BIRTHDAY. DOES NOT FOLLOW COMMANDS. VSS ON RA. AFIB 90'S-110'S. WHEN ASKED IF PT WAS IN PAIN, HE STATED "NO". PT TOLERATING A PUREED DIET WITH MIDLY THICK LIQUIDS. HE TAKES HIS PILLS CRUSHED IN APPLESAUCE. ORAL CARE COMPLETED. X2 ASSIST WITH REPOSITIONS. PT IS RESTLESS IN BED. 1:1 SITTER AT BEDSIDE. RICHELLE VEST IN PLACE. PT WAS NOT ABLE TO VOID, STRAIGHT CATHETER DRAINED >600 MLS OF TERRANCE COLORED URINE. ONE INCONTINENT, SOFT BM THIS SHIFT, BRIEF IN PLACE AND CHANGED NEEDED. BED IN LOWEST POSITION, CALL LIGHT WITHIN REACH. SEIZURE PRECAUTIONS IN PLACE.
[2024-10-13] MEDS ORDERED: Multivitamins 1 Tab PO SCH (09:00)
--- NOTE | 2024-10-13 10:27 | NUR ---
PT HAS BEEN STATING HE NEEDS TO URINATE, BUT ONLY GET DRIBBLES OUT. DID A BLADDER SCAN AND IT SHOWED 315ML. NOTIFIED DR. SOMERS AND HE WANTS US TO CONTINUE DOING BLADDER SCANS UNTIL RESIDUAL IS >500. HE IS ALSO PUTTING AN ORDER FOR TAMSULOSIN IN.
--- NOTE | 2024-10-13 14:44 | NUR ---
discussed case with provider. rounded on pt he was asleep and appeared comfortable. attempted to call patients spouse ramses
--- NOTE | 2024-10-13 17:34 | NUR ---
PT IS A&Ox2 AND ABLE TO MAKE MOST NEEDS KNOWN. HE IS ON RA W/O2 SATS > 92%. HE IS A x2 ASSIST IN THE BED AND HE'S ON BEDREST D/T BEING IMPULSIVE. THERE IS A 1:1 SITTER D/T THE IMPULSIVENESS. HE HAS BEEN HAVING URINARY RETENTION, BUT WAS ABLE TO VOID 440ML @ ONCE. NO OTHER NEEDS OR CONCERNS NOTED @ THIS TIME. BED IN LOW POSITION, BED ALARM ON, SITTER IN ROOM, AND CALL LIGHT IN REACH.
--- NOTE | 2024-10-13 22:11 | NUR ---
PATIENT WAS MADE MED/TELE STATUS THIS EVENING AND IS BEING MOVED TO ROOM 350. REPORT WAS GIVEN TO MEDICAL FLOOR NURSE HARDY Carlson. AFTER REPORT WAS GIVEN, HARDY DIAS HAD NO FURTHER QUESTIONS COMMENTS OR CONCERNS AT THIS TIME. PATIENT HAS ALL PERSONAL ITEMS IN THE ROOM GATHERED AND WITH HIM WELL MEDICATIONS. PATIENTS SITTER WAS ALSO MOVED WITH PATIENT. PATIENT WAS MOVED VIA BED AT 2230 WITH ALL ITEMS SAID ABOVE.
[2024-10-13] MEDS ORDERED: NS 250 ML IV PRN (22:25)
--- NOTE | 2024-10-13 22:31 | NUR ---
CALLED XOCHILT ANGUIANO THE SPOUSE THAT PATIENT WAS MOVED TO ROOM 350 NOW. XOCHILT WAS GRATEFUL FOR THE UPDATE.
[2024-10-14] VITALS (10 sets, daily range): BP systolic 96–208; BP diastolic 58–186
--- NOTE | 2024-10-14 04:30 | NUR ---
SHIFT SUMMARY PATIENT IS ALERT AND ORIENTED TO SELF ONLY. PATIENT HAS HAD NO ACUTE EVENTS THIS SHIFT. VITAL SIGNS REVIEWED. PATIENT HAS BEEN TRANSFERRED FROM [id number] TO MEDICAL FLOOR EARLIER IN SHIFT. NOTIFIED OF TRANSFER. PATIENT HAS BEEN IN RESTRAINTS DUE TO PATIENT UNSAFELY PULLING AT LINES AND GETTING OUT OF BED. PATIENT HAS HAD WRAY PLACED BY BN FOR BLADDER SCAN GREATER THAN DR ORDER FOR WRAY PLACEMENT. PATIENT HAS HAD NO COMPLAINTS OF PAIN, NAUSEA, SOB OR VOMITTING THIS SHIFT. BED IN LOCKED AND LOWEST POSITION. SITTER IN PLACE.
[2024-10-14 07:11] LABS: Anion Gap 9.0 mmol/L (3-11); Blood Urea Nitrogen 11.0 mg/dL (8-24); CO2, Blood 26.0 mmol/L (21-32); Calcium, Blood 8.7 mg/dL (8.5-10.1); Chloride, Blood 113.0 mmol/L (98-108); Creatinine, Blood 0.67 mg/dL (0.60-1.20); Glucose, Blood 99.0 mg/dL (70-99); Magnesium, Blood 2.1 mg/dL (1.6-2.4); Phosphorus, Blood 2.8 mg/dL (2.5-4.9); Potassium, Blood 3.5 mmol/L (3.5-5.5); Sodium, Blood 144.0 mmol/L (136-145)
--- NOTE | 2024-10-14 11:17 | NUR ---
left ue wound care LEFT UE WOUND MEDIAL BICEPT CARE DONE. REMOVED THE DRIED ON XEROFORM FROM PT MEDIAL UE WOUNDS USING WOUND SECTION GANG. WOUNDS VERY TENDER. NO ODOR OR DRAINAGE NOTED. REDRESSED WITH XEROFORM. PLACED A PINK FOAM OVER THE XEROFORM TO PAD THE AREA AND PROTECT FROM RUBBING. CURLEX USED. OVER WITH STOCKENETTE. CARE ONGOING.
--- NOTE | 2024-10-14 12:37 | NUR ---
ALTERED LOC WENT TO WAKE PT UP FOR LUNCH. PT WAS UNABLE TO AROUSE. ARAMIS BUT PIN POINT. BP LOW FOR PT. AFIB 70'S ON MONITOR. TEMP 97.3. RECENT DEMADEX ORALLT AT @1100. CALLED DR SOMERS TO NOTIFY HIM. ORDER FOR HEAD CT OBTAINED. CURRENT BP 103/66. PT MORE AROUSABLE. CARE ONGOING.
--- NOTE | 2024-10-14 13:26 | NUR ---
CT HEAD PT TRANSFER TO CT WITH NEW CLIENT BANKING SERVICES CLERK IN ATTENDANCE. CARE ONGOING.
--- NOTE | 2024-10-14 13:56 | NUR ---
ROUNDED ON PT THIS AM. HE WAS SLEEPING DURING MY VISIT. CALLED SPOUSE AND LEFT VM
--- NOTE | 2024-10-14 14:16 | NUR ---
LOC PT AWAKE. ALERT. PINK, WARM ANDDRY. AFIB. HR 78BPM. JUST DRANK A CUP OF THICKENED WATER BY SPOON. TRYING TO MOVE LEGS OVER RAILS. BILATERAL WRIST RESTRAINTS ON. SEIZURE PADS ON TOP/BOTTOM RAILS. BED LOW AND LOCKED. CARE ONGOING.
--- NOTE | 2024-10-14 17:17 | NUR ---
MET WITH PATIENT AND HIS SPOUSE. PATIENT IS NOT DECISIONAL AT THIS TIME. DISCUSSED HIS POOR PROGNOSIS WITH SPOUSE. DISCUSSED CODE STATUS AND IMPLICATIONS OF CHEST COMPRESSIONS. PROVIDER TO THE ROOM AND DISCUSSED PATINTS OVERALL PROGNOSIS, CODE STATUS, AND POSIBILITY OF PATIENTS NEW BASELINE. PATIENTS SPOUSE HAS A POOR UNDERSTANDING OF PATIENTS STATUS. SHE UNDERSTANDS THAT SHE IS IN THE POSITION TO MAKE HIS MEDICAL DECISION AT THIS TIME DUE TO HIS MENTATION. SHE WOULD LIKE TO KEEP HIM A FULL CODE AT THIS TIME. EXPRESSED THE IMPORTANCE OF HER BEING AVALIABLE BY PHONE TO PROVIDE US GUIADANCE AND PLANNING FOR DISCHARGE.
--- NOTE | 2024-10-14 17:24 | NUR ---
NOTE PT ALERT. BILATERAL WRIST RESTRAINTS. HERE TO VISIT WITH PT. MET WITH PALLEXUSIVE CARE AND DR SOMERS. AGREEABLE TO CHANGE CODE STATUS TO DNR. POLST FILLED OUT. VSS. WRAY PATENT DRAINING CLEAR, YELLOW URINE. RESPOTIONED FREQUENTLY. PT WIGGLES AROUND. LIKES TO HAVE HIS FEET ON THE FOOT BOARD. MEDCIATED WITH TYLENOL FOR FACE/HEAD PAIN. CARE ONGOING.
[2024-10-14] MEDS ORDERED: CefTRIAXone Sodium 1,000 MG in NS 100 ML IV SCH (21:00)
[2024-10-15] VITALS (9 sets, daily range): BP systolic 92–150; BP diastolic 54–111
[2024-10-15 05:59] LABS: Hematocrit 44.3 % (37.0-53.0); Hemoglobin 13.8 g/dL (13.5-17.5); Mean Corpuscular HGB Conc 31.2 g/dL (31.5-36.5); Mean Corpuscular Volume 95 fL (80-100); NRBC ABSOLUTE 0.00 K/mm3 (0.00-0.02); NRBC Auto 0.0 /100 WBC (0.0-0.2); Platelet Count 193 K/mm3 (150-400); RDW Coefficient Variation 14.6 % (11.7-14.2); RDW Standard Deviation 50.5 fL (35.1-46.3)
--- NOTE | 2024-10-15 06:20 | NUR ---
SHIFT SUMMARY PT SLEPT SHORT INTERVALS DURING THE NIGHT. CONTINUES TO PULL AT TUBES AND CORDS, TRY TO GET OUT OF BED, AND GET AGITATED. BILATERAL WRIST RESTRAINTS REMAIN. ABLE TO REDIRECT PATIENT, BUT NOT FOR LONG. PT ORIENTED TO SELF AND , WHEN SHE VISITED. PT DRINKIING THICKENED LIQUIDS VIA SPOON- REFUSED PUREED DINNER. PT DOES NOT LIKE APPLESAUCE, SO MEDICATIONS CRUSHED AND MIXED WITH THICKENED JUICE. PT REPOSITIONED THROUGHOUT THE NIGHT, AND ROM PERFORMED WITH BILATERAL ARMS. DRESSING CHANGED TO LEFT UPPER ARM PER ORDER. TEGADERM PLACED TO RIGHT FOREARM WHERE HIS ARM BAND WAS TIGHT AND FORMED AN ABRASION. MEDICATED WITH TYLENOL FOR FLACC SCALE OF 4 PER EMAR. SEIZURE PADS ON SIDERAILS.
[2024-10-15 06:35] LABS: Albumin, Blood 2.8 g/dL (3.4-5.0); Anion Gap 7 mmol/L (3-11); Blood Urea Nitrogen 11 mg/dL (8-24); CO2, Blood 26 mmol/L (21-32); Calcium, Blood 8.7 mg/dL (8.5-10.1); Chloride, Blood 112 mmol/L (98-108); Creatinine, Blood 0.72 mg/dL (0.60-1.20); Glucose, Blood 103 mg/dL (70-99); Magnesium, Blood 2.2 mg/dL (1.6-2.4); Phosphorus, Blood 2.6 mg/dL (2.5-4.9); Potassium, Blood 3.4 mmol/L (3.5-5.5); Sodium, Blood 142 mmol/L (136-145)
--- NOTE | 2024-10-15 16:18 | NUR ---
CASE CONFRENCE- UPDATED PROVIDER ON CONVERSATION FROM PRIOR DAY. PROVIDER WILL READDRESS PLAN WITH WEEKEND.
--- NOTE | 2024-10-15 17:22 | NUR ---
SHIFT SUMMARY PT A&OX1, VSS, TOLERATING MINIMAL PO, VOIDING, AND DENIED PAIN. PT CONT TO BE CONFUSED AND IMPULSIVE. PT ATTEMPTED TO PULL AT LINES AND AMB OOB UNSAFELY T/O SHIFT, RESTRAINTS REMAIN IN PLACE. K LOW THIS AM, ORAL K GIVEN PER ORDER. NO OTHER ACUTE CHANGES. CALL LIGHT WITHIN REACH AND BED ALARM ON FOR SAFETY.
[2024-10-16 03:05] VITALS: BP 137/71
--- NOTE | 2024-10-16 05:04 | NUR ---
SHIFT SUMMARY PT REMAINS IN BILAT SOFT WRIST RESTRAINTS. CONTINUES TO PULL AT TUBES AND WIRES, AND TRIES TO GET LEGS OVER SIDERAIL. PT PULLED OUT WRAY CATHETER. ORDER TO KEEP WRAY OUT AND BLADDER SCAN PRN. PT DID NOT SLEEP AT ALL DURING THE NIGHT. HE DOES APPEAR MORE ALERT THAN PREVIOUS NIGHT AND IS ABLE TO FOLLOW COMMANDS AND ANSWER MOST QUESTIONS, BUT DOES NOT REMEMBER SAFETY INSTRUCTIONS.
[2024-10-16 07:19] VITALS: BP 142/77
[2024-10-16 11:52] VITALS: BP 113/63
[2024-10-16 15:12] VITALS: BP 144/87
--- NOTE | 2024-10-16 17:29 | NUR ---
SHIFT SUMMARY: A&O TO SELF. PT IS CONFUSED, BUT REDIRECTABLE AT TIMES. RESTRAINTS AND TELEMETRY D/C THIS MORNING. PT TOLERATING OK, BUT CONTINUES TO GET OUT OF BED AND PICK AT DRESSINGS. MEDICATED PER EMAR. REPOSITIONED Q2 HOURS. LYING IN BED AT THIS TIME. BED LOCKED AND IN THE LOWEST POSITION. BED ALARM SET FOR SAFETY.
[2024-10-16 20:17] VITALS: BP 113/84
[2024-10-17 03:19] VITALS: BP 154/46
--- NOTE | 2024-10-17 05:20 | NUR ---
SHIFT SUMMARY PT ORIENTED TO SELF ONLY. RESTRAINTS REMAIN OFF. PT IMPULSIVE AND ATTEMPTING TO GET OOB MULTIPLE TIMES, PULLED OFF DRESSING TO LEFT UPPER ARM, PULLED OFF ARM BAND, AND REPEATEDLY REMOVES GOWN AND COVERS. PT ABLE TO BE REDIRECTED SOMETIMES, BUT DOES NOT RETAIN INFORMATION. OTHER TIMES IT IS DIFFICULT TO REDIRECT PT. PT TOOK OFF HIS WEDDING RING MULTIPLE TIMES. WEDDING RING PLACED IN SPECIMEN CUP AND PUT AT BEDSIDE FOR SAFE KEEPING. PT CONTINENT AND INCONTINENT OF BLADDER AND INCONTINENT OF BOWEL DURING THE NIGHT. CHANGED AND CLEANED NEEDED. PT ABLE TO SLEEP FOR A COUPLE OF HOURS DURING THE NIGHT. ZYPREXA GIVEN PER EMAR FOR AGITATION.
[2024-10-17 07:40] VITALS: BP 133/84
[2024-10-17 11:31] VITALS: BP 114/98
[2024-10-17 15:53] VITALS: BP 118/72
--- NOTE | 2024-10-17 16:53 | NUR ---
SHIFT SUMMARY: A&O TO SELF AND VERY FORGETFUL. PT IS REDIRECTABLE. SPOUSE IN TO VISIT PT TODAY AND HE COULD NOT STATE WHO SHE WAS OR THEIR RELATIONSHIP. PT WAS VERY DROWSY AT THE BEGINNING OF SHIFT, BUT AROUND 1130 HE BEGAN TO WAKE UP. ONCE AWAKE, PT BEGAN ATTEMPTING TO GET OUT OF BED MULTIPLE TIMES UNSAFELY. LYING IN BED AT THIS TIME. BED LOCKED AND IN THE LOWEST POSITION. CALL LT WITHIN REACH.
[2024-10-17 20:02] VITALS: BP 154/101
[2024-10-18 03:21] VITALS: BP 131/93
[2024-10-18 03:22] VITALS: BP 131/93
--- NOTE | 2024-10-18 05:31 | NUR ---
SHIFT SUMMARY PT INTERMITTENTLY RESTLESS/IMPULSIVE DURING THE NIGHT. ATTEMPTED UNSAFELY OOB MULTIPLE TIMES, AND TRIES TO SCOOT OUT FROM THE BOTTOM OF THE BED. PT REDIRECTABLE, BUT DOES NOT RETAIN INFORMATION. BED ALARM ON FOR SAFETY. PT WITH MULTIPLE SOFT INCONTINENT STOOLS DURING THE NIGHT. PT CONT/INCONT OF URINE. ASSISTED PT WITH THICKENED PO FLUIDS DURING THE NIGHT. PT TURNS INDEPENDENTLY IN BED. SLEPT INTERMITTENTLY.
[2024-10-18 07:14] VITALS: BP 135/71
[2024-10-18 16:07] VITALS: BP 108/65
--- NOTE | 2024-10-18 18:04 | NUR ---
SHIFT SUMMARY A&O TO SELF AND SPOUSE, PLEASANT AND COOPERATIVE W/CARES, HAS ATTEMPTED TO BED EXIT A FEW TIMES BUT BOTH WERE TO USE THE BATHROOM, VSS, DENIES PAIN, WOUND CARE DONE THIS SHIFT, SPOUSE AT BEDSIDE, EATING DINNER AT THIS TIME W/INDUSTRIAL SAFETY AND HEALTH SPECIALIST ASSIST, CALL LIGHT IN REACH, BED ALARM ACTIVE, WILL CONT TO MONITOR UNTIL REPORT GIVEN TO ONCOMING NURSE.
[2024-10-18 19:23] VITALS: BP 82/44
[2024-10-18 19:56] VITALS: BP 117/87
--- NOTE | 2024-10-19 00:51 | NUR ---
BLADDER SCAN PERFORMED DUE TO PT INABILITY TO URINATE USING URINAL X3. LOWER ABD SOFT ON PALPATION AND PT DENIES PAIN. BLADDER SCAN PERFORMED AND SHOWED 395 MLS. WILL CONTINUE TO MONITOR PER PROTOCOL.
[2024-10-19 04:14] VITALS: BP 102/64
--- NOTE | 2024-10-19 05:13 | NUR ---
CHART SUMMARY A&OX1 TO SELF ONLY. ABLE TO ANSWER QUESTIONS AND MAKE NEEDS KNOWN BUT TALK IS OFTEN NON-SENSICAL. HE SLEPT FOR A COUPLE OF HOURS AND THEN BECAME AGITATED. PT ATTEMPTED MULTIPLE TIMES TO URINATE IN URINAL BUT WAS UNABLE TO. PT BLADDER SCANNED AND SHOWED >400 ML. PROVIDER CALLED AND RECEIVED ORDER TO STRAIGHT CATH PT. 500 MLS TERRANCE COLORED URINE REMOVED VIA STRAIGHT CATH. POST VOID BLADDER SCAN SHOWED NO RESIDUAL URINE. PT BECAME AGITATED WITH CATHETER PLACEMENT BUT TOLERATED IT. PT WAS EASILY REDIRECTED BUT ATTEMPTED TO GET UP ON HIS OWN MULTIPLE TIMES. BED ALARM ON AND SIDE RAILS X3. PT DRINKING THICKENED LIQUIDS WELL. CURRENTLY PT IS SLEEPING IN BED AT LOWEST POSITION WITH SIDE RAILS UP X3 AND CALL LIGHT WITHIN REACH.
[2024-10-19 15:04] VITALS: BP 94/61
--- NOTE | 2024-10-19 17:41 | NUR ---
SHIFT SUMMARY A&OX1, VSS, DENIES PAIN THIS SHIFT, UP TO BSC W/2 PERSON ASSIST SEVERAL TIMES THIS SHIFT, STRAIGHT CATH X1 W/650 MLS OUT, PT TOLERATED WELL, BEDRESTING AT THIS TIME CALL LIGHT IN REACH, BED ALARM ACTIVE, WILL CONT TO MONITOR UNTIL REPORT GIVEN TO ONCOMING NURSE.
[2024-10-19 19:54] VITALS: BP 111/95
[2024-10-20 04:31] VITALS: BP 122/78
--- NOTE | 2024-10-20 05:02 | NUR ---
SHIFT SUMMARY A&O X1-3. CONFUSED. ABLE TO ANSWER QUESTIONS BUT TALK IS OFTEN NON-SENSICAL OR PT CANNOT FIND THE WORDS TO DESCRIBE WHAT HE IS NEEDING. ATTEMPTED PT TO URINATE IN BSC BUT PT COULD NOT GO. BLADDER SCAN SHOWED <200 MLS PRESENT. AROUND 0515 PT WAS ABLE TO GET UP TO BSC AND URINATED 300 MLS TERRANCE COLORED URINE. PT THEN STARTED TALKING ABOUT A "RAT" THAT WAS ON THE WALL IN FRONT OF HIM THAT WAS NOT THERE. PT VERY PLEASANT AND COOPERATIVE WITH CARE. CURRENTLY SITTING UP IN BED AT LOWEST POSITION WITH RAILS X2 AND CALL LIGHT WITHIN REACH.
[2024-10-20 07:39] VITALS: BP 127/70
[2024-10-20 09:22] LABS: Anion Gap 7.0 mmol/L (3-11); Blood Urea Nitrogen 17.0 mg/dL (8-24); CO2, Blood 32.0 mmol/L (21-32); Calcium, Blood 9.2 mg/dL (8.5-10.1); Chloride, Blood 101.0 mmol/L (98-108); Creatinine, Blood 0.87 mg/dL (0.60-1.20); Glucose, Blood 108.0 mg/dL (70-99); Potassium, Blood 3.6 mmol/L (3.5-5.5); Sodium, Blood 136.0 mmol/L (136-145)
--- NOTE | 2024-10-20 16:27 | NUR ---
PT'S CALLED TODAY, SHE IS UNAWARE THAT PT NO LONGER HAS A SNF RECOMMENDATION. ATTEMPTED TO RETURN HER CALL, LEFT A VOICEMAIL. THE PATIENT IS MORE APPROPRIATE FOR HOSPICE AT THIS TIME, BUT HAVE NOT HAD THE OPPORTUNITY TO DISCUSS THAT WITH HER YET. PLAN TO DISCUSS WHEN WE SPEAK AGAIN, HOPEFUL FOR TOMORROW MORNING.
--- NOTE | 2024-10-20 16:53 | NUR ---
SPOKE WITH PT'S BY PHONE, SHE STATES SHE IS READY TO CHANGE PT'S STATUS TO COMFORT CARE. SHE RECOGNIZES THE PT ISN'T IMPROVING, AND ISN'T LIKELY TO AT THIS POINT. WILL F/U WITH PHYSICIAN, CHANGE TO COMFORT CARE.
[2024-10-20] MEDS ORDERED: Morphine Sulfate 20 MG/1ML 1 ML Oral Syringe SL PRN (17:00)
--- NOTE | 2024-10-20 18:20 | NUR ---
SHIFT SUMMARY PATIENT A/OX2-3. PLEASANT AND COOPERATIVE WITH CARE, CONFUSED, FORGETFUL, AND IMPULSIVE. STRAIGHT CATH X1 THIS SHIFT AROUND 1200, BLADDER SCAN AT 1820 SHOWED 170 ML, THEN PATIENT VOIDED INDEPENDENTLY. PATIENT TRASNITIONED TO COMFORT CARE THIS EVENING. DRESSING TO LEFT UPPER ARM CHANGED PER ORDER. AT BEDSIDE CURRENTLY. NO OTHER CONCERNS AT THIS TIME, WILL CONTINUE TO MONITOR.
--- NOTE | 2024-10-21 04:38 | NUR ---
SHIFT SUMMARY A&OX2 TO SELF AND . COMFORT CARE. VERY AGITATED THROUGHOUT SHIFT. PT ATTEMPTED MULTIPLE TIMES TO URINATE BUT COULD NOT. PT BLADDER SCANNED AND >400 MLS PRESENT. OBTAINED ORDERS FROM DR. DAN TO STRAIGHT CATH PT. PT WILL NOT TOLERATE PERMANENT WRAY DUE TO PULLING IT OUT AND INCREASED AGITATION. 450 MLS REMOVED FROM BLADDER WITH STRAIGHT CATH. PT TOLERATED THIS WELL. CONTINUES TO DRINK THICKENED LIQUIDS WELL, SITTING UP AT 90 DEGREES. AGITATION INCREASED THROUGHOUT THE NIGHT AND UNABLE TO BE REDIRECTED. PT MEDICATED PER EMAR. TOLERATED WELL AND WAS FINALLY ABLE TO REST COMFORTABLY. CURRENTLY PT RESTING IN HIS BED WITH RAILS X2, BED AT LOWEST POSITION AND CALL LIGHT WITHIN REACH.
--- NOTE | 2024-10-21 11:00 | NUR ---
RCV'D CALL FROM BEDSIDE RN RE: AGGITATION AND IMPULSIVITY SYMPTOMS. PT HAS BEEN GETTING 1 MG ATIVAN WITH MILD RELIEF. REVIEWED EMAR AND CARE WITH BEDSIDE RN AND PROVIDER. RECOMMENDATION: INCREASE ATIVAN DOSE FROM 1 MG TO 2 MG ORDERED. PC TO REMAIN AVAILABLE NEEDED.
--- NOTE | 2024-10-21 16:22 | NUR ---
ROUNDED ON PT THIS AFTERNOON. PATIENT WAS SITTING UP TO THE EDGE OF THE BED. DISCUSSED CASE WITH BSRN
--- NOTE | 2024-10-22 06:01 | NUR ---
SALON SHAMPOO ASSISTANT SUMMARY NO ACUTE CHANGES. PT ON CC. PT ROUNDED ON IN REGULAR INTERVALS AND ASSISTED WITH HYDRATION T/O THE SHIFT; PT GETTING NECTAR THICK LIQUIDS. PT RESTFUL T/O MOST OF THE SHIFT AND BECAME RESTLESS APROX 0430. PT MED PER APR. BLADDER SCAN OF 574. TRANSFERED PT TO BSC; UNABLE TO VOID ON HIS OWN. STRAIGHT CATH PT AND APROX 600 MLS OUT. BED ALARM IN PLACE. WHEN AWAKE; PT FREQUENTLY ATTEMPTED OOB. PT HAS BEEN REDIRECTABLE WITH ASSIST. CALL LIGHT ACCESSIBLE. CARE WILL CONT UNTIL REPORT GIVEN TO ONCOMING NURSE.
--- NOTE | 2024-10-22 18:27 | NUR ---
SHIFT SUMMARY PT CONT WITH COMFORT MEASURES. PT NOTED TO BE DIFFICULT TO AROUSE AT BEING OF SHIFT PT WOULD ONLY RESPOND TO A STURNAL RUB BY GRUNTING THEN ABOUT 1100 PT NOTED TO BE AWAKE AND VERY IMPULSIVE AND NOT ABLE TO BE REDIRECTED. WAS ASSISTED TO BSC TO TRY AND AID IN IMPULSIVITY WITH NO EFFECTIVENESS, PT CONT TO BE NONREDIRECTABLE PT GIVEN PRN ATIVAN AND ROXONAL PT CONT TO BE AGITATED AND IMPULSIVE. PT NOW HAS A 1:1 SITTER TO SUPERVISOR FISH PROCESSING IN IMPULSIVITY AND SAFTEY. PT NOTED TO HAVE NOTED VOIDED ON HIS OWN ALL SHIFT BLADDER SCAN COMPLETED AT 1250 AND NOTED 247ML UNINE IN BLADDER. REPEATED BLADDED SCAN D/T NO VOID AT 1510 AND WAS 400ML IN BLADDER STRAIGHT CATH PT AND NOTED 450ML URINE OUTPUT WILL CONT TO MONITOR.
--- NOTE | 2024-10-23 03:04 | NUR ---
SHIFT SUMMARY: AO TO SELF. PT WOKE UP IN THE MIDDLE OF THE NIGHT VERY AGITATED AND DIFFICULT TO COMFORT, ATIVAN GIVEN PER eMAR. BLADDER SCANNING WAS DONE THIS SHIFT THROUGHOUT THE NIGHT. NO NEED TO CATHETERIZE AT THIS TIME. ENCOURAGED FLUID INTAKE WHILE PATIENT WAS AWAKE, BUT PT REFUSED. CALL LIGHT IS WITHIN REACH. BED ALARM IS ON. 1:1 SITTER AT BEDSIDE. BED IS LOW AND LOCKED. SEIZURE PRECAUTIONS IN PLACE.
--- NOTE | 2024-10-23 16:39 | NUR ---
RETURNED A CALL TO PT'S . SHE REQUESTED DISCUSSING GOALS OF CARE, SPECIFICALLY WHAT THE PLAN LOOKS LIKE IN THE COMING DAYS. THIS PC RN EXPLAINED WE ARE WAITING FOR NEWS ON INTERMEDIATE MEDICAID, SHE HAS MADE IT CLEAR SHE IS UNABLE TO CARE FOR HIM. NO CHANGES TO PLAN OF CARE AT THIS TIME.
--- NOTE | 2024-10-23 18:16 | NUR ---
PT IS A/Ox0-1. SPEECH IS MUMBLED AND HARD TO UNDERSTAND. PT WAS AGITATED THIS MORNING AND ATTEMPTED TO GET OUT OF BED AND HAD TO BE REDIRECTED. AGITATION TREATED PER EMAR. PT REPORTED NO PAIN THIS SHIFT. PT WAS STRAIGHT CATHED AT 1740 WITH AN OUTPUT OF 400ML. HE HAS BEEN SLEEPING IN BED MOST OF THE SHIFT BUT IS EASILY AROUSABLE. 1:1 SITTER.
--- NOTE | 2024-10-24 05:56 | NUR ---
SHIFT SUMMARY: PT IS ORIENTED TO SELF CURRENTLY. PT WAS VERY CONFUSED THIS SHIFT AND WAS NOT ORIENTED. PT HAS A 1:1 SITTER. IS BEING MEDICATED PER eMAR. ALSO HAS AN ORDER OF BUE SOFT RESTRAINTS FOR PT SAFETY WELL BEING COMBATIVE. CALL LIGHT IS WITHIN REACH. BED IS LOW AND LOCKED.
--- NOTE | 2024-10-24 16:28 | NUR ---
PT IS A/Ox1. REMAINS WITH A 1:1 SITTER IN SOFT WRIST RESTRAINTS. INTERMITTENT PERIODS OF IMPULSIVITY/AGITATION T/O SHIFT. AGITATION TREATED PER EMAR. NO ACUTE CHANGES.
--- NOTE | 2024-10-24 16:36 | NUR ---
THIS PC RN HAD LONG DISCUSSION WITH PT'S XOCHILT TODAY. THE PATIENT CONTINUES TO SHOW S/S OF ANXIETY AND PAIN. HE CONTINUES TO REQUIRE A SITTER DUE TO ATTEMPT TO CLIMB OUT OF BED AT TIMES. HE IS BECOMING WEAKER, BUT CONTINUES PULLING OFF GOWN, BRIEF, ECT. HAS STATED ON SEVERAL OCCASIONS THE PATIENT IS "TOO SEDATED," BUT TODAY SHE CLARIFIED THAT BY SEDATED, SHE MEANT "AGITATED." SHE NOTED HE IS ATTEMPTING TO REMOVE GOWN, ATTEMPTING TO CLIMB OUT OF BED. ONCE THE MISUNDERSTANDING OF THE WORDING WAS CORRECTED, AGREES TO MAKE PT MORE COMFORTABLE WITH CURRENT REGIMEN. DR. SOMERS ADDED SEROQUEL, FOR AGITATION. V/U. ALSO STATES SHE WOULD PREFER PATIENT BE MADE COMFORTABLE VS TEARING OFF CLOTHING, ETC. SHE STATES IT IS OK IF HE IS RESTING MORE, SHE STATES SHE MEANT HE WAS "AGITATED, NOT SEDATED."
--- NOTE | 2024-10-25 04:05 | NUR ---
SHIFT SUMMARY: PT IS DISORIENTED TO SELF, PERSON, PLACE, AND DATE THIS SHIFT. PT REPEATEDLY ATTEMPTS TO GET OOB EVERY 1-2 HOURS WHEN RESTRAINTS LOOSENED. 1:1 SITTER AT BEDSIDE. MEDICATED PER eMAR. CALL LIGHT IS WITHIN REACH. BED ALARM IS ON. BED IS LOW AND LOCKED.
--- NOTE | 2024-10-25 07:15 | NUR ---
ASSUMED CARE OF PATIENT AT THIS TIME. PATIENT RESTING IN BED WATCHING TV. PLAN IS TO D/C TODAY. PATIENT DENIES NEEDS AT THIS TIME.
--- NOTE | 2024-10-25 15:14 | NUR ---
ASSESSED PATIENT THIS AM. HE WAS RESTING COMFORTABLY IN BED AND CURRENTLY ASLEEP. DISCUSSED CASE WITH CARE COORDINATION. ATTEMPTED TO CALL SPOUSE.
--- NOTE | 2024-10-25 17:05 | NUR ---
PATIENT RESTING IN BED, PULLING AGAINST RESTRAINTS CURRENTLY. PATIENT RESTED WELL FOR ABOUT 2-3 HOURS TODAY OUT OF RESTRAINTS. NEW ORDERED PLACED 1421 AND PATIENT WAS MEDICATED PER EMAR. CATH WAS PLACED DUE TO RETENTION, DR MILE VICKERS'D ORDER. 1000ML OUT IN CATH UPON PLACEMENT. PATIENT TURNED Q2, AND ADJUSTED NEEDED WITH RESTRAINTS. PATIENT WAS ONLY ORIENTED TO SELF TODAY, NOT REDIRECTABLE, STRUGGLING WITH FOLLOWING DIRECTIONS. PATIENT HAD POOR PO INTAKE, BED ALARM PLACED.
--- NOTE | 2024-10-26 04:16 | NUR ---
SHIFT SUMMARY: PT DISORIENTED TO SELF, PLACE, PERSON, TIME. PT CURRENTLY ON WRIST RESTRAINTS. PT REPEATEDLY ATTEMPTS TO GET OOB WHEN RESTRAINTS ARE LOOSENED. MEDICATED PER eMAR. BED ALARM IS ON. CALL LIGHT IS WITHIN REACH. BED IS LOW AND LOCKED.
--- NOTE | 2024-10-26 17:00 | NUR ---
PATIENT ON COMFORT CARE. PATIENT ORIENTED TO SELF ONLY. MEDICATED WITH ROXANOL AND SEROQUEL THIS SHIFT. ATTEMPTED TO TAKE PATIENT OUT OF WRIST RETRAINTS, BUT PATIENT CONTINUES TO TRY AND PULL AT LINES AND CLIMB OUT OF BED. AT BEDSIDE BRIEFLY. WRAY TO GRAVITY. PATIENT TAKES PILLS WELL WITH APPLESAUCE. PATIENT DRINKING AND EATING SMALL AMOUNTS WITH ASSISTANCE. AWAITING HOSPICE PLACEMENT.
--- NOTE | 2024-10-27 05:15 | NUR ---
SHIFT SUMMARY NOC PT A/O TO SELF. ON COMFORT CARE MEASURES. PT HAS BEEN LETHARGIC AND SLEPT FOR MAJORITY OF SHIFT. BILATERAL SOFT WRIST RESTRAINTS STILL IN PLACE DUE TO PT ATTEMPTING TO PULL OUT WRAY CATHETER. PT WAS UNABLE TO TAKE BEDTIME LITHIUM DUE TO LETHARGY AND HIGH ASPIRATION RISK. EARLY THIS MORNING PT BECAME HIGHLY AGITATED AND APPEARED TO BE IN PAIN AND TREATED PER EMAR. PT CURRENTLY RESTING WITH BED ALARM ON, BED IN LOWEST POSITION, AND CALL LIGHT WITHIN REACH.
--- NOTE | 2024-10-27 07:16 | NUR ---
ASSUMED CARE OF PATIENT AT THIS TIME
--- NOTE | 2024-10-27 10:51 | NUR ---
Discussed pt's medication regimen with Dr. López. Pt currently in soft restraints for agitation. Noted Seroquel to be prn, with none scheduled. Dr. López gave v/o for scheduling it BID, and leaving prn in place.
[2024-10-27] MEDS ORDERED: Magnesium Hydroxide Conc 10 ML UDC PO PRN (15:20)
--- NOTE | 2024-10-27 17:32 | NUR ---
PATIENT WAS RESTING WELL MOST OF THE DAY. WRIST RESTRIANTS REMOVED FROM MORNING TIME INTO THE AFTERNOON. NEW ORDER PLACED FOR WRIST RESTRIANTS IN THE AFTERNOON DUE TO PATIENT TRYING TO GET OUT OF BED, PULLING AT LINES AND NOT REDIRECTABLE. PATIENT HAS SHALLOW EQUAL BREATHING. BOWEL CARE STARTED. WAS AT BEDSIDE FOR ABOUT AN HOUR TODAY. STATED CASE MANAGEMENT CALLED HER TODAY AND ASKED TO D/C PATIENT HOME TO HER, SHE IS UNABLE TO CARE FOR HIM AT HOME. PATIENT ATE SOME BREAKFAST AND LUNCH WITH STAFF TODAY.
[2024-10-27 20:58] VITALS: BP 118/74
--- NOTE | 2024-10-28 04:27 | NUR ---
SHIFT SUMMARY PATIENT ALERT AND ORIENTED X1. PATIENT REMAINED PLEASANT AND RECEPTIVE DURING CARE. NO ACUTE CHANGE DURING THIS SHIFT. WRAY INTACT AND PATENT. PATIENT REPOSITIONED Q2H. ADMINISTERED MEDICATION PER EMAR. BED LOCKED AND IN LOWEST POSITION. CALL LIGHT WITHIN REACH.
--- NOTE | 2024-10-28 12:45 | NUR ---
PER BEDSIDE RN, PT ASSESSED BY PSYCH TODAY. THIS PC RN WAS ASKED BY BEDSIDE RN TO FOLLOW UP CONSULT WITH TO REVIEW CARE PLAN AND MEDICATION INTERVENTIONS. REVIEWED CURRENT S/SX OF POORLY MANAGED AGITATION RESULTING IN RESTRAINTS. WILL REVIEW HOME RX WITH CURRENT CARE PLAN AND CONSULT WITH . PC TO FOLLOW UP WITH .
--- NOTE | 2024-10-28 13:41 | NUR ---
FOLLOW UP CONVERSATION WITH RE: CARE PLAN AND MEDICATION MANAGEMENT. REPORTS HE WILL BE REVIEWING MEDICATIONS AND WILL PLACE NEW ORDERS. UPDATE PROVIDED TO BREAK RN COVERING BEDSIDE RN. PC TO REMAIN AVAILABLE NEEDED.
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
--- NOTE | 2024-10-29 05:45 | NUR ---
SHIFT SUMMARY PATIENT ALERT AND ORIENTED X1. NO ACUTE CHANGE DURING THIS SHIFT. MEDICATION SELF-REPOSITIONED THROUGHOUT THE SHIFT. COMMUNICATED AND INTERACTED APPROPRIATELY DURING CARE. PATIENT SLEPT MOST OF THE NIGHT NO SIGNS OF DISTRESS, RESPIRATION EVEN AND UNLABORED. RESTRAINT D/C D AT 1999. BED LOCKED AND IN LOWEST POSITION. CALL LIGHT WITHIN REACH.
--- NOTE | 2024-10-29 17:37 | NUR ---
SHIFT SUMMARY: PATIENT ON CC MEASURE. PATIENT A/O TO SELF, CONFUSED, BUT REDIRECTABLE. PATIENT RECEIVED SCHEDULED AND COMFORT CARE MEDS PER EMAR c GOOD EFFECT. PATIENT TAKES MEDS CRUSHED MIXED IN APPLE SAUCE, POOR APPETITE. PATIENT REPOSITION T/O SHIFT AND ORAL CARE DONE. PATIENT HAS WRAY FOR END OF LIFE COMFORT CARE. PATIENT APPEARS RESTING COMFORTABLY, NO FACIAL GRIMACES NOTED. BED ALARM ON FOR SAFETY. CALL LIGHT IN REACH.
--- NOTE | 2024-10-30 05:13 | NUR ---
SHIFT SUMMARY PT ALERT TO SELF. RESPONDS TO STIMULI. MEDICATED FOR PAIN USING THE FLACC SCALE. FOELY IN PLACE DRAINING DARK YELLOW URINE. REPOSITIONED DURING THE NIGHT BUT PT WIGGLES/TURNS IN BED IND. NO ACUTE CHANGES. BED ALARM ON. BED IN LOWEST POSITION AND CALL LIGHT IN REACH.
--- NOTE | 2024-10-30 16:56 | NUR ---
1005 SUPPORTIVE COMFORT CARE VISIT: ROUNDED ON PT TO ADDRESS CONCERNS. PT IS CURRENTLY NON RESPONSIVE. BREATHING IS UNLABORED AND REGULAR. PER PRIMARY RN PT MEDICATIONS HELD THIS MORNING DUE TO PT INABILITY TO SWALLOW. PT HAS NO EXHIBITED ANY S/S OF AGGRESSION, AGITATION. PT HAS HAD S/S OF PAIN WHICH RN TREATED FOR EARLIER. PAINAD CURRENTLY 0/10. PRIMARY RN HAS NO FURTHER CONCERNS.
--- NOTE | 2024-10-30 17:43 | NUR ---
SHIFT SUMMARY: PATIENT WAS LETHARGIC THIS MORNING AND NOT FOLLOWING COMMANDS. PATIENT MORNING SCHEDULED MEDS WAS NOT GIVEN. DR. TREADWELL NOTIFIED DURING MORNING ROUNDING. PATIENT TOOK HIS SCHEDULED MED THIS AFTERNOON WITHOUT ANY DIFFICULTIES. PATIENT MEDICATED FOR COMFORT PER EMAR c GOOD EFFECT. PATIENT RECEIVED BEDBATH, LINEN CHANGED, REPOSITION AND ORAL CARE. PATIENT APPEARS RESTING COMFORTABLY, RESPIRATION UNLABORED c 10-12 BREATHS/MIN. PATIENT WRAY PATENT, DRAINING MINIMAL TERRANCE COLOR URINE. PATIENT DECLINED BREAKFAST AND LUNCH. BED ALARM ON FOR SAFETY. CALL LIGHT IN REACH.
--- NOTE | 2024-10-31 04:25 | NUR ---
SHIFT SUMMARY PT RESPONDS TO VERBAL STIMULI. RESPIRATIONS SLOWED TO ABOUT 10-12 BREATHS PER MIN, WITH OCCASIONAL SHORT PAUSES NOTED. UPDATED ON PT'S CONDITION. MEDICATED FOR PAIN USING FLACC SCALE. VERY LITTLE PO INTAKE. WRAY IN PLACE DRAINING TERRANCE URINE. BED ALARM ON. BED IN LOWEST POSITION AND CALL LIGHT IN REACH.
--- NOTE | 2024-10-31 17:47 | NUR ---
SHIFT SUMMARY: PATIENT ON COMFORT CARE MEASURE. PATIENT MEDICATED PER EMAR, REPOSITION AND ORAL CARE FOR COMFORT. PATIENT OPEN HIS EYES BRIEFLY c REPOSITIONING AND VERBAL STIMULI. PATIENT RESPIRATION HAS SLOWED TO 8-10 BREATHS/MIN c OCCASIONAL PAUSES NOTED T/O SHIFT. PATIENT HAS HAD NO ORAL INTAKE THIS SHIFT. PATIENT HAS WRAY, PATENT DRAINING 200 MLS TERRANCE URINE THIS SHIFT. PATIENT SPOUSE (XOCHILT) VISITED TODAY, UPDATED ON PATIENT'S CONDITION. XOCHILT VERBALIZED UNDERSTANDING AND NO FURTHER QUESTIONS. BED IN LOWEST POSITION. CALL LIGHT IN REACH.
--- NOTE | 2024-11-01 03:05 | NUR ---
SHIFT SUMMARY/COMFORT CARE NOTE NO ACUTE EVENTS DURING THIS SHIFT. BY THE BEDSIDE T/O THE NIGHT. SOME AGITATION EARLY AM HRS, MEDICATED WITH ROXYNOL AND ATIVAN ORDERED. REPOSITIONED T/O THIS SHIFT. BED AT THE LOWEST POSITION, THREE RAILS UP. CALL LIGHT W/I REACH. PT RESTING W/O ACUTE DISTRESS.
--- NOTE | 2024-11-01 17:43 | NUR ---
SHIFT SUMMARY REMAINS ON COMFORT CARE. WAKENS TO VERBAL STIMULI. RESTLESS AT TIMES - MEDICATED PER EMAR. PT NOW RESTING PEACEFULLY WITH NO S/SX OF DISTRESS. WRAY PATENT AND DRAINING TERRANCE COLORED URINE. REPOSITIONED TOLERATED BY PT. ORAL CARE COMPLETED PRIOR TO MEDICATING. BED BATH COMPLETED BY AIR TUBE RELEASER. BED IN LOWEST POSITION, CALL LIGHT IN REACH, BED ALARM ON. SPOUSE NOT STAYING WITH PT TONIGHT AND REQUEST STAFF CALL AT ANYTIME WITH ANY CONCERNS OR CHANGES.
--- NOTE | 2024-11-02 03:50 | NUR ---
SHIFT SUMMARY/COMFORT CARE NOTE NO ACUTE EVENTS DURING THIS SHIFT. WRAY DRAINING TEA COLOR URINE. MEDICATED PER EMAR ORDERS FOR COMFORT AND PAIN. PT RESTING W/O ACUTE DISTRESS T/O THE NIGHT. BED AT THE LOWEST POSITION, CALL LIGHT W/I REACH. PT RESPONDS TO PAIN AND VERBAL STIMULI.
--- NOTE | 2024-11-02 16:35 | NUR ---
SHIFT SUMMARY PT REMAINS ON COMFORT CARE. MEDICATED PER EMAR FOR PAIN AND RESPIRATORY DISTRESS - EFFECTIVE. MINIMAL URINE OUTPUT. WRAY CATHETER PATENT AND DRAINING TERRANCE COLORED. CATHETER CARE COMPLETED. ORAL CARE AND REPOSITIONING COMPLETED PER PROTOCOL. PT CYANOTIC AND STIFF. GUPPY BREATHING AT TIMES. PT SPOUSE AT BEDSIDE. PT RESTING PEACEFULLY WITH BED IN LOWEST POSITION AND CALL LIGHT IN REACH. BED ALARM ON.
--- NOTE | 2024-11-02 22:15 | NUR ---
REPORT GIVEN BY THIS CONSOLIDATION ACCOUNTANT TO ARUN PINO.
--- NOTE | 2024-11-03 04:49 | NUR ---
SHIFT SUMMARY: PT AOX1-0 RESPONDING ONLY TO PAIN AND SOMETIMES NAME. COMFORT CARE, COMFORTABLE UNLABORED BREATHS. AND DAUGHTER ARE IN THE ROOM. PT TOLERATING MEDICATIONS WELL. WRAY IN PLACE HAVING SOME DRAINAGE. PT MEDICATED FOR COMFORT PER EMR. FAMILY UNDERSTANDING OF THE PLAN AND REGIMENT AND ARE ON BOARD. PT IN BED RESTING COMFORTABLY, BED IN LOWEST POSITION, CALL LIGHT IN REACH. CONTINUING CARE.
--- NOTE | 2024-11-03 07:30 | NUR ---
COMFORT CARE SUPPORTIVE VISIT THIS MORNING. PT OBTUNDED. RESP EUL. NO S/SX OF ACUTE DISTRESS NOTED. PRIMARY RN DENIES ANY ACUTE NEEDS AT THIS TIME. THERAPUTIC LISTENING PROVIDED FOR FAMILY.
--- NOTE | 2024-11-03 11:29 | NUR ---
RN NOTE NO RESPIRATIONS OR HEART BEAT FOR 1 MINUTE WITH STETHOSCOPE. NO PUPILARY REACTION TO LIGHT. CONFIRMED BY LONDON WINN RN. TIME OF ASSESSMENT 0843. FAMILY AT BEDSIDE ( AND DAUGHTER). DR MCCLELLAND NOTIFIED. CHARGE NURSE NOTIFIED. FAMILY SPENT TIME WITH MR ANGUIANO AND HOME [facility] CAME AND TRANSPORTED HIM AT 1100HRS.
== END 2024-11-03 08:43 | DRG 82 ==
LOC: ER 15:52 → PCU 18:56 → MEDS 18:56 → PCU 10-08 20:03 → MEDS 10-13 22:22
PROVIDERS: Emergency Medicine; Internal Medicine; Nurse Practitioner Acute Care; ADMIT Surgery
PROC: 4A033R1 Measurement of Arterial Saturation, Peripheral, Percutaneous Approach (ICD-10-PCS; 2024-10-08)
PROC: 0T9B70Z Drainage of Bladder with Drainage Device, Via Natural or Artificial Opening (ICD-10-PCS; principal; 2024-10-09)
PROC: 3E03329 Introduction of Other Anti-infective into Peripheral Vein, Percutaneous Approach (ICD-10-PCS; 2024-10-09)
DX: S06.6XAA Traumatic subarachnoid hemorrhage with loss of consciousness status unknown, initial encounter (principal); G92.8 Other toxic encephalopathy; G93.41 Metabolic encephalopathy; E87.1 Hypo-osmolality and hyponatremia; I50.32 Chronic diastolic (congestive) heart failure; F02.83 Dementia in other diseases classified elsewhere, unspecified severity, with mood disturbance; Z51.5 Encounter for palliative care; Z66 Do not resuscitate; I48.19 Other persistent atrial fibrillation; F02.811 Dementia in other diseases classified elsewhere, unspecified severity, with agitation; N99.820 Postprocedural hemorrhage of a genitourinary system organ or structure following a genitourinary system procedure; E87.0 Hyperosmolality and hypernatremia; G30.9 Alzheimer's disease, unspecified; F25.9 Schizoaffective disorder, unspecified; R40.2362 Coma scale, best motor response, obeys commands, at arrival to emergency department; R40.2242 Coma scale, best verbal response, confused conversation, at arrival to emergency department; R40.2142 Coma scale, eyes open, spontaneous, at arrival to emergency department; W19.XXXA Unspecified fall, initial encounter; G20.A1 Parkinson's disease without dyskinesia, without mention of fluctuations; I25.10 Atherosclerotic heart disease of native coronary artery without angina pectoris; K21.9 Gastro-esophageal reflux disease without esophagitis; F31.9 Bipolar disorder, unspecified; J44.9 Chronic obstructive pulmonary disease, unspecified; G47.33 Obstructive sleep apnea (adult) (pediatric); D72.829 Elevated white blood cell count, unspecified; I11.0 Hypertensive heart disease with heart failure; F43.10 Post-traumatic stress disorder, unspecified; E78.5 Hyperlipidemia, unspecified; T42.4X1A Poisoning by benzodiazepines, accidental (unintentional), initial encounter; T43.591A Poisoning by other antipsychotics and neuroleptics, accidental (unintentional), initial encounter; Y84.6 Urinary catheterization as the cause of abnormal reaction of the patient, or of later complication, without mention of misadventure at the time of the procedure; R31.9 Hematuria, unspecified; R33.9 Retention of urine, unspecified; Y92.009 Unspecified place in unspecified non-institutional (private) residence as the place of occurrence of the external cause; Z96.651 Presence of right artificial knee joint; Z88.2 Allergy status to sulfonamides; Z88.8 Allergy status to other drugs, medicaments and biological substances; Z88.1 Allergy status to other antibiotic agents; Z79.01 Long term (current) use of anticoagulants; Z87.891 Personal history of nicotine dependence; Z95.1 Presence of aortocoronary bypass graft; Z91.81 History of falling; Z78.1 Physical restraint status; Z74.01 Bed confinement status
CPT/HCPCS: 0202U; 36415; 36600; 51701; 70450; 71045; 72125; 80048; 80053; 80069; 80162; 80178; 81001; 82140; 82803; 82947; 83605; 83735; 83880; 84100; 84145; 84295; 84478; 85025; 85027; 85610; 87040; 87077; 87086; 87186; 92526; 92610; 93005; 93010; 93306; 94760; 99285-25; A9270; C1751; G0480; J0360; J0696; J1160; J2060; J2250; J2470; J2543; J3010; J3360; J3411; J7030; J7042; J7050; J7070